=== PATIENT | female | born 1945 | race Caucasian/White ===

== ENCOUNTER 2021-05-12 17:52 | Inpatient (IN) | payer OTHER ==
[~2021-05-12] VITALS: Ht 147.3 cm; Wt 61.4 kg
[2021-05-12 19:53] LABS: Basophils # (auto) 0 10 ^3/uL (0-0.2); Basophils % (auto) 0.5 % (0.0-2.0); Eosinophils # (auto) 0 10 ^3/uL (0-0.8); Eosinophils % (auto) 0.5 % (0.0-7.0); Hematocrit 37.9 % (36.0-46.0); Hemoglobin 12.9 g/dL (12.2-16.2); Lymphocytes # (auto) 1.8 10 ^3/uL (0.4-5.4); Lymphocytes % (auto) 18.9 % (10.0-50.0); Mean Corpuscular Hemoglobin 31.1 pg (28.0-32.0); Mean Corpuscular Hgb Conc. 33.9 g/dL (32.0-36.0); Mean Corpuscular Volume 91.5 fL (80.0-100.0); Monocytes # (auto) 0.6 10 ^3/uL (0-1.3); Monocytes % (auto) 6.4 % (0.0-12.0); Neutrophils # (auto) 7.1 10 ^3/uL (1.6-8.6); Neutrophils % (auto) 73.7 % (37.0-80.0); Red Blood Cells 4.14 10^6/uL (4.0-5.20); Red Cell Distribution Width 12.8 % (11.8-14.3); White Blood Cell 9.6 10^3/uL (4.4-10.8)
[2021-05-12 20:16] LABS: Alanine Aminotransferase 20 U/L (13-56); Albumin 3.3 g/dL (3.4-5.0); Anion Gap 7 (5-15); Aspartate Aminotransferase 14 U/L (15-37); Blood Urea Nitrogen 23 mg/dL (7-18); Calcium 8.6 mg/dL (8.5-10.1); Carbon Dioxide 25 mmol/L (21-32); Chloride 107 mmol/L (98-107); GFR African American 87 mL/min; GFR Non-African American 72 mL/min; Glucose 91 mg/dL (74-106); Magnesium 2.4 mg/dL (1.6-2.6); Potassium 4.2 mmol/L (3.5-5.1); Sodium 139 mmol/L (136-145)
[2021-05-12 20:22] LABS: Alkaline Phosphatase 73 U/L (45-117); Bilirubin, Total 0.4 mg/dL (0.2-1.0); Total Protein 6.9 g/dL (6.4-8.2)
[2021-05-12] MEDS ORDERED: DOCUSATE SOD 100 MG CAP PO PRN (23:15)
[2021-05-12] MEDS ORDERED: NITROGLYCERIN 0.4 MG SL TAB SL PRN (23:15)
[2021-05-12] MEDS ORDERED: HYDROcodone-ACET 5/325MG TAB PO PRN (23:15)
[2021-05-12] MEDS ORDERED: ACETAMINOPHEN 325 MG TAB PO PRN (23:15)
[2021-05-12] MEDS ORDERED: MORPHINE SULFATE INJECTION 2 MG/2 ML SYRG IV PRN (23:15)
[2021-05-12] MEDS ORDERED: ONDANSETRON HCL 4 MG/2 ML VIAL IV PRN (23:15)
[2021-05-13 04:28] LABS: Basophils # (auto) 0.1 10 ^3/uL (0-0.2); Basophils % (auto) 0.6 % (0.0-2.0); Eosinophils # (auto) 0.1 10 ^3/uL (0-0.8); Eosinophils % (auto) 1.4 % (0.0-7.0); Hematocrit 35.9 % (36.0-46.0); Lymphocytes # (auto) 2.8 10 ^3/uL (0.4-5.4); Mean Corpuscular Hemoglobin 30.4 pg (28.0-32.0); Mean Corpuscular Hgb Conc. 33.3 g/dL (32.0-36.0); Mean Corpuscular Volume 91.1 fL (80.0-100.0); Monocytes # (auto) 0.6 10 ^3/uL (0-1.3); Monocytes % (auto) 7.3 % (0.0-12.0); Neutrophils # (auto) 4.7 10 ^3/uL (1.6-8.6); Neutrophils % (auto) 56.7 % (37.0-80.0); Nucleated Red Blood Cells % 0.1 %; Red Blood Cells 3.94 10^6/uL (4.0-5.20); Red Cell Distribution Width 12.9 % (11.8-14.3); White Blood Cell 8.3 10^3/uL (4.4-10.8)
[2021-05-13 05:00] LABS: Potassium 4.2 mmol/L (3.5-5.1)
[2021-05-13 05:08] LABS: Albumin 3.2 g/dL (3.4-5.0); BUN/Creatinine Ratio 31.6; Bilirubin, Total 0.5 mg/dL (0.2-1.0); Total Protein 6.7 g/dL (6.4-8.2)
[2021-05-13] MEDS: SODIUM CHLOR 0.9% PF (SALINE LOCK) 10ML VIAL/SYR IV SCH ×3 (06:17→20:53)
[2021-05-13 09:49] LABS: Urine Bacteria NONE SEEN /hpf (None Seen); Urine Blood Negative /uL (Negative); Urine Mucus FEW (None Seen); Urine Specific Gravity 1.027 (1.001-1.035); Urine WBC 115 /hpf (0 - 5)
[2021-05-13] MEDS ORDERED: ZINC SULFATE 220mg CAP or TAB PO SCH (10:00)
[2021-05-13] MEDS ORDERED: ASCORBIC ACID 500 MG TAB PO SCH (10:00)
[2021-05-13] MEDS: levETIRAcetam 500 MG TAB PO SCH ×2 (10:28→20:53)
[2021-05-13] MEDS: MULTIPLE VITAMIN TAB PO SCH (10:29)
[2021-05-13] MEDS: ENOXAPARIN SOD 40 MG/0.4 ML SYRINGE SC SCH (10:30)
[2021-05-13] MEDS: FAMOTIDINE 20 MG TAB PO SCH (10:30)
[2021-05-13] MEDS: cefTRIAXone 1GM/50ML D5W 50 ML IV SCH (12:57)
[2021-05-13 15:00] VITALS: BP 122/62
[2021-05-13 16:00] VITALS: BP 122/62
[2021-05-13] MEDS ORDERED: LORazepam 2MG/ML-1ML VIAL IV PRN ×2 (21:15)
[2021-05-13 22:00] VITALS: BP 123/61
[2021-05-14 05:00] VITALS: BP 129/73
[2021-05-14] MEDS: SODIUM CHLOR 0.9% PF (SALINE LOCK) 10ML VIAL/SYR IV SCH ×2 (05:15→14:19)
[2021-05-14 07:13] LABS: Basophils # (auto) 0 10 ^3/uL (0-0.2); Basophils % (auto) 0.7 % (0.0-2.0); Eosinophils # (auto) 0.1 10 ^3/uL (0-0.8); Eosinophils % (auto) 1.1 % (0.0-7.0); Hematocrit 38.7 % (36.0-46.0); Hemoglobin 12.8 g/dL (12.2-16.2); Lymphocytes % (auto) 30.1 % (10.0-50.0); Mean Corpuscular Volume 90.8 fL (80.0-100.0); Monocytes # (auto) 0.4 10 ^3/uL (0-1.3); Monocytes % (auto) 6.3 % (0.0-12.0); Neutrophils # (auto) 4.1 10 ^3/uL (1.6-8.6); Neutrophils % (auto) 61.8 % (37.0-80.0); Red Blood Cells 4.26 10^6/uL (4.0-5.20); Red Cell Distribution Width 12.7 % (11.8-14.3); White Blood Cell 6.7 10^3/uL (4.4-10.8)
[2021-05-14 07:28] LABS: BUN/Creatinine Ratio 28.6; Calcium 9.2 mg/dL (8.5-10.1); Potassium 4.2 mmol/L (3.5-5.1)
[2021-05-14] MEDS ORDERED: LEVE500T32 PO (08:06)
[2021-05-14] MEDS ORDERED: MONT5CHW23 PO (08:06)
[2021-05-14] MEDS ORDERED: GABA300C10 PO (08:06)
[2021-05-14] MEDS ORDERED: DULO60CA PO (08:06)
[2021-05-14] MEDS ORDERED: DICY20TA PO (08:06)
[2021-05-14 08:13] VITALS: BP 147/70
[2021-05-14 08:15] VITALS: BP 147/70
[2021-05-14] MEDS: cefTRIAXone 1GM/50ML D5W 50 ML IV SCH (08:37)
[2021-05-14] MEDS: levETIRAcetam 500 MG TAB PO SCH (10:31)
[2021-05-14] MEDS: FAMOTIDINE 20 MG TAB PO SCH (10:32)
[2021-05-14] MEDS: MULTIPLE VITAMIN TAB PO SCH (10:32)
[2021-05-14] MEDS: ENOXAPARIN SOD 40 MG/0.4 ML SYRINGE SC SCH (10:32)
[2021-05-14] MEDS ORDERED: DULO1CAP6 PO (12:41)
[2021-05-14] MEDS ORDERED: MONT10TA42 PO (12:41)
[2021-05-14] MEDS ORDERED: DICY10CA12 PO (12:41)
[2021-05-14] MEDS ORDERED: LEVE250T3 PO (12:41)
[2021-05-14 13:55] VITALS: BP 151/83
[2021-05-14 15:16] VITALS: BP 151/83
== END 2021-05-14 15:42 | disposition home health service (06) | DRG 689 ==
LOC: ER 17:52 → OVERFLOW 23:11 → CENTRAL 05-13 16:32
PROVIDERS: ADMIT Nurse Practitioner Family; ATTEND Internal Medicine
DX: N39.0 Urinary tract infection, site not specified (principal); G93.41 Metabolic encephalopathy; R55 Syncope and collapse; F32.9 Major depressive disorder, single episode, unspecified; G40.909 Epilepsy, unspecified, not intractable, without status epilepticus; R26.9 Unspecified abnormalities of gait and mobility; F03.90 Unspecified dementia, unspecified severity, without behavioral disturbance, psychotic disturbance, mood disturbance, and anxiety; F43.10 Post-traumatic stress disorder, unspecified; Z79.899 Other long term (current) drug therapy; S09.8XXA Other specified injuries of head, initial encounter; W18.39XA Other fall on same level, initial encounter; Z20.822 Contact with and (suspected) exposure to COVID-19; Z80.3 Family history of malignant neoplasm of breast; Z80.42 Family history of malignant neoplasm of prostate; Z82.49 Family history of ischemic heart disease and other diseases of the circulatory system; Z82.5 Family history of asthma and other chronic lower respiratory diseases; Z87.442 Personal history of urinary calculi; Z90.49 Acquired absence of other specified parts of digestive tract; Z90.710 Acquired absence of both cervix and uterus; Y93.89 Activity, other specified; Y92.098 Other place in other non-institutional residence as the place of occurrence of the external cause; Y99.8 Other external cause status
CPT/HCPCS: 36415; 70450; 70551; 71045; 71250; 80048; 80053; 81001; 82542; 83735; 84484; 85025; 87040; 87086; 87426; 93306; 96365; 96372; 97163; G0378; J0696

== ENCOUNTER 2023-10-26 21:34 | Inpatient (IN) | payer OTHER ==
[~2023-10-26] VITALS: Ht 144.8 cm; Wt 72.7 kg
[~2023-10-26 21:34] MED LIST: DICY10CA12 PO; DICY20TA PO; DULO1CAP6 PO; DULO60CA41 PO; GABA-1250 PO; LEVE250T78 PO; LEVE500T40 PO; MONT-8 PO; MONT5CHW12 PO
[2023-10-27] VITALS (14 sets, daily range): BP systolic 113–149; BP diastolic 58–93; PULSE 66–134; RESP 16–22; TEMP 97.8–98.4; O2SAT 92–99
[2023-10-27] MEDS ORDERED: DOCUSATE SOD 100 MG CAP PO PRN (01:30)
[2023-10-27] MEDS ORDERED: ACETAMINOPHEN 325 MG TAB PO PRN (01:30)
[2023-10-27] MEDS ORDERED: ONDANSETRON HCL 4 MG/2 ML VIAL IV PRN (01:30)
[2023-10-27] MEDS ORDERED: MORPHINE SULFATE INJ 2 MG/ml SYRG IV PRN (01:30)
[2023-10-27] MEDS ORDERED: NITROGLYCERIN 0.4 MG SL TAB SL PRN (01:30)
[2023-10-27] MEDS ORDERED: ALBUTEROL SULF 2.5 MG/0.5ML(0.5%) NEB SOLN NEB PRN (01:30)
[2023-10-27 06:43] LABS: Chloride 109 mmol/L (98-107); Potassium 4.7 mmol/L (3.5-5.1); Sodium 140 mmol/L (136-145)
[2023-10-27 06:44] LABS: Anion Gap 9 (5-15); Carbon Dioxide 22 mmol/L (20-30)
[2023-10-27 06:45] LABS: Calcium 9.5 mg/dL (8.7-10.4)
[2023-10-27 06:49] LABS: Basophils # (auto) 0 10 ^3/uL (0-0.2); Basophils % (auto) 0.1 % (0.0-2.0); Eosinophils # (auto) 0 10 ^3/uL (0-0.8); Glucose 131 mg/dL (74-106); Hematocrit 33.2 % (36.0-46.0); Lymphocytes # (auto) 0.7 10 ^3/uL (0.4-5.4); Lymphocytes % (auto) 6.7 % (10.0-50.0); Mean Corpuscular Hemoglobin 29.9 pg (28.0-32.0); Mean Corpuscular Hgb Conc. 33.1 g/dL (32.0-36.0); Mean Corpuscular Volume 90.6 fL (80.0-100.0); Monocytes # (auto) 0.3 10 ^3/uL (0-1.3); Monocytes % (auto) 2.5 % (0.0-12.0); Neutrophils # (auto) 9.6 10 ^3/uL (1.6-8.6); Neutrophils % (auto) 90.7 % (37.0-80.0); Red Blood Cells 3.67 10^6/uL (4.0-5.20); Red Cell Distribution Width 13.7 % (11.8-14.3); White Blood Cell 10.6 10^3/uL (4.4-10.8)
[2023-10-27 06:50] LABS: Blood Urea Nitrogen 16 mg/dL (9-23)
[2023-10-27] MEDS: methylPREDNISolone SOD SUCC 125 MG/2 ML VL IV SCH ×2 (09:45→22:08)
[2023-10-27] MEDS: levETIRAcetam 500 MG TAB PO SCH ×2 (09:46→22:07)
[2023-10-27] MEDS: PANTOPRAZOLE 40 MG TAB PO SCH (09:46)
[2023-10-27] MEDS: DULoxetine HCL 30 MG CAP PO SCH (09:46)
[2023-10-27] MEDS: APIXABAN 2.5 MG TAB PO SCH ×2 (09:46→22:07)
[2023-10-27] MEDS ORDERED: METOPROLOL TARTRATE 25 MG TAB PO SCH (10:00)
[2023-10-27] MEDS: LOPERAMIDE HCL 2 MG CAP/TAB PO PRN ×2 (15:40→22:06)
[2023-10-27] MEDS ORDERED: ALBUTEROL SULF 2.5 MG/0.5ML(0.5%) NEB SOLN NEB SCH (15:45)
[2023-10-27] MEDS ORDERED: LORazepam 0.5 MG TAB PO ONE (17:45)
[2023-10-27] MEDS: ALBUTEROL SULF 2.5 MG/0.5ML(0.5%) NEB SOLN NEB SCH ×2 (18:27→22:06)
[2023-10-28] VITALS (16 sets, daily range): BP systolic 113–140; BP diastolic 68–94; PULSE 86–140; RESP 14–18; TEMP 96.9–98.3; O2SAT 92–100
[2023-10-28] MEDS ORDERED: dilTIAZem 25 MG/5 ML VIAL IV ONE ×4 (00:30→23:30)
[2023-10-28] MEDS ORDERED: METOPROLOL TARTRATE 25 MG TAB PO SCH (01:00)
[2023-10-28 06:39] LABS: Hematocrit 34.1 % (36.0-46.0); Mean Corpuscular Hgb Conc. 32.3 g/dL (32.0-36.0); Mean Corpuscular Volume 89.8 fL (80.0-100.0); Red Cell Distribution Width 13.5 % (11.8-14.3); White Blood Cell 15.5 10^3/uL (4.4-10.8)
[2023-10-28 06:42] LABS: Chloride 110 mmol/L (98-107); Potassium 4.6 mmol/L (3.5-5.1); Sodium 141 mmol/L (136-145)
[2023-10-28 06:43] LABS: Anion Gap 8 (5-15); Calcium 9.8 mg/dL (8.5-10.1); Carbon Dioxide 23 mmol/L (20-30)
[2023-10-28 06:48] LABS: BUN/Creatinine Ratio 20.9 (10.0-20.0); Blood Urea Nitrogen 18 mg/dL (9-23); Glucose 131 mg/dL (74-106)
[2023-10-28] MEDS: ALBUTEROL SULF 2.5 MG/0.5ML(0.5%) NEB SOLN NEB SCH ×5 (07:12→22:00)
[2023-10-28 07:35] LABS: Band Neutrophils % (manual) 0; Basophils % (manual) 0 (0.0-2.0); Blast Cells 0; Eosinophils % (manual) 0 (0-7); Metamyelocytes % 0; Myelocytes % 0; Promyelocytes % 0; Reactive Lymphocytes 0
[2023-10-28 07:50] LABS: INR 1.23 (0.9-1.15); Partial Thromboplastin Time 31.9 SEC (24.5-34.5); Prothrombin Time 12.7 sec (9.3-11.8)
[2023-10-28 08:50] LABS: Lymphocytes % (manual) 4 (10.0-50.0); Monocytes % (manual) 2 (0-12); Platelet Estimate Adequate
[2023-10-28] MEDS ORDERED: DIGOXIN 0.25 MG TAB PO ONE (09:00)
[2023-10-28] MEDS: SODIUM CHLORIDE 0.9% 1,000 ML IV SCH ×2 (09:23→20:52)
[2023-10-28] MEDS: APIXABAN 2.5 MG TAB PO SCH ×2 (10:00→20:51)
[2023-10-28] MEDS: methylPREDNISolone SOD SUCC 125 MG/2 ML VL IV SCH ×2 (10:26→20:51)
[2023-10-28] MEDS: PANTOPRAZOLE 40 MG TAB PO SCH (10:29)
[2023-10-28] MEDS: DULoxetine HCL 30 MG CAP PO SCH (10:29)
[2023-10-28] MEDS: levETIRAcetam 500 MG TAB PO SCH ×2 (10:30→20:50)
[2023-10-28] MEDS: METOPROLOL TARTRATE 50 MG TAB PO SCH (11:19)
[2023-10-28] MEDS ORDERED: LIDOCAINE 2%HCL (LOCAL ANESTH.) INJ 20ML MDV ONE (11:48)
[2023-10-28] MEDS ORDERED: IODIXANOL 320MG/ML 100ML BTL IV ONE (11:48)
[2023-10-28] MEDS ORDERED: SODIUM CHL 0.9% 0 ML ONE (11:58)
[2023-10-28] MEDS ORDERED: fentaNYL CITRATE 100 MCG/2 ML VL ONE (11:58)
[2023-10-28] MEDS ORDERED: ANGIOMAX 250 MG VIAL IV ONE (11:58)
[2023-10-28] MEDS ORDERED: MIDAZOLAM HCL 2MG/2ML 2ml VIAL (1mg/ml) ONE (11:58)
[2023-10-28] MEDS: SACUBITRIL-VALSARTAN 24mg/26mg TAB PO SCH (20:51)
[2023-10-29] VITALS (18 sets, daily range): BP systolic 106–130; BP diastolic 53–83; PULSE 69–128; RESP 4–18; TEMP 97.7–98.4; O2SAT 94–100
[2023-10-29 05:18] LABS: Basophils # (auto) 0 10 ^3/uL (0-0.2); Basophils % (auto) 0.1 % (0.0-2.0); Eosinophils # (auto) 0 10 ^3/uL (0-0.8); Eosinophils % (auto) 0.1 % (0.0-7.0); Hematocrit 39.2 % (36.0-46.0); Hemoglobin 12.8 g/dL (12.2-16.2); Lymphocytes # (auto) 0.4 10 ^3/uL (0.4-5.4); Lymphocytes % (auto) 3.8 % (10.0-50.0); Mean Corpuscular Hemoglobin 29.6 pg (28.0-32.0); Mean Corpuscular Hgb Conc. 32.7 g/dL (32.0-36.0); Mean Corpuscular Volume 90.4 fL (80.0-100.0); Monocytes # (auto) 0.3 10 ^3/uL (0-1.3); Monocytes % (auto) 2.6 % (0.0-12.0); Neutrophils # (auto) 10.2 10 ^3/uL (1.6-8.6); Neutrophils % (auto) 93.4 % (37.0-80.0); Red Blood Cells 4.34 10^6/uL (4.0-5.20); Red Cell Distribution Width 13.6 % (11.8-14.3); White Blood Cell 10.9 10^3/uL (4.4-10.8)
[2023-10-29 05:22] LABS: Chloride 107 mmol/L (98-107); Potassium 3.9 mmol/L (3.5-5.1); Sodium 140 mmol/L (136-145)
[2023-10-29 05:23] LABS: Anion Gap 7 (5-15); Carbon Dioxide 26 mmol/L (20-30)
[2023-10-29 05:24] LABS: Calcium 9.4 mg/dL (8.7-10.4)
[2023-10-29 05:28] LABS: Blood Urea Nitrogen 18 mg/dL (9-23); Glucose 123 mg/dL (74-106)
[2023-10-29] MEDS: ALBUTEROL SULF 2.5 MG/0.5ML(0.5%) NEB SOLN NEB SCH ×5 (07:02→21:15)
[2023-10-29] MEDS: IPRATROPIUM BROM 0.5 MG/2.5ML INH SOL NEB PRN ×3 (07:03→18:34)
[2023-10-29] MEDS: DIGOXIN 0.125 MG TAB PO SCH (08:13)
[2023-10-29] MEDS: METOPROLOL TARTRATE 50 MG TAB PO SCH (08:14)
[2023-10-29] MEDS: SACUBITRIL-VALSARTAN 24mg/26mg TAB PO SCH ×2 (08:14→21:41)
[2023-10-29] MEDS: levETIRAcetam 500 MG TAB PO SCH ×2 (09:17→21:41)
[2023-10-29] MEDS: APIXABAN 2.5 MG TAB PO SCH ×2 (09:20→21:42)
[2023-10-29] MEDS: DULoxetine HCL 30 MG CAP PO SCH (09:20)
[2023-10-29] MEDS: methylPREDNISolone SOD SUCC 125 MG/2 ML VL IV SCH ×2 (09:21→21:42)
[2023-10-29] MEDS: EMPAGLIFLOZIN 10 MG TAB PO SCH (09:21)
[2023-10-29] MEDS: PANTOPRAZOLE 40 MG TAB PO SCH (09:21)
[2023-10-29] MEDS: SODIUM CHLORIDE 0.9% 1,000 ML IV SCH (12:49)
[2023-10-29] MEDS ORDERED: METOPROLOL SUCCINATE XL 50 MG TAB PO ONE (16:00)
[2023-10-29] MEDS ORDERED: METOPROLOL TARTRATE 1MG/1ML-5ML VIAL IV ONE (19:30)
[2023-10-29] MEDS ORDERED: dilTIAZem 25 MG/5 ML VIAL IV ONE (20:30)
[2023-10-29] MEDS ORDERED: traZODone HCL 50 MG TAB PO SCH (22:00)
[2023-10-30] VITALS (12 sets, daily range): BP systolic 101–121; BP diastolic 57–99; PULSE 56–176; RESP 16–22; TEMP 36.7; O2SAT 91–100
[2023-10-30] MEDS: SODIUM CHLORIDE 0.9% 1,000 ML IV SCH ×2 (02:01→14:20)
[2023-10-30 05:51] LABS: Chloride 107 mmol/L (98-107); Sodium 142 mmol/L (136-145)
[2023-10-30 05:52] LABS: Anion Gap 5 (5-15); Carbon Dioxide 30 mmol/L (20-30)
[2023-10-30 05:53] LABS: Calcium 8.9 mg/dL (8.7-10.4)
[2023-10-30 05:57] LABS: Glucose 139 mg/dL (74-106)
[2023-10-30 05:58] LABS: BUN/Creatinine Ratio 23.9 (10.0-20.0); Blood Urea Nitrogen 21 mg/dL (9-23)
[2023-10-30 06:15] LABS: Basophils # (auto) 0 10 ^3/uL (0-0.2); Eosinophils # (auto) 0 10 ^3/uL (0-0.8); Hematocrit 38.4 % (36.0-46.0); Hemoglobin 12.6 g/dL (12.2-16.2); Lymphocytes # (auto) 0.4 10 ^3/uL (0.4-5.4); Lymphocytes % (auto) 4.3 % (10.0-50.0); Mean Corpuscular Hemoglobin 29.3 pg (28.0-32.0); Mean Corpuscular Hgb Conc. 32.7 g/dL (32.0-36.0); Mean Corpuscular Volume 89.4 fL (80.0-100.0); Monocytes # (auto) 0.2 10 ^3/uL (0-1.3); Monocytes % (auto) 2.5 % (0.0-12.0); Neutrophils # (auto) 9.4 10 ^3/uL (1.6-8.6); Neutrophils % (auto) 93.2 % (37.0-80.0); Nucleated Red Blood Cells % 0.1 %; Red Blood Cells 4.29 10^6/uL (4.0-5.20); Red Cell Distribution Width 13.3 % (11.8-14.3); White Blood Cell 10.1 10^3/uL (4.4-10.8)
[2023-10-30] MEDS: ALBUTEROL SULF 2.5 MG/0.5ML(0.5%) NEB SOLN NEB SCH ×4 (06:57→18:00)
[2023-10-30] MEDS: IPRATROPIUM BROM 0.5 MG/2.5ML INH SOL NEB PRN ×3 (06:57→14:23)
[2023-10-30] MEDS: PANTOPRAZOLE 40 MG TAB PO SCH (09:00)
[2023-10-30] MEDS: APIXABAN 2.5 MG TAB PO SCH (09:00)
[2023-10-30] MEDS: DIGOXIN 0.125 MG TAB PO SCH (09:00)
[2023-10-30] MEDS: levETIRAcetam 500 MG TAB PO SCH (09:02)
[2023-10-30] MEDS: EMPAGLIFLOZIN 10 MG TAB PO SCH (09:03)
[2023-10-30] MEDS: DULoxetine HCL 30 MG CAP PO SCH (09:30)
[2023-10-30] MEDS: SACUBITRIL-VALSARTAN 24mg/26mg TAB PO SCH (09:30)
[2023-10-30] MEDS: methylPREDNISolone SOD SUCC 125 MG/2 ML VL IV SCH (09:31)
[2023-10-30] MEDS ORDERED: dilTIAZem 120MG ER CAP PO SCH (10:00)
[2023-10-30] MEDS ORDERED: METOPROLOL SUCCINATE XL 50 MG TAB PO SCH (10:00)
[2023-10-30] MEDS ORDERED: DIGO1TAB48 PO ×3 (15:05→16:07)
[2023-10-30] MEDS ORDERED: SACU1TAB PO ×3 (15:05→16:07)
[2023-10-30] MEDS ORDERED: APIX2.5T PO ×3 (15:05→16:07)
[2023-10-30] MEDS ORDERED: EMPA1TAB PO ×3 (15:05→16:07)
[2023-10-30] MEDS ORDERED: METO-6 PO ×3 (15:05→16:07)
[2023-10-30] MEDS ORDERED: ALBUAER3 IN ×3 (15:05→16:07)
[2023-10-30] MEDS ORDERED: DILT-29 PO ×3 (15:06→16:07)
== END 2023-10-30 18:47 | disposition home or self-care (01) | DRG 286 ==
LOC: TELE-CENTR 10-27 00:40
PROVIDERS: ADMIT Nurse Practitioner Family; ATTEND Internal Medicine
PROC: 4A023N8 Measurement of Cardiac Sampling and Pressure, Bilateral, Percutaneous Approach (ICD-10-PCS; principal; 2023-10-28)
PROC: B211YZZ Fluoroscopy of Multiple Coronary Arteries using Other Contrast (ICD-10-PCS; 2023-10-28)
PROC: B215YZZ Fluoroscopy of Left Heart using Other Contrast (ICD-10-PCS; 2023-10-28)
DX: I13.0 Hypertensive heart and chronic kidney disease with heart failure and stage 1 through stage 4 chronic kidney disease, or unspecified chronic kidney disease (principal); I50.23 Acute on chronic systolic (congestive) heart failure; J96.01 Acute respiratory failure with hypoxia; J45.901 Unspecified asthma with (acute) exacerbation; I48.20 Chronic atrial fibrillation, unspecified; J44.1 Chronic obstructive pulmonary disease with (acute) exacerbation; I34.0 Nonrheumatic mitral (valve) insufficiency; I42.9 Cardiomyopathy, unspecified; N18.9 Chronic kidney disease, unspecified; Z20.822 Contact with and (suspected) exposure to COVID-19; G40.909 Epilepsy, unspecified, not intractable, without status epilepticus; I25.10 Atherosclerotic heart disease of native coronary artery without angina pectoris; Z79.01 Long term (current) use of anticoagulants; Z82.49 Family history of ischemic heart disease and other diseases of the circulatory system
CPT/HCPCS: 36415; 80048; 85007; 85025; 85027; 85610; 85730; 86850; 86900; 86901; 93005; 93306; 94640; 97110; 97116; 97163; 97530; 99152; G0378; J2250; Q9967

== ENCOUNTER 2024-02-12 13:28 | Inpatient (IN) | payer OTHER ==
[~2024-02-12] VITALS: Ht 144.8 cm; Wt 74.3 kg
[~2024-02-12 13:28] MED LIST changes: +ALBU108A5 INH; +AMIO200T33 PO; +APIX2.5T PO; +BRIN1SUS7 RIGHTEYE; +DICY-89 PO; -DICY10CA12 PO; +DORZ2SOL18; +EMPA1TAB PO; +LATA0.0020 EACHEYE; -MONT5CHW12 PO; +SACU1TAB PO; +TRAZ-227 PO
[2024-02-12 13:30] VITALS: PULSE 108; RESP 16; O2SAT 92
[2024-02-12 14:40] LABS: Basophils # (auto) 0.1 10 ^3/uL (0-0.2); Basophils % (auto) 0.8 % (0.0-2.0); Eosinophils # (auto) 0.1 10 ^3/uL (0-0.8); Eosinophils % (auto) 0.6 % (0.0-7.0); Hematocrit 37.8 % (36.0-46.0); Hemoglobin 12.4 g/dL (12.2-16.2); Lymphocytes # (auto) 1.4 10 ^3/uL (0.4-5.4); Lymphocytes % (auto) 11.9 % (10.0-50.0); Mean Corpuscular Hemoglobin 28.5 pg (28.0-32.0); Mean Corpuscular Hgb Conc. 32.9 g/dL (32.0-36.0); Mean Corpuscular Volume 86.5 fL (80.0-100.0); Monocytes # (auto) 0.7 10 ^3/uL (0-1.3); Monocytes % (auto) 5.8 % (0.0-12.0); Neutrophils # (auto) 9.4 10 ^3/uL (1.6-8.6); Neutrophils % (auto) 80.9 % (37.0-80.0); Red Blood Cells 4.37 10^6/uL (4.0-5.20); Red Cell Distribution Width 15.5 % (11.8-14.3); White Blood Cell 11.6 10^3/uL (4.4-10.8)
[2024-02-12 14:59] LABS: INR 1.17 (0.9-1.15); Partial Thromboplastin Time 26.9 SEC (24.5-34.5); Prothrombin Time 12.3 sec (9.3-11.8)
[2024-02-12] MEDS: ONDANSETRON HCL 4 MG/2 ML VIAL IV ONE (15:02)
[2024-02-12 15:03] LABS: Alanine Aminotransferase 15 U/L (7-40); Albumin 4.4 g/dL (3.2-4.8); Alkaline Phosphatase 90 U/L (46-116); Anion Gap 11 (5-15); Aspartate Aminotransferase 21 U/L (13-40); BUN/Creatinine Ratio 26.5 (10.0-20.0); Bilirubin, Total 0.5 mg/dL (0.2-1.0); Blood Urea Nitrogen 43 mg/dL (9-23); Calcium 10.2 mg/dL (8.7-10.4); Carbon Dioxide 30 mmol/L (20-30); Chloride 97 mmol/L (98-107); Glucose 121 mg/dL (74-106); Magnesium 2.3 mg/dL (1.6-2.6); Potassium 2.6 mmol/L (3.5-5.1); Sodium 138 mmol/L (136-145); Total Protein 7.4 g/dL (5.7-8.2)
[2024-02-12] MEDS: METOPROLOL TARTRATE 1MG/1ML-5ML VIAL IV ONE (15:09)
[2024-02-12] MEDS: MORPHINE SULFATE INJ 2 MG/ml SYRG IV ONE (15:54)
[2024-02-12] MEDS ORDERED: NITROGLYCERIN 0.4 MG SL TAB SL PRN (17:00)
[2024-02-12] MEDS: POTASSIUM EFFERVESENT TAB 25 MEQ PO ONE (18:01)
[2024-02-12] MEDS: POTASSIUM CHLORIDE 40 MEQ, LIDOCAINE 1% (LOCAL ANESTH.) 4 ML in SODIUM CHL 0.9% 250 ML IV ONE (18:02)
[2024-02-12 18:22] LABS: Urine Bacteria FEW /hpf (None Seen); Urine Blood TRACE /uL (Negative); Urine Budding Yeast OCCASIONAL /hpf (None Seen); Urine Clarity Clear (Clear); Urine Color Colorless (Yellow); Urine Hyaline Cast MANY /lpf (0 - 2); Urine Protein, UAD Negative (Negative); Urine Specific Gravity 1.009 (1.001-1.035); Urine Urobilinogen Normal (Negative); Urine WBC 3 /hpf (0 - 5); Urine pH 5.5 (5.0-9.0)
[2024-02-12 19:30] VITALS: PULSE 65; RESP 96; O2SAT 96
[2024-02-12] MEDS: ONDANSETRON HCL 4 MG/2 ML VIAL IV PRN (19:35)
[2024-02-12] MEDS: MORPHINE SULFATE INJ 2 MG/ml SYRG IV PRN ×2 (19:36→22:33)
[2024-02-12] MEDS: D5W/SOD CHL 0.45% 1,000 ML IV ONE (20:09)
[2024-02-12] MEDS: LATANOPROST 0.005 % OPTH(EYE) SOL 2.5ML EACHEYE SCH (20:18)
[2024-02-12] MEDS: SENNA 8.6 MG TAB PO SCH (22:00)
[2024-02-12] MEDS: BRIMONIDINE TARTRATE RIGHTEYE SCH (22:00)
[2024-02-12] MEDS: BRINZOLAMIDE RIGHTEYE SCH (22:00)
[2024-02-12 22:06] VITALS: BP_SYST 104; BP_DIAS 73; BP_DIAS 77; PULSE 69; RESP 20; TEMP 98.1; O2SAT 92; O2SAT 95; O2SAT 99
[2024-02-12] MEDS: DICYCLOMINE HCL 10 MG CAP PO SCH (22:48)
[2024-02-12] MEDS: levETIRAcetam 500 MG TAB PO SCH (22:48)
[2024-02-12] MEDS: MAGNESIUM OXIDE 400 MG TAB PO SCH (22:48)
[2024-02-12] MEDS: GABAPENTIN 300 MG CAP PO SCH (22:48)
[2024-02-12] MEDS: traZODone HCL 50 MG TAB PO SCH (22:49)
[2024-02-12] MEDS: SACUBITRIL-VALSARTAN 24mg/26mg TAB PO SCH (22:49)
[2024-02-13] VITALS (11 sets, daily range): BP systolic 94–152; BP diastolic 32–78; PULSE 55–83; RESP 16–20; TEMP 97.2–98.2; O2SAT 92–99
[2024-02-13 06:12] LABS: Anion Gap 6 (5-15); Calcium 9.4 mg/dL (8.7-10.4); Carbon Dioxide 30 mmol/L (20-30); Chloride 99 mmol/L (98-107); Potassium 3.8 mmol/L (3.5-5.1); Sodium 135 mmol/L (136-145)
[2024-02-13 06:18] LABS: BUN/Creatinine Ratio 20.1 (10.0-20.0); Blood Urea Nitrogen 41 mg/dL (9-23); Glucose 100 mg/dL (74-106); Magnesium 2.4 mg/dL (1.6-2.6)
[2024-02-13] MEDS: DULoxetine HCL 30 MG CAP PO SCH (10:00)
[2024-02-13] MEDS: FAMOTIDINE 20 MG TAB PO SCH (10:00)
[2024-02-13] MEDS: MONTELUKAST SODIUM 10 MG TAB PO SCH (10:00)
[2024-02-13] MEDS: AMIODARONE HCL 200 MG TAB PO SCH (10:00)
[2024-02-13] MEDS: HYDROcodone-ACET 5/325MG TAB PO PRN (10:06)
[2024-02-13 10:55] LABS: Hepatitis B Surface Antigen Negative (Negative)
[2024-02-13 11:16] LABS: Hepatitis C Antibody Negative (Negative)
[2024-02-13] MEDS: SODIUM CHLORIDE 0.9% 500 ML IV ONE (11:30)
[2024-02-13] MEDS ORDERED: ceFAZolin 2 GM/D5W50ml 50 ML IV ONE (13:18)
[2024-02-13] MEDS ORDERED: fentaNYL CITRATE 100 MCG/2 ML VL ONE (13:25)
[2024-02-13] MEDS ORDERED: MEPERIDINE HCL (50 MG/ML) 1 ML VIAL ONE (13:26)
[2024-02-13] MEDS ORDERED: MIDAZOLAM HCL 2MG/2ML 2ml VIAL (1mg/ml) ONE (13:26)
[2024-02-13] MEDS ORDERED: ONDANSETRON HCL 4 MG/2 ML VIAL IV ONE (13:45)
[2024-02-13] MEDS ORDERED: HYDROmorphone HCL 2 MG/ML VL/or syr IV PRN (13:45)
[2024-02-13] MEDS ORDERED: MIDAZOLAM HCL 2MG/2ML 2ml VIAL (1mg/ml) IV PRN (13:45)
[2024-02-13] MEDS ORDERED: ePHEDrine SULFATE 50 MG/ML AMP IV PRN (13:45)
[2024-02-13] MEDS ORDERED: LABETALOL HCL 5 MG/ML 4ML SYRINGE IV PRN (13:45)
[2024-02-13] MEDS ORDERED: MORPHINE SULFATE 4 MG/ML SYR/VIAL IV PRN (13:45)
[2024-02-13] MEDS ORDERED: PROPOFOL 10 MG/ML 20 ML IV ONE (14:12)
[2024-02-13] MEDS ORDERED: DexAMETHasone SOD PHOS 10MG/1ML VIAL INJ ONE (14:12)
[2024-02-13] MEDS ORDERED: ONDANSETRON HCL 4 MG/2 ML VIAL ONE (14:15)
[2024-02-13] MEDS ORDERED: FURO40TA4 PO (18:19)
[2024-02-13] MEDS ORDERED: ASPI-543 PO (18:19)
[2024-02-13] MEDS ORDERED: CLOP75TA28 PO (18:19)
[2024-02-13] MEDS ORDERED: GABA-1250 PO ×2 (18:21)
[2024-02-13] MEDS: ceFAZolin 1GM/50ML 50 ML IV SCH (22:18)
[2024-02-14] VITALS (9 sets, daily range): BP systolic 96–126; BP diastolic 37–71; PULSE 60–90; RESP 14–28; TEMP 97.9–98.3; O2SAT 92–99
[2024-02-14 06:07] LABS: Basophils # (auto) 0.1 10 ^3/uL (0-0.2); Basophils % (auto) 0.7 % (0.0-2.0); Eosinophils # (auto) 0 10 ^3/uL (0-0.8); Hematocrit 31.5 % (36.0-46.0); Hemoglobin 10.2 g/dL (12.2-16.2); Lymphocytes # (auto) 0.8 10 ^3/uL (0.4-5.4); Lymphocytes % (auto) 6.3 % (10.0-50.0); Mean Corpuscular Hemoglobin 28.2 pg (28.0-32.0); Mean Corpuscular Hgb Conc. 32.2 g/dL (32.0-36.0); Mean Corpuscular Volume 87.7 fL (80.0-100.0); Monocytes # (auto) 0.8 10 ^3/uL (0-1.3); Monocytes % (auto) 6.4 % (0.0-12.0); Neutrophils # (auto) 10.5 10 ^3/uL (1.6-8.6); Neutrophils % (auto) 86.6 % (37.0-80.0); Red Blood Cells 3.59 10^6/uL (4.0-5.20); Red Cell Distribution Width 15.2 % (11.8-14.3); White Blood Cell 12.1 10^3/uL (4.4-10.8)
[2024-02-14 06:27] LABS: Chloride 102 mmol/L (98-107); Potassium 3.9 mmol/L (3.5-5.1); Sodium 138 mmol/L (136-145)
[2024-02-14 06:28] LABS: Anion Gap 5 (5-15); Calcium 9.7 mg/dL (8.5-10.1); Carbon Dioxide 31 mmol/L (20-30)
[2024-02-14 06:33] LABS: BUN/Creatinine Ratio 25.5 (10.0-20.0); Glucose 122 mg/dL (74-106)
[2024-02-14 06:34] LABS: Blood Urea Nitrogen 28 mg/dL (9-23)
[2024-02-14] MEDS: HYDROcodone-ACET 10/325MG TAB PO PRN (18:45)
[2024-02-15 01:00] VITALS: BP 99/43; PULSE 62; RESP 14; TEMP 97.6; O2SAT 91
[2024-02-15 05:00] VITALS: BP 95/36; PULSE 66; RESP 14; TEMP 97.8; O2SAT 95
[2024-02-15 08:00] VITALS: PULSE 69
[2024-02-15] MEDS: FAMOTIDINE 20 MG TAB PO SCH (08:52)
[2024-02-15 09:00] VITALS: BP 97/47; PULSE 72; RESP 18; TEMP 98.6; O2SAT 93
[2024-02-15] MEDS: SODIUM CHLORIDE 0.9% 250 ML IV ONE ×2 (09:24→17:15)
[2024-02-15 13:00] VITALS: BP 104/35; PULSE 58; RESP 18; TEMP 98; O2SAT 97
[2024-02-15] MEDS ORDERED: PERCOT PO (14:12)
[2024-02-15] MEDS ORDERED: SENN-58 PO (14:12)
[2024-02-15] MEDS: LACTULOSE 20Gm/30ML SOLN PO ONE (14:39)
[2024-02-15 17:00] VITALS: BP 105/73; PULSE 60; RESP 16; TEMP 97.9; O2SAT 97
[2024-02-16] MEDS ORDERED: FAMOTIDINE 20 MG TAB PO SCH (10:00)
== END 2024-02-15 20:45 | DRG 493 ==
LOC: EDUNIT# 13:28 → ER 13:28 → EDBD 13:28 → TELE 16:57 → TELE-EAST 21:50
PROVIDERS: ADMIT Hospitalist; ATTEND Hospitalist
PROC: 0QSH04Z Reposition Left Tibia with Internal Fixation Device, Open Approach (ICD-10-PCS; principal; 2024-02-13 13:23)
DX: S82.852A Displaced trimalleolar fracture of left lower leg, initial encounter for closed fracture (principal); I13.0 Hypertensive heart and chronic kidney disease with heart failure and stage 1 through stage 4 chronic kidney disease, or unspecified chronic kidney disease; I48.20 Chronic atrial fibrillation, unspecified; N17.9 Acute kidney failure, unspecified; E87.6 Hypokalemia; S92.132A Displaced fracture of posterior process of left talus, initial encounter for closed fracture; G40.909 Epilepsy, unspecified, not intractable, without status epilepticus; I50.9 Heart failure, unspecified; N18.9 Chronic kidney disease, unspecified; Z82.49 Family history of ischemic heart disease and other diseases of the circulatory system; Z82.5 Family history of asthma and other chronic lower respiratory diseases; Z87.442 Personal history of urinary calculi; Z90.49 Acquired absence of other specified parts of digestive tract; Z90.710 Acquired absence of both cervix and uterus; Z79.01 Long term (current) use of anticoagulants; Z83.3 Family history of diabetes mellitus; Z95.818 Presence of other cardiac implants and grafts; W01.0XXA Fall on same level from slipping, tripping and stumbling without subsequent striking against object, initial encounter; Y93.89 Activity, other specified; Y92.002 Bathroom of unspecified non-institutional (private) residence as the place of occurrence of the external cause; Y99.9 Unspecified external cause status
CPT/HCPCS: 36415; 71045; 73600; 73610; 76000; 80048; 80053; 81001; 83735; 84484; 85025; 85610; 85730; 86803; 87081; 87340; 93005; 96365; 96375; 97110; 97116; 97163; 97530; G0378; J1100; J2001; J2250; J2405; J2704

== ENCOUNTER 2024-10-15 13:28 | Emergency (ER) | payer OTHER ==
[~2024-10-15] VITALS: Ht 147.3 cm; Wt 78.2 kg
[~2024-10-15 13:28] MED LIST changes: +ASPI-543 PO; +CLOP75TA28 PO; +FURO40TA4 PO; +PERCOT PO; +SENN-58 PO
--- NOTE | 2024-10-15 14:00 | ED.PDOC ---
SOB-HPI HPI Comments 79 year old female presents to the ED with a chief complaint of shortness of breath onset today. Patient states she has been experiencing congestion and a productive cough with white phlegm for the past 3 days. Patient woke up today experiencing RT sided chest pain, described as a pressure sensation as well as shortness of breath. Past medical history of CVA, anemia, HTN, A-fib, CKF, kidney stones, seizures. Denies nausea, vomiting, diarrhea, fever, abdominal pain, headache, dizziness, dysuria. No other symptoms or modifying factors present at this time. Chief Complaint: Shortness of Breath Time Seen by MD: 13:50 Reviewed notes: Medications, Allergies Information Source: Patient, Relative (Child) Mode of Arrival: Ambulatory Severity: Moderate Timing: Hours Duration: Since onset Context: With Light Exertion PE Risk Factors: None History of: CHF Prehospital treatment: None Modifying Factors: Nothing Associated Signs and Symptoms: Cough, Chest Pain Quality: Pressure Radiation: No Radiation Location: Chest (R) If cough with SOB: Productive, White Past Medical History PAST MEDICAL HISTORY: AFIB, Anemia, CHF, CKF, CVA, Kidney Stones, Seizures Surgical History: Appendectomy, Hysterectomy Surgical History (Other): valve replacement FLOORWALKER History: No Pertinent FLOORWALKER History Family History Family History: No family hx of DM, Family hx of Cancer, Family hx of heart [place] Social History Smoker: Non-Smoker Alcohol: Occasionally Drugs: Denies Drug Use Lives In: Home Constitutional: denies: chills, diaphoresis, fatigue, fever, malaise, sweats, weakness, others EENTM: denies: blurred vision, double vision, ear bleeding, ear discharge, ear drainage, ear pain, ear ringing, eye pain, eye redness, hearing loss, mouth pain, mouth swelling, nasal discharge, nose bleeding, nose congestion, nose pain, photophobia, tearing, throat pain, throat swelling, voice changes, others Respiratory: reports: cough, shortness of breath; denies: hemoptysis, orthopnea, SOB at rest, SOB with excertion, stridor, wheezing, others Cardiovascular: reports: chest pain (RT sided); denies: dizzy spells, diaphoresis, Dyspnea on exertion, edema, irregular heart beat, left arm pain, lightheadedness, palpitations, PND, syncope, others Gastrointestinal: denies: abdomen distended, abdominal pain, blood streaked bowels, constipated, diarrhea, dysphagia, difficulty swallowing, hematemesis, melena, nausea, poor appetite, poor fluid intake, rectal bleeding, rectal pain, vomiting, others Genitourinary: denies: abnormal vagina bleeding, burning, dyspareunia, dysuria, flank pain, frequency, hematuria, incontinence, pain, , vagina discharge, urgency, others Neurological: denies: dizziness, fainting, headache, left sided numbness, left sided weakness, numbness, paresthesia, pre-existing deficit, right sided numbness, right sided weakness, seizure, speech problems, tingling, tremors, weakness, others Musculoskeletal: denies: back pain, gout, joint pain, joint swelling, muscle pain, muscle stiffness, neck pain, others Integumetry: denies: bruises, change in color, change in hair/nails, dryness, laceration, lesions, lumps, rash, wounds, others Allergic/Immunocompromised: denies: Difficulty Healing, Frequent Infections, Hives, Itching, others Hematologic/Lymphatic: denies: anemia, blood clots, easy bleeding, easy bruising, swollen glands, others Endocrine: denies: excessive hunger, excessive sweating, excessive thirst, excessive urination, flushing, intolerance to cold, intolerance to heat, unexplained weight gain, unexplained weight loss, others Psychiatric: denies: anxiety, bipolar disorder, depression, hopeless, panic disorder, schizophrenia, sleepless, suicidal, others All Other Systems: Reviewed and Negative Physical Exam General Appearance: No Apparent Distress HEENT: Normal ENT Inspection, Pharynx Normal, TMs Normal Neck: Full Range of Motion, Non-Tender, Normal, Normal Inspection Respiratory: Chest Non-Tender, Lungs Clear, No Accessory Muscle Use, No Respiratory Distress, Normal Breath Sounds Cardiovascular: No Edema, No JVD, No Murmur, No Gallop, Normal Peripheral Pul ses, Regular Rate/Rhythm Breast Exam: Deferred Gastrointestinal: No Organomegaly, Non Tender, No Pulsatile Mass, Normal Bowel Sounds, Soft Genitalia: Deferred Pelvic: Deferred Rectal: Deferred Extremities: No calf tenderness, Normal capillary refill, Normal inspection, Normal range of motion, Non-tender, No pedal edema Musculoskeletal : Apperance: Normal Neurologic: Alert, lpn instructor II-XII nml as Tested, No Motor Deficits, Normal Affect, Normal Mood, No Sensory Deficits Cerebellar Function: Normal Reflexes: Normal Skin: Dry, Normal Color, Warm Lymphatic: No Adenopathy EKG EKG : Cardiac Rhythm: Junctional (52 bpm) Comments junctional rhythm with 52 bpm Was a procedure done? Was a procedure done?: No Differential Dx Differential Diagnosis: Asthma, Bronchitis, CHF, COPD, Pneumonia X-Ray, Labs, Meds, VS Vital Signs Date Time Temp Pulse Resp B/P (MAP) Pulse Ox O2 Delivery O2 Flow Rate FiO2 10/15/24 15:39 97.9 59 18 139/97 (111) 99 97.9 10/15/24 15:37 Room Air* 0 21 10/15/24 13:51 97.6 50 18 138/97 (111) 96 Lab Test 10/15/24 15:53 10/15/24 14:29 Range/Units Troponin I High Sensitivity 20 20 </=34 ng/L White Blood Count 9.2 4.4-10.8 10^3/uL Red Blood Count 3.80 L 4.0-5.20 10^6/uL Hemoglobin 10.0 L 12.2-16.2 g/dL Hematocrit 32.0 L 36.0-46.0 % Mean Corpuscular Volume 84.3 80.0-100.0 fL Mean Corpuscular Hemoglobin 26.4 L 28.0-32.0 pg Mean Corpuscular Hemoglobin Concent 31.3 L 32.0-36.0 g/dL Red Cell Distribution Width 15.0 H 11.8-14.3 % Platelet Count 322 140-450 10^3/uL Mean Platelet Volume 6.6 L 6.9-10.8 fL Neutrophils (%) (Auto) 65.9 37.0-80.0 % Lymphocytes (%) (Auto) 22.1 10.0-50.0 % Monocytes (%) (Auto) 9.5 0.0-12.0 % Eosinophils (%) (Auto) 1.2 0.0-7.0 % Basophils (%) (Auto) 1.3 0.0-2.0 % Neutrophils # (Auto) 6.1 1.6-8.6 10 ^3/uL Lymphocytes # (Auto) 2.0 0.4-5.4 10 ^3/uL Monocytes # (Auto) 0.9 0-1.3 10 ^3/uL Eosinophils # (Auto) 0.1 0-0.8 10 ^3/uL Basophils # (Auto) 0.1 0-0.2 10 ^3/uL Nucleated Red Blood Cells 0.0 % Sodium Level 141 136-145 mmol/L Potassium Level 4.3 3.5-5.1 mmol/L Chloride Level 107 98-107 mmol/L Carbon Dioxide Level 26 20-31 mmol/L Anion Gap 8 5-15 Blood Urea Nitrogen 24 H 9-23 mg/dL Creatinine 1.14 H 0.550-1.02 mg/dL Glomerular Filtration Rate Calc 49 >90 mL/min BUN/Creatinine Ratio 21.1 H 10.0-20.0 Serum Glucose 99 74-106 mg/dL Calcium Level 9.9 8.7-10.4 mg/dL PROCEDURE(s): CXR2 - CHEST TWO VIEWS ROUTINE IMPRESSION: 1. No acute cardiopulmonary pathology At this time, the CBC shows mild anemia with a hemoglobin of 10 and hematocrit of 32 The chemistry panel is within normal limits The patient was evaluated by the hospitalist (Dr. Burkett) At this time we feel that the patient can be safely discharged The patient will be discharged by him and he will have the patient follow up with their primary care doctor The patient was discharged Images Reviewed?: Images reviewed and evaluated by me Time of 1ST Reevaluation: 14:20 Reevaluation 1ST: Unchanged Patient Education/Counseling: Diagnosis, Treatment, Prognosis, Need For Follow Up Family Education/Counseling: Diagnosis, Treatment, Prognosis, Need For Follow Up Additional Information The following tests were ordered, and results were reviewed by me: Trop -X3, CBC, BMP, XY Chest 2 views, EKG -X3 Additional Information was gathered from interviewing the following independent historians: son I reviewed and agreed with the following test results read by other providers: XY CHEST 2 VIEWS I discussed treatment and results with medical personnel and patient, son Departure 1 Departure Time of Disposition: 17:10 Impression: Primary Impression: Viral syndrome Additional Impression: Cough Qualified Codes: R05.9 - Cough, unspecified Disposition: 01 HOME / SELF CARE / HOMELESS Condition: Fair Discharged With: Self, Relative Critical Care Note Critical Care Time?: No Stability Stability form required: No Heart Score Heart Score: Heart Score Response (Comments) Value History N/A 0 EKG N/A 0 Age N/A 0 Risk Factors N/A 0 Troponin N/A 0 Total 0 I personally scribed for LV ACUNA MD ([email or web address]) on 10/15/24 at 14:00. Electronically submitted by Tiera Gilman ([email or web address]). I personally scribed for LV ACUNA MD ([email or web address]) on 10/15/24 at 15:25. Electronically submitted by Tiera Gilman ([email or web address]). I personally scribed for LV ACUNA MD ([email or web address]) on 10/15/24 at 15:27. Electronically submitted by Tiera Gilman ([email or web address]). I personally scribed for LV ACUNA MD ([email or web address]) on 10/15/24 at 15:54. Electronically submitted by Maria Alejandra Reynolds ([facility]). LV ACUNA MD Oct 15, 2024 14:00
--- NOTE | 2024-10-15 14:06 | ECG ---
[facility] Test Date: 2024-10-15 Test Time: 13:41:59 Pat Name: DELFINO MARTEL Department: ER Room: Gender: F [employer] K[employer]: : 1945 Requested By: LV ACUNA Order Number: [id number] Reading MD: Darrin Marin Measurements Intervals [place] Rate: 52 P: 0 [place]: 0 QRS: 77 QRSD: 94 T: 0 QT: 469 QTc: 437 Interpretive Statements Junctional rhythm Posterior infarct, acute (LCx) Electronically Signed On 10-18-2024 16:31:57 PST by Darrin Marin Please click the below link to view image of tracing.
--- NOTE | 2024-10-15 14:23 | DVH ---
Chest x-ray Technique: PA and lateral views Comparison: 01/1924 CLINICAL INDICATION: Shortness of breath FINDINGS: Heart size is enlarged. Pulmonary artery prominent. No infiltrates or effusions. Degenerati ve changes in the thoracic spine. IMPRESSION: 1. No acute cardiopulmonary pathology
[2024-10-15 14:43] LABS: Basophils # (auto) 0.1 10 ^3/uL (0-0.2); Basophils % (auto) 1.3 % (0.0-2.0); Eosinophils # (auto) 0.1 10 ^3/uL (0-0.8); Eosinophils % (auto) 1.2 % (0.0-7.0); Lymphocytes % (auto) 22.1 % (10.0-50.0); Mean Corpuscular Hemoglobin 26.4 pg (28.0-32.0); Mean Corpuscular Hgb Conc. 31.3 g/dL (32.0-36.0); Mean Corpuscular Volume 84.3 fL (80.0-100.0); Monocytes # (auto) 0.9 10 ^3/uL (0-1.3); Monocytes % (auto) 9.5 % (0.0-12.0); Neutrophils # (auto) 6.1 10 ^3/uL (1.6-8.6); Neutrophils % (auto) 65.9 % (37.0-80.0); Platelet Count (auto) 322 10^3/uL (140-450); White Blood Cell 9.2 10^3/uL (4.4-10.8)
[2024-10-15 14:58] LABS: Potassium 4.3 mmol/L (3.5-5.1); Sodium 141 mmol/L (136-145)
[2024-10-15 14:59] LABS: Anion Gap 8 (5-15); Calcium 9.9 mg/dL (8.7-10.4); Carbon Dioxide 26 mmol/L (20-31)
[2024-10-15 15:03] LABS: Chloride 107 mmol/L (98-107)
[2024-10-15 15:04] LABS: BUN/Creatinine Ratio 21.1 (10.0-20.0); Glucose 99 mg/dL (74-106)
[2024-10-15 15:05] LABS: Blood Urea Nitrogen 24 mg/dL (9-23)
[2024-10-15 15:39] VITALS: BP 139/97; PULSE 59; RESP 18; TEMP 97.9; O2SAT 99
--- NOTE | 2024-10-15 17:13 | DVHINCON2 ---
Date Seen: Oct 15, 2024 Referring Physician ER physician Reason for Consultation Shortness of breath cough and chest pain. History of Present Illness 79-year-old female with a known history of congestive heart failure, AFib currently on Eliquis, hypertension, dyslipidemia, seizure disorder initially plan with the hospital with shortness of breath and some cough. Patient was chest x-ray shows no evidence of any infiltrate. Patient was probably has viral syndrome. Patient was currently denies any chest pain shortness of breath requesting to go home. Past Medical History Hypotension, AFib, seizure disorder Past Surgical History Appendectomy, hysterectomy. Family History: Asthma G8 MOTHER, , Cause: [place] (myocardial infarction) Diabetes mellitus Hypertension Prostate carcinoma G8 FATHER Allergies: Coded Allergies: NO KNOWN ALLERGIES (Unverified , 05/12/21) Home Meds Active Scripts Senna (Senokot) 8.6 Mg Tab, 1 TAB PO BID, #40 TAB Prov:ASHVIN DOMINGUEZ MD 02/15/24 Oxycodone W/ Acetaminophen (Percocet 5/325MG) 1 Tab Tb, 1 TAB PO Q6HPRN PRN, #21 TAB Prov:ASHVIN DOMINGUEZ MD 02/15/24 Sacubitril-Valsartan (Entresto 24-26 mg) 1 Tab Tab, 1 TAB PO BID, #30 TAB Prov:MENDOZA HUNT MD 10/30/23 Empagliflozin (Jardiance) 10 Mg Tab, 10 MG PO DAILY, #30 TAB Prov:MENDOZA HUNT MD 10/30/23 Apixaban Base (ELIQUIS) 2.5 Mg Tab, 2.5 MG PO BID, #60 TAB Prov:MENDOZA HUNT MD 10/30/23 Reported Medications Gabapentin (Gabapentin) 300 Mg Cap, 1200 MG PO HS for 30 Days, MG 02/13/24 Gabapentin (Gabapentin) 300 Mg Cap, 600 MG PO DAILY for 30 Days, MG 02/13/24 Clopidogrel Bisulfate (Plavix) 75 Mg Tab, 75 MG PO DAILY, TAB 02/13/24 Aspirin (Aspir-Low) 81 Mg Tab, 81 MG PO DAILY for 30 Days, MG 02/13/24 Furosemide (Furosemide) 40 Mg Tab, 40 MG PO DAILY for 30 Days 02/13/24 Dorzolamide-Timolol (Dorzolamide Hcl/Timolol M) 1 Ml Marifer, DROP 12/13/23 Amiodarone Hcl (Amiodarone Hcl) 200 Mg Tab, 1 TAB PO DAILY 12/13/23 Brinzolamide-Brimonidine Tartr (SIMBRINZA) 1 Ml Jessica, 1 DROP RIGHTEYE BID Shake liquid 12/13/23 Latanoprost (Xalatan) 0.005 % Marifer, 1 DROP EACHEYE QPM 12/13/23 Gabapentin (Gabapentin) 300 Mg Cap, CAP PO BID Take 2 capsules (600 mg) by mouth in the morning, and take 4 capsules (1200 mg) my mouth in the evening 12/13/23 Trazodone Hcl (Trazodone Hcl) 50 Mg Tab, 1 TAB PO HS 12/13/23 Albuterol Sulfate (Albuterol Sulfate Hfa) 108 Mcg/Act Aer, 1 PUFF INH PRN for Unspecified Asthma 12/13/23 Dicyclomine Hcl (Dicyclomine Hcl) 10 Mg Cap, 1 CAP PO TID 05/14/21 Duloxetine HCl (Duloxetine HCl) 60 Mg Cap, 1 CAP PO DAILY 05/14/21 Levetiracetam (Levetiracetam) 250 Mg Tab, 250 MG PO BID 05/14/21 Montelukast Sodium (MONTELUKAST SODIUM) 10 Mg Tab, 1 TAB PO DAILY 05/14/21 Levetiracetam (Keppra) 500 Mg Tab, 250 MG PO BID, TAB 05/14/21 Dicyclomine Hcl (Dicyclomine Hcl) 20 Mg Tab, 10 MG PO TID, TAB 05/14/21 Duloxetine Hcl (Cymbalta) 60 Mg Cap, 1 CAP PO DAILY, #90 CAP 3 Refills 05/14/21 Review of Systems Twelve review of system were negative except mentioned above. Vital Signs Vital Signs Date Time Temp Pulse Resp B/P (MAP) Pulse Ox O2 Delivery O2 Flow Rate FiO2 10/15/24 15:39 97.9 59 18 139/97 (111) 99 97.9 10/15/24 15:37 Room Air* 0 21 Physical Exam HEENT pupils are reactive Neck is supple CV is S1-S2 regular rate and rhythm Respiratory bilateral clear air entry GI posterior bowel sound Extremity no edema PLEATER HAND no motor deficit Labs/Diagnostic Data Labs Test 10/15/24 15:53 10/15/24 14:29 Range/Units Troponin I High Sensitivity 20 </=34 ng/L White Blood Count 9.2 4.4-10.8 10^3/uL Red Blood Count 3.80 L 4.0-5.20 10^6/uL Hemoglobin 10.0 L 12.2-16.2 g/dL Hematocrit 32.0 L 36.0-46.0 % Mean Corpuscular Volume 84.3 80.0-100.0 fL Mean Corpuscular Hemoglobin 26.4 L 28.0-32.0 pg Mean Corpuscular Hemoglobin Concent 31.3 L 32.0-36.0 g/dL Red Cell Distribution Width 15.0 H 11.8-14.3 % Platelet Count 322 140-450 10^3/uL Mean Platelet Volume 6.6 L 6.9-10.8 fL Neutrophils (%) (Auto) 65.9 37.0-80.0 % Lymphocytes (%) (Auto) 22.1 10.0-50.0 % Monocytes (%) (Auto) 9.5 0.0-12.0 % Eosinophils (%) (Auto) 1.2 0.0-7.0 % Basophils (%) (Auto) 1.3 0.0-2.0 % Neutrophils # (Auto) 6.1 1.6-8.6 10 ^3/uL Lymphocytes # (Auto) 2.0 0.4-5.4 10 ^3/uL Monocytes # (Auto) 0.9 0-1.3 10 ^3/uL Eosinophils # (Auto) 0.1 0-0.8 10 ^3/uL Basophils # (Auto) 0.1 0-0.2 10 ^3/uL Nucleated Red Blood Cells 0.0 % Sodium Level 141 136-145 mmol/L Potassium Level 4.3 3.5-5.1 mmol/L Chloride Level 107 98-107 mmol/L Carbon Dioxide Level 26 20-31 mmol/L Anion Gap 8 5-15 Blood Urea Nitrogen 24 H 9-23 mg/dL Creatinine 1.14 H 0.550-1.02 mg/dL Glomerular Filtration Rate Calc 49 >90 mL/min BUN/Creatinine Ratio 21.1 H 10.0-20.0 Serum Glucose 99 74-106 mg/dL Calcium Level 9.9 8.7-10.4 mg/dL Assessment 79-year-old female with a known history of hypertension, congestive heart failure, AFib, seizure disorder which has been with the hospital with shortness breath and some cough. Patient was worked up. Patient troponins were negative , 12 lead EKG shows no evidence of any acute STT wave changes. Chest x-ray shows no infiltrate. Patient was currently cleared to be discharged. Choice caser up has been notified who will arrange the outpatient follow up with the PCP within a week. Patient was recommended to return to ER if symptoms return. Problems(with codes): (1) Cough (2) Viral syndrome Plan discussed with: Patient Date of Service: Oct 15, 2024 Billing Provider: MENDOZA HUNT MD Common Visit Codes: NOT BILLABLE MENDOZA HUNT MD Oct 15, 2024 17:13
== END 2024-10-15 17:58 | disposition left against medical advice (07) ==
LOC: ER 13:28
DX: B34.9 Viral infection, unspecified (principal); R05.9 Cough, unspecified; Z86.73 Personal history of transient ischemic attack (TIA), and cerebral infarction without residual deficits; Z98.890 Other specified postprocedural states; Z90.49 Acquired absence of other specified parts of digestive tract; Z90.710 Acquired absence of both cervix and uterus
CPT/HCPCS: 36415; 71046; 80048; 84484; 85025; 93005

== ENCOUNTER 2024-10-17 15:13 | Inpatient (IN) | payer OTHER ==
[~2024-10-17] VITALS: Ht 144.8 cm; Wt 71.5 kg
--- NOTE | 2024-10-17 15:46 | ED.PDOC ---
History of Present Illness HPI Comments 79-year-old female came to the ER stating that she has been having shortness a breath for the past few days. She is having increasing swelling of her bilateral lower extremity left more than the right for the past few days. She is also under the weather stating that she has been having cough congestion. She does have a history of hypertension. She does take a water pill but she thinks is for her blood pressure. She also has coronary artery disease with stent placement. Denies any other symptoms. Chief Complaint: Shortness of Breath Time Seen by MD: 15:15 Primary Care Provider: Brenton Reviewed Notes: Nurses Notes, Medications, Allergies Allergies: Coded Allergies: NO KNOWN ALLERGIES (Unverified , 05/12/21) Home Meds Active Scripts Senna (Senokot) 8.6 Mg Tab, 1 TAB PO BID, #40 TAB Prov:ASHVIN DOMINGUEZ MD 02/15/24 Oxycodone W/ Acetaminophen (Percocet 5/325MG) 1 Tab Tb, 1 TAB PO Q6HPRN PRN, #21 TAB Prov:ASHVIN DOMINGUEZ MD 02/15/24 Sacubitril-Valsartan (Entresto 24-26 mg) 1 Tab Tab, 1 TAB PO BID, #30 TAB Prov:MENDOZA HUNT MD 10/30/23 Empagliflozin (Jardiance) 10 Mg Tab, 10 MG PO DAILY, #30 TAB Prov:MENDOZA HUNT MD 10/30/23 Apixaban Base (ELIQUIS) 2.5 Mg Tab, 2.5 MG PO BID, #60 TAB Prov:MENDOZA HUNT MD 10/30/23 Reported Medications Gabapentin (Gabapentin) 300 Mg Cap, 1200 MG PO HS for 30 Days, MG 02/13/24 Gabapentin (Gabapentin) 300 Mg Cap, 600 MG PO DAILY for 30 Days, MG 02/13/24 Clopidogrel Bisulfate (Plavix) 75 Mg Tab, 75 MG PO DAILY, TAB 02/13/24 Aspirin (Aspir-Low) 81 Mg Tab, 81 MG PO DAILY for 30 Days, MG 02/13/24 Furosemide (Furosemide) 40 Mg Tab, 40 MG PO DAILY for 30 Days 02/13/24 Dorzolamide-Timolol (Dorzolamide Hcl/Timolol M) 1 Ml Marifer, DROP 12/13/23 Amiodarone Hcl (Amiodarone Hcl) 200 Mg Tab, 1 TAB PO DAILY 12/13/23 Brinzolamide-Brimonidine Tartr (SIMBRINZA) 1 Ml Jessica, 1 DROP RIGHTEYE BID Shake liquid 12/13/23 Latanoprost (Xalatan) 0.005 % Marifer, 1 DROP EACHEYE QPM 12/13/23 Gabapentin (Gabapentin) 300 Mg Cap, CAP PO BID Take 2 capsules (600 mg) by mouth in the morning, and take 4 capsules (1200 mg) my mouth in the evening 12/13/23 Trazodone Hcl (Trazodone Hcl) 50 Mg Tab, 1 TAB PO HS 12/13/23 Albuterol Sulfate (Albuterol Sulfate Hfa) 108 Mcg/Act Aer, 1 PUFF INH PRN for Unspecified Asthma 12/13/23 Dicyclomine Hcl (Dicyclomine Hcl) 10 Mg Cap, 1 CAP PO TID 05/14/21 Duloxetine HCl (Duloxetine HCl) 60 Mg Cap, 1 CAP PO DAILY 05/14/21 Levetiracetam (Levetiracetam) 250 Mg Tab, 250 MG PO BID 05/14/21 Montelukast Sodium (MONTELUKAST SODIUM) 10 Mg Tab, 1 TAB PO DAILY 05/14/21 Levetiracetam (Keppra) 500 Mg Tab, 250 MG PO BID, TAB 05/14/21 Dicyclomine Hcl (Dicyclomine Hcl) 20 Mg Tab, 10 MG PO TID, TAB 05/14/21 Duloxetine Hcl (Cymbalta) 60 Mg Cap, 1 CAP PO DAILY, #90 CAP 3 Refills 05/14/21 Information Source: Patient Mode of Arrival: Ambulatory Severity: Moderate Timing: Days Duration: Since onset Past Medical History PAST MEDICAL HISTORY: AFIB, Anemia, CHF, CKF, CVA, Kidney Stones, Seizures Surgical History: Appendectomy, Hysterectomy 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 NAIL RASPER 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: No Pertinent HEEL NAIL RASPER History Family History Family History: No family hx of DM, Family hx of Cancer, Family hx of heart [place] Social History Smoker: Non-Smoker Alcohol: Occasionally Drugs: Denies Drug Use Lives In: Home Constitutional: denies: chills, diaphoresis, fatigue, fever, malaise, sweats, weakness, others EENTM: denies: blurred vision, double vision, ear bleeding, ear discharge, ear drainage, ear pain, ear ringing, eye pain, eye redness, hearing loss, mouth pain, mouth swelling, nasal discharge, nose bleeding, nose congestion, nose pain, photophobia, tearing, throat pain, throat swelling, voice changes, others Respiratory: reports: shortness of breath; denies: cough, hemoptysis, orthopnea, SOB at rest, SOB with excertion, stridor, wheezing, others Cardiovascular: denies: chest pain, dizzy spells, diaphoresis, Dyspnea on exertion, edema, irregular heart beat, left arm pain, lightheadedness, palpitations, PND, syncope, others Gastrointestinal: denies: abdomen distended, abdominal pain, blood streaked bowels, constipated, diarrhea, dysphagia, difficulty swallowing, hematemesis, melena, nausea, poor appetite, poor fluid intake, rectal bleeding, rectal pain, vomiting, others Genitourinary: denies: abnormal vagina bleeding, burning, dyspareunia, dysuria, flank pain, frequency, hematuria, incontinence, pain, , vagina discharge, urgency, others Neurological: denies: dizziness, fainting, headache, left sided numbness, left sided weakness, numbness, paresthesia, pre-existing deficit, right sided numbne ss, right sided weakness, seizure, speech problems, tingling, tremors, weakness, others Musculoskeletal: denies: back pain, gout, joint pain, joint swelling, muscle pain, muscle stiffness, neck pain, others Integumetry: denies: bruises, change in color, change in hair/nails, dryness, laceration, lesions, lumps, rash, wounds, others Allergic/Immunocompromised: denies: Difficulty Healing, Frequent Infections, Hives, Itching, others Hematologic/Lymphatic: denies: anemia, blood clots, easy bleeding, easy bruising, swollen glands, others Endocrine: denies: excessive hunger, excessive sweating, excessive thirst, excessive urination, flushing, intolerance to cold, intolerance to heat, unexplained weight gain, unexplained weight loss, others Psychiatric: denies: anxiety, bipolar disorder, depression, hopeless, panic disorder, schizophrenia, sleepless, suicidal, others Physical Exam General Appearance: Moderate Distress HEENT: Normal ENT Inspection, Pharynx Normal, TMs Normal Neck: Full Range of Motion, Non-Tender, Normal, Normal Inspection Respiratory: Other (Coarse breath sounds) Cardiovascular: No Edema, No JVD, No Murmur, No Gallop, Normal Peripheral Pulses, Regular Rate/Rhythm Breast Exam: Deferred Gastrointestinal: No Organomegaly, Non Tender, No Pulsatile Mass, Normal Bowel Sounds, Soft Genitalia: Deferred Pelvic: Deferred Rectal: Deferred Extremities: Swelling (Bilateral lower extremity) Musculoskeletal : Apperance: Normal Neurologic: Alert, No Motor Deficits, No Sensory Deficits Cerebellar Function: NOT DONE Reflexes: NOT DONE Skin: Normal Color Peripheral Pulses: 3+ Radial (R), 3+ Radial (L) Lymphatic: No Adenopathy Was a procedure done? Was a procedure done?: No Differential Dx Considerations may include: CHF Electrolyte imbalance X-Ray, Labs, Meds, VS Vital Signs Date Time Temp Pulse Resp B/P (MAP) Pulse Ox O2 Delivery O2 Flow Rate FiO2 10/17/24 15:25 20 97 Room Air 0 10/17/24 15:25 97.3 61 20 141/31 (67) 97 10/17/24 15:13 60 Lab Test 10/17/24 16:01 10/17/24 15:54 Range/Units White Blood Count 8.1 4.4-10.8 10^3/uL Red Blood Count 3.53 L 4.0-5.20 10^6/uL Hemoglobin 9.4 L 12.2-16.2 g/dL Hematocrit 29.7 L 36.0-46.0 % Mean Corpuscular Volume 84.3 80.0-100.0 fL Mean Corpuscular Hemoglobin 26.5 L 28.0-32.0 pg Mean Corpuscular Hemoglobin Concent 31.5 L 32.0-36.0 g/dL Red Cell Distribution Width 14.8 H 11.8-14.3 % Platelet Count 288 140-450 10^3/uL Mean Platelet Volume 6.5 L 6.9-10.8 fL Neutrophils (%) (Auto) 73.4 37.0-80.0 % Lymphocytes (%) (Auto) 17.4 10.0-50.0 % Monocytes (%) (Auto) 7.0 0.0-12.0 % Eosinophils (%) (Auto) 1.7 0.0-7.0 % Basophils (%) (Auto) 0.5 0.0-2.0 % Neutrophils # (Auto) 5.9 1.6-8.6 10 ^3/uL Lymphocytes # (Auto) 1.4 0.4-5.4 10 ^3/uL Monocytes # (Auto) 0.6 0-1.3 10 ^3/uL Eosinophils # (Auto) 0.1 0-0.8 10 ^3/uL Basophils # (Auto) 0 0-0.2 10 ^3/uL Nucleated Red Blood Cells 0.2 % Sodium Level 147 #H 136-145 mmol/L Potassium Level 4.4 3.5-5.1 mmol/L Chloride Level 113 H 98-107 mmol/L Carbon Dioxide Level 27 20-31 mmol/L Anion Gap 7 5-15 Blood Urea Nitrogen 26 H 9-23 mg/dL Creatinine 1.27 H 0.550-1.02 mg/dL Glomerular Filtration Rate Calc 43 >90 mL/min BUN/Creatinine Ratio 20.5 H 10.0-20.0 Serum Glucose 93 74-106 mg/dL Calcium Level 9.5 8.7-10.4 mg/dL Troponin I High Sensitivity 16 </=34 ng/L B-Type Natriuretic Peptide 717.34 0-100 pg/mL Urine Color Colorless Yellow Urine Clarity Clear Clear Urine pH 5.0 5.0-9.0 Urine Specific [place] 1.007 1.001-1.035 Urine Protein Negative Negative Urine Ketones Negative Negative Urine Blood Negative Negative /uL Urine Nitrite Negative Negative Urine Bilirubin Negative Negative Urine Urobilinogen Normal Negative mg/dL Urine Leukocyte Esterase 1+ Negative /uL Urine RBC <1 0 - 4 /hpf Urine Microscopic WBC 2 0-5 /HPF Urine Squamous Epithelial Cells Few <5 /hpf Urine Bacteria None seen None Seen /hpf Urine Glucose Normal Normal mg/dL Patient alert. Complaining of shortness a breath. Vitals stable. Answering all questions. On examination she does have swelling of bilateral lower extremity left being greater than the right. Was given Lasix. EKG reviewed does not show any acute changes. Chest x-ray does show congestion. Explained to the patient. Continue cardiac monitoring. Time of 1ST Reevaluation: 15:44 Reevaluation 1ST: Unchanged Patient Education/Counseling: Diagnosis, Treatment, Prognosis Family Education/Counseling: No Family Present Departure 1 Departure Time of Disposition: 15:45 Impression: Primary Impression: CHF (congestive heart failure) Qualified Codes: I50.43 - Acute on chronic combined systolic (congestive) and diastolic (congestive) heart failure Additional Impressions: UTI (urinary tract infection) Qualified Codes: N30.00 - Acute cystitis without hematuria Atrial fibrillation with RVR Hypernatremia Disposition: ADMITTED INPATIENT Admit to: Med Surg Condition: Guarded Critical Care Note Critical Care Time?: Yes (45 min-critical care time only) Critical care comment: CHF Lasix Stability Stability form required: No Heart Score Heart Score: Heart Score Response (Comments) Value History Slightly Suspicious 0 EKG Normal 0 Age >65 2 Risk Factors >3 or Hx ASHD 2 Troponin Normal limit 0 Total 4 CRISTEL ESPINOSA MD Oct 17, 2024 15:46
--- NOTE | 2024-10-17 15:48 | DVH ---
CHEST RADIOGRAPH Indication: sob Technique: Single frontal view of the chest was obtained Comparison: XY CHEST PORTABLE on DOS: 02/12/24, XY CHEST XRAY 1 VIEW on DOS: 12/12/23, CHEST PORTABLE o n DOS: 05/12/21 FINDINGS: Lines and Tubes: None Lungs: No focal consolidation. Mild elevation of the right hemidiaphragm. Pleura: No effusion. No pneumothorax. Cardiomediastinal contours: Borderline cardiomegaly Bones: No acute osseous abnormality. IMPRESSION: No acute cardiopulmonary disease.
[2024-10-17 15:54] LABS: Urine Bacteria None Seen /hpf (None Seen)
[2024-10-17] MEDS ORDERED: FUROSEMIDE 40 MG/4 ML VIAL IV ONE (16:00)
[2024-10-17 16:07] LABS: Urine Blood Negative /uL (Negative); Urine Clarity Clear (Clear); Urine Color Colorless (Yellow); Urine Protein, UAD Negative (Negative); Urine Specific Gravity 1.007 (1.001-1.035); Urine Squamous Epithelial Cell FEW /hpf (<5); Urine Urobilinogen Normal (Negative); Urine WBC 2 /HPF (0-5)
[2024-10-17 16:18] LABS: Basophils # (auto) 0 10 ^3/uL (0-0.2); Basophils % (auto) 0.5 % (0.0-2.0); Eosinophils # (auto) 0.1 10 ^3/uL (0-0.8); Eosinophils % (auto) 1.7 % (0.0-7.0); Hematocrit 29.7 % (36.0-46.0); Hemoglobin 9.4 g/dL (12.2-16.2); Lymphocytes # (auto) 1.4 10 ^3/uL (0.4-5.4); Lymphocytes % (auto) 17.4 % (10.0-50.0); Mean Corpuscular Hemoglobin 26.5 pg (28.0-32.0); Mean Corpuscular Hgb Conc. 31.5 g/dL (32.0-36.0); Mean Corpuscular Volume 84.3 fL (80.0-100.0); Monocytes # (auto) 0.6 10 ^3/uL (0-1.3); Neutrophils # (auto) 5.9 10 ^3/uL (1.6-8.6); Neutrophils % (auto) 73.4 % (37.0-80.0); Nucleated Red Blood Cells % 0.2 %; Platelet Count (auto) 288 10^3/uL (140-450); Red Blood Cells 3.53 10^6/uL (4.0-5.20); Red Cell Distribution Width 14.8 % (11.8-14.3); White Blood Cell 8.1 10^3/uL (4.4-10.8)
[2024-10-17 16:32] LABS: Potassium 4.4 mmol/L (3.5-5.1)
[2024-10-17 16:33] LABS: Anion Gap 7 (5-15); Carbon Dioxide 27 mmol/L (20-31)
[2024-10-17 16:34] LABS: Calcium 9.5 mg/dL (8.7-10.4)
[2024-10-17 16:38] LABS: BUN/Creatinine Ratio 20.5 (10.0-20.0); Glucose 93 mg/dL (74-106)
[2024-10-17 16:42] LABS: Blood Urea Nitrogen 26 mg/dL (9-23); Chloride 113 mmol/L (98-107); Sodium 147 mmol/L (136-145)
[2024-10-17] MEDS: cefTRIAXone 1GM/50ML D5W 50 ML IV ONE (17:22)
--- NOTE | 2024-10-17 17:28 | DVH ---
BILATERAL LOWER EXTREMITY VENOUS DOPPLER CLINICAL HISTORY: dvt Technique: Duplex Doppler evaluation of the deep venous systems of both lower extremities from the co mmon femoral veins to the popliteal veins including color Doppler and spectral/pulsed waveform analys is was performed. COMPARISON: None FINDINGS: The right and left common femoral, superficial femoral, popliteal, posterior tibial veins and trifurc ations appear patent with normal augmentation, phasicity, compressibility and color-flow. There is a tan's cyst in the right popliteal fossa measuring 3.8 cm. IMPRESSION: 1. There is no sonographic evidence for DVT in the bilateral lower extremities. HS:Y
--- NOTE | 2024-10-17 18:14 | DVHHP2 ---
History of Present Illness Reason for Visit: shortness of breath History of Present Illness 79-year-old female came to the ER stating that she has been having shortness a breath for the past few days. She is having increasing swelling of her bilateral lower extremity left more than the right for the past few days. She is also under the weather stating that she has been having cough congestion. She does have a history of hypertension. She does take a water pill but she thinks is for her blood pressure. She also has coronary artery disease with stent placement. Denies any other symptoms. Denies any cough productive sputum. No fevers chills or sweats. No headache dizziness or lightheadedness. No recent travel. Other review of systems reviewed normal. Past Medical History AFIB, Anemia, CHF, CKF, CVA, Kidney Stones, Seizures Past Surgical History Appendectomy, Hysterectomy Smoke: No ALCOHOL: rare Lives: with Family Review of Systems Review of Systems Other review of systems reviewed normal Allergies: Coded Allergies: NO KNOWN ALLERGIES (Unverified , 05/12/21) Medications Current Medications Medications Dose Ordered Sig/Tyrone Route Start Time Stop Time Status Last Admin Dose Admin Albuterol 5 mcg Q4HP PRN IN 10/17/24 18:15 UNV Amiodarone HCl 200 mg DAILY PO 10/18/24 10:00 UNV Apixaban 2.5 mg BID PO 10/17/24 22:00 UNV Dicyclomine HCl 10 mg TID PO 10/17/24 22:00 UNV Empaglifozin 10 mg DAILY PO 10/18/24 10:00 UNV Gabapentin 300 mg BID PO 10/17/24 22:00 UNV Latanoprost 1 drop QPM EACHEYE 10/18/24 18:00 UNV Levetiracetam 250 mg BID PO 10/17/24 22:00 UNV Montelukast Sodium 10 mg DAILY PO 10/18/24 10:00 UNV Oxycodone/ Acetaminophen 1 tab Q6HPRN PRN PO 10/17/24 18:15 UNV Sennosides 8.6 mg BID PO 10/17/24 22:00 UNV Trazodone HCl 50 mg HS PO 10/17/24 22:00 UNV Patient Own Medication 1 cap DAILY PO 10/18/24 10:00 UNV Nitroglycerin 0.4 mg Q5MINP PRN SL 10/17/24 18:15 UNV Morphine Sulfate 2 mg Q30M PRN IV 10/17/24 18:15 UNV Furosemide 40 mg DAILY IV 10/18/24 10:00 UNV Exam Vital Signs Vital Signs Date Time Temp Pulse Resp B/P (MAP) Pulse Ox O2 Delivery O2 Flow Rate FiO2 10/17/24 17:20 97.7 60 17 150/66 (94) 99 97.7 10/17/24 17:20 Room Air 10/17/24 15:25 0 Exam Sitting in a wheelchair in the lobby. Alert awake oriented x3. HEENT neck supple no JVD. Heart regular rate and rhythm S1-S2. Lungs fair air movement without rales wheezes. Abdomen soft obese positive bowel sounds. Extremities 1+ edema around the ankles. Positive distal pedal pulses. Labs/Xrays Labs Test 10/17/24 17:17 10/17/24 16:01 10/17/24 15:54 Range/Units White Blood Count 8.1 4.4-10.8 10^3/uL Red Blood Count 3.53 L 4.0-5.20 10^6/uL Hemoglobin 9.4 L 12.2-16.2 g/dL Hematocrit 29.7 L 36.0-46.0 % Mean Corpuscular Volume 84.3 80.0-100.0 fL Mean Corpuscular Hemoglobin 26.5 L 28.0-32.0 pg Mean Corpuscular Hemoglobin Concent 31.5 L 32.0-36.0 g/dL Red Cell Distribution Width 14.8 H 11.8-14.3 % Platelet Count 288 140-450 10^3/uL Mean Platelet Volume 6.5 L 6.9-10.8 fL Neutrophils (%) (Auto) 73.4 37.0-80.0 % Lymphocytes (%) (Auto) 17.4 10.0-50.0 % Monocytes (%) (Auto) 7.0 0.0-12.0 % Eosinophils (%) (Auto) 1.7 0.0-7.0 % Basophils (%) (Auto) 0.5 0.0-2.0 % Neutrophils # (Auto) 5.9 1.6-8.6 10 ^3/uL Lymphocytes # (Auto) 1.4 0.4-5.4 10 ^3/uL Monocytes # (Auto) 0.6 0-1.3 10 ^3/uL Eosinophils # (Auto) 0.1 0-0.8 10 ^3/uL Basophils # (Auto) 0 0-0.2 10 ^3/uL Nucleated Red Blood Cells 0.2 % D-Dimer, Quantitative 0.49 0.0-0.49 mg/L FEU Sodium Level 147 #H 136-145 mmol/L Potassium Level 4.4 3.5-5.1 mmol/L Chloride Level 113 H 98-107 mmol/L Carbon Dioxide Level 27 20-31 mmol/L Anion Gap 7 5-15 Blood Urea Nitrogen 26 H 9-23 mg/dL Creatinine 1.27 H 0.550-1.02 mg/dL Glomerular Filtration Rate Calc 43 >90 mL/min BUN/Creatinine Ratio 20.5 H 10.0-20.0 Serum Glucose 93 74-106 mg/dL Calcium Level 9.5 8.7-10.4 mg/dL Troponin I High Sensitivity 16 </=34 ng/L B-Type Natriuretic Peptide 717.34 0-100 pg/mL Urine Color Colorless Yellow Urine Clarity Clear Clear Urine pH 5.0 5.0-9.0 Urine Specific [place] 1.007 1.001-1.035 Urine Protein Negative Negative Urine Ketones Negative Negative Urine Blood Negative Negative /uL Urine Nitrite Negative Negative Urine Bilirubin Negative Negative Urine Urobilinogen Normal Negative mg/dL Urine Leukocyte Esterase 1+ Negative /uL Urine RBC <1 0 - 4 /hpf Urine Microscopic WBC 2 0-5 /HPF Urine Squamous Epithelial Cells Few <5 /hpf Urine Bacteria None seen None Seen /hpf Urine Glucose Normal Normal mg/dL Assessment/Plan Assessment/Plan Observed overnight for mild CHF exacerbation. BNP levels elevated. D-dimer is normal. We will give her IV Lasix while in the hospital. Otherwise continue rest of her home medications supportive care and treatment. Patient counseled educated regarding oral fluid restriction at home and compliance with her diuretics. Plan discussed with: Patient, Other My Orders Orders - ASHVIN DOMINGUEZ MD Procedure Category Date Status Time Albuterol Inhaler PHA 10/17/24 Logged (Ventolin Hfa) 18:15 Amiodarone Tablet PHA 10/18/24 Logged (Cordarone Tablet) 10:00 Apixaban (Eliquis) PHA 10/17/24 Logged 22:00 Dicyclomine Capsule PHA 10/17/24 Logged (Bentyl Capsule) 22:00 Empagliflozin PHA 10/18/24 Logged (Jardiance) 10:00 Gabapentin Capsule PHA 10/17/24 Logged (Neurontin Capsule) 22:00 Latanoprost (Xalatan) PHA 10/18/24 Logged 18:00 Levetiracetam Tablet PHA 10/17/24 Logged (Keppra Tablet) 22:00 Montelukast Tablet PHA 10/18/24 Logged (Singulair Tablet) 10:00 Oxycodone W/ Acet PHA 10/17/24 Logged 5/325mg Tab (Percocet 18:15 Senna Pod Tablet PHA 10/17/24 Logged (Senokot Tablet) 22:00 Trazodone Hcl PHA 10/17/24 Logged (Desyrel) 22:00 (Nf) Duloxetine Hcl PHA 10/18/24 Logged 10:00 Admit ADMIT 10/17/24 Transmitted 18:10 Nitroglycerin [facility] 10/17/24 Logged Sublingual (Ntrostat 18:15 Morphine Sulfate [facility] 10/17/24 Logged Injection 18:15 Stat Ekg For Chest [facility] 10/17/24 In Process Pain 18:10 Notify Of Changes [facility] 10/17/24 In Process From Base 18:10 Race Relations Adviser For [facility] 10/17/24 In Process 24 Hours 18:10 Emergency Dysrhythmia [facility] 10/17/24 In Process Protocol 18:10 Rhythm Strips Once [facility] 10/17/24 In Process Every Shift 18:10 Oxygen By Nasal RT 10/17/24 Transmitted Cannula 18:10 Furosemide Injection [facility] 10/18/24 Logged (Lasix Injection) 10:00 Basic Metabolic Panel LAB 10/18/24 Verified 04:00 Pt Request For Service PT 10/17/24 Logged 18:10 Echo 2d Mode Cardiac US 10/17/24 Logged DOP 18:10 Maintain Fluid [facility] 10/17/24 In Process Restrictions 18:10 Problem List: (1) Acute renal failure (2) Generalized weakness (3) CHF (congestive heart failure) ASHVIN DOMINGUEZ MD Oct 17, 2024 18:14
[2024-10-17] MEDS ORDERED: ALBUTEROL SULF HFA 90MCG INH 200DOSE IN PRN (18:15)
[2024-10-17] MEDS ORDERED: NITROGLYCERIN 0.4 MG SL TAB SL PRN (18:15)
[2024-10-17] MEDS ORDERED: MORPHINE SULFATE INJ 2 MG/ml SYRG IV PRN (18:15)
[2024-10-17 18:47] LABS: COVID19 ANTIGEN SOFIA FIA NEGATIVE (NEGATIVE); Rapid Influenza A Negative (Negative); Rapid Influenza B Negative (Negative)
[2024-10-17 19:19] VITALS: O2SAT 98
[2024-10-17 19:59] VITALS: BP 150/66; O2SAT 98
[2024-10-18] MEDS: DICYCLOMINE HCL 10 MG CAP PO SCH (05:40)
[2024-10-18] MEDS: traZODone HCL 50 MG TAB PO SCH (05:42)
[2024-10-18] MEDS: levETIRAcetam 500 MG TAB PO SCH (05:42)
[2024-10-18] MEDS: APIXABAN 2.5 MG TAB PO SCH (05:42)
[2024-10-18] MEDS: GABAPENTIN 300 MG CAP PO SCH (05:42)
[2024-10-18] MEDS: SENNA 8.6 MG TAB PO SCH (05:43)
[2024-10-18] MEDS: OXYCODONE W/ ACETAMINOPHEN 5/325MG TABLET PO PRN (07:58)
[2024-10-18 08:02] LABS: Potassium 4.2 mmol/L (3.5-5.1); Sodium 144 mmol/L (136-145)
[2024-10-18 08:03] LABS: Anion Gap 8 (5-15); Carbon Dioxide 24 mmol/L (20-31)
[2024-10-18 08:04] LABS: Calcium 9.4 mg/dL (8.7-10.4)
[2024-10-18 08:07] LABS: Chloride 112 mmol/L (98-107)
[2024-10-18 08:08] LABS: BUN/Creatinine Ratio 17.3 (10.0-20.0); Blood Urea Nitrogen 19 mg/dL (9-23); Glucose 91 mg/dL (74-106)
[2024-10-18 10:40] VITALS: RESP 17; O2SAT 97
[2024-10-18] MEDS: EMPAGLIFLOZIN 10 MG TAB PO SCH (10:47)
[2024-10-18] MEDS: FUROSEMIDE 40 MG/4 ML VIAL IV SCH (10:47)
[2024-10-18] MEDS: AMIODARONE HCL 200 MG TAB PO SCH (10:48)
[2024-10-18] MEDS: MONTELUKAST SODIUM 10 MG TAB PO SCH (10:48)
[2024-10-18] MEDS: DULoxetine HCL 30 MG CAP PO SCH (10:48)
[2024-10-18 11:32] VITALS: PULSE 56; RESP 16; O2SAT 98
[2024-10-18] MEDS: ALBUTEROL SULF 2.5 MG/0.5ML(0.5%) NEB SOLN NEB PRN (11:32)
[2024-10-18 11:38] VITALS: PULSE 53; RESP 16; O2SAT 100
[2024-10-18] MEDS ORDERED: ALBU108A5 INH (14:28)
[2024-10-18] MEDS ORDERED: FURO40TA4 PO (14:28)
--- NOTE | 2024-10-18 14:39 | DVHDS2 ---
Discharge Summary Date of Admission Oct 17, 2024 at 18:10 Date of Discharge: Oct 18, 2024 Labs/Diagnostic Data: Laboratory Results Test 10/18/24 07:30 10/17/24 17:17 10/17/24 16:01 10/17/24 15:54 Sodium Level 144 mmol/L (136-145) Potassium Level 4.2 mmol/L (3.5-5.1) Chloride Level 112 mmol/L (98-107) Carbon Dioxide Level 24 mmol/L (20-31) Anion Gap 8 (5-15) Blood Urea Nitrogen 19 mg/dL (9-23) Creatinine 1.10 mg/dL (0.550-1.02) Glomerular Filtration Rate Calc 51 mL/min (>90) BUN/Creatinine Ratio 17.3 (10.0-20.0) Serum Glucose 91 mg/dL (74-106) Calcium Level 9.4 mg/dL (8.7-10.4) Influenza Type A Antigen Negative (Negative) Influenza Type B Antigen Negative (Negative) SARS-CoV-2 Antigen (Rapid) Negative (NEGATIVE) White Blood Count 8.1 10^3/uL (4.4-10.8) Red Blood Count 3.53 10^6/uL (4.0-5.20) Hemoglobin 9.4 g/dL (12.2-16.2) Hematocrit 29.7 % (36.0-46.0) Mean Corpuscular Volume 84.3 fL (80.0-100.0) Mean Corpuscular Hemoglobin 26.5 pg (28.0-32.0) Mean Corpuscular Hemoglobin Concent 31.5 g/dL (32.0-36.0) Red Cell Distribution Width 14.8 % (11.8-14.3) Platelet Count 288 10^3/uL (140-450) Mean Platelet Volume 6.5 fL (6.9-10.8) Neutrophils (%) (Auto) 73.4 % (37.0-80.0) Lymphocytes (%) (Auto) 17.4 % (10.0-50.0) Monocytes (%) (Auto) 7.0 % (0.0-12.0) Eosinophils (%) (Auto) 1.7 % (0.0-7.0) Basophils (%) (Auto) 0.5 % (0.0-2.0) Neutrophils # (Auto) 5.9 10 ^3/uL (1.6-8.6) Lymphocytes # (Auto) 1.4 10 ^3/uL (0.4-5.4) Monocytes # (Auto) 0.6 10 ^3/uL (0-1.3) Eosinophils # (Auto) 0.1 10 ^3/uL (0-0.8) Basophils # (Auto) 0 10 ^3/uL (0-0.2) Nucleated Red Blood Cells 0.2 % D-Dimer, Quantitative 0.49 mg/L FEU (0.0-0.49) Troponin I High Sensitivity 16 ng/L (</=34) B-Type Natriuretic Peptide 717.34 pg/mL (0-100) Urine Color Colorless (Yellow) Urine Clarity Clear (Clear) Urine pH 5.0 (5.0-9.0) Urine Specific [place] 1.007 (1.001-1.035) Urine Protein Negative (Negative) Urine Ketones Negative (Negative) Urine Blood Negative /uL (Negative) Urine Nitrite Negative (Negative) Urine Bilirubin Negative (Negative) Urine Urobilinogen Normal mg/dL (Negative) Urine Leukocyte Esterase 1+ /uL (Negative) Urine RBC <1 /hpf (0 - 4) Urine Microscopic WBC 2 /HPF (0-5) Urine Squamous Epithelial Cells Few /hpf (<5) Urine Bacteria None seen /hpf (None Seen) Urine Glucose Normal mg/dL (Normal) Other Laboratory Tests 10/18/24 07:30 10/17/24 16:01 Brief Hx & Hospital Course: 79-year-old female came to the ER stating that she has been having shortness a breath for the past few days. She is having increasing swelling of her bilateral lower extremity left more than the right for the past few days. She is also under the weather stating that she has been having cough congestion. She does have a history of hypertension. She does take a water pill but she t hinks is for her blood pressure. She also has coronary artery disease with stent placement. Denies any other symptoms. Denies any cough productive sputum. No fevers chills or sweats. No headache dizziness or lightheadedness. No recent travel. Other review of systems reviewed normal. She was evaluated and counseled regarding her heart failure. Patient is advised to increase her Lasix to twice a day. Advised to check her weights at least 3 times a week and limit her oral fluid restriction to 1200- 1500 mL per 24 hours given her heart failure. Otherwise patient is clinically stable. Therefore it is felt she could be safely discharged home. Have talked with the patient regarding her hospital diagnosis, discharge medications, discharge instructions and follow-up plan of care. She has verbalized understanding of these and agree with the care plan as I mentioned. Condition at Discharge: Stable Final Diagnosis/Problems List Congestive heart failure exacerbation Discharge Disposition: Home with Health Services Discharge Instruct/Medications Diet: Consistent carbohydrate, Cardiac 2g Na,low cholest Diet comment: Limit your total oral fluid intake in 24 hours to 1500 mL. Activity: No Restrictions, As Tolerated Follow Up/Referral: Primary care physician next week for heart failure management and Dr. Aviles a Cardiology in two weeks Medications: Increase your Lasix to 40 mg twice a day for next four days. Otherwise continue medications as per discharge med list. Changed Medications: Albuterol Sulfate (Albuterol Sulfate Hfa) 108 Mcg/Act Aer 1 PUFF INH Q4HPRN PRN, #1 AER (Changed from: PRN) Continued Medications: Amiodarone Hcl (Amiodarone Hcl) 200 Mg Tab 1 TAB PO DAILY Apixaban Base (Eliquis) 2.5 Mg Tab 2.5 MG PO BID, #60 TAB Aspirin (Aspir-Low) 81 Mg Tab 81 MG PO DAILY for 30 Days, MG Brinzolamide-Brimonidine Tartr (Simbrinza) 1 Ml Jessica 1 DROP RIGHTEYE BID Shake liquid Clopidogrel Bisulfate (Plavix) 75 Mg Tab 75 MG PO DAILY, TAB Dicyclomine Hcl (Dicyclomine Hcl) 10 Mg Cap 1 CAP PO TID Dorzolamide-Timolol (Dorzolamide Hcl/Timolol M) 1 Ml Marifer DROP Duloxetine HCl (Duloxetine HCl) 60 Mg Cap 1 CAP PO DAILY Empagliflozin (Jardiance) 10 Mg Tab 10 MG PO DAILY, #30 TAB Furosemide (Furosemide) 40 Mg Tab 40 MG PO DAILY, #30 TAB (This prescription has been renewed) Gabapentin (Gabapentin) 300 Mg Cap CAP PO BID Take 2 capsules (600 mg) by mouth in the morning, and take 4 capsules (1200 mg) my mouth in the evening Latanoprost (Xalatan) 0.005 % Marifer 1 DROP EACHEYE QPM Levetiracetam (Levetiracetam) 250 Mg Tab 250 MG PO BID Montelukast Sodium (Montelukast Sodium) 10 Mg Tab 1 TAB PO DAILY Oxycodone W/ Acetaminophen (Percocet 5/325MG) 1 Tab Tb 1 TAB PO Q6HPRN PRN, #21 TAB Sacubitril-Valsartan (Entresto 24-26 mg) 1 Tab Tab 1 TAB PO BID, #30 TAB Senna (Senokot) 8.6 Mg Tab 1 TAB PO BID, #40 TAB Trazodone Hcl (Trazodone Hcl) 50 Mg Tab 1 TAB PO HS Discontinued Medications: Dicyclomine Hcl (Dicyclomine Hcl) 20 Mg Tab 10 MG PO TID, TAB Duloxetine Hcl (Cymbalta) 60 Mg Cap 1 CAP PO DAILY, #90 CAP 3 Refills Gabapentin (Gabapentin) 300 Mg Cap 600 MG PO DAILY for 30 Days, MG Gabapentin (Gabapentin) 300 Mg Cap 1200 MG PO HS for 30 Days, MG Levetiracetam (Keppra) 500 Mg Tab 250 MG PO BID, TAB Discharge Statement: "Patient was advised to return to the ER or call 911 if any headaches, dizziness, shortness of breath, chest pain, abdominal pain, bleeding, fevers, or worsening of medical condition. Patient was counseled about treatment plan, medications, possible side effects, patientverbalized understanding. All questions were answered to the best of my ability. This discharge took greater then 30 minutes in planning, reviewing documentation, counseling the patient, and discussing with other team members." ASSESSMENT ASSESSMENT Assessment Congestive heart failure exacerbation ASHVIN DOMINGUEZ MD Oct 18, 2024 14:39
[2024-10-18 15:46] VITALS: BP 135/55; PULSE 55; RESP 17; TEMP 98.9; O2SAT 96
[2024-10-18] MEDS ORDERED: LATANOPROST 0.005 % OPTH(EYE) SOL 2.5ML EACHEYE SCH (18:00)
--- NOTE | 2024-10-19 09:35 | ECG ---
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
== END 2024-10-18 15:55 | disposition home health service (06) | DRG 291 ==
LOC: ER 15:24 → TELE 18:10 → UNDODEPER 10-18 15:16
PROVIDERS: ADMIT Hospitalist; ATTEND Hospitalist
DX: I11.0 Hypertensive heart disease with heart failure (principal); I50.33 Acute on chronic diastolic (congestive) heart failure; E87.0 Hyperosmolality and hypernatremia; N17.9 Acute kidney failure, unspecified; N30.00 Acute cystitis without hematuria; Z20.822 Contact with and (suspected) exposure to COVID-19; I25.10 Atherosclerotic heart disease of native coronary artery without angina pectoris; I48.91 Unspecified atrial fibrillation; Z95.5 Presence of coronary angioplasty implant and graft; Z90.710 Acquired absence of both cervix and uterus; Z86.73 Personal history of transient ischemic attack (TIA), and cerebral infarction without residual deficits; Z87.442 Personal history of urinary calculi
CPT/HCPCS: 36415; 71045; 80048; 81001; 83880; 84484; 85025; 85379; 87426; 87804; 93005; 93970; 94640; 96365; 99291; G0378

== ENCOUNTER 2024-11-15 16:51 | Inpatient (IN) | payer OTHER ==
[~2024-11-15] VITALS: Ht 144.8 cm; Wt 90.6 kg
--- NOTE | 2024-11-15 17:36 | DVH ---
CHEST RADIOGRAPH Indication: preop Technique: Single frontal view of the chest was obtained Comparison: XY CHEST PORTABLE on DOS: 10/17/24, XY CHEST PORTABLE on DOS: 02/12/24, XY CHEST XRAY 1 VIE W on DOS: 12/12/23 FINDINGS: Lines and Tubes: None Lungs: No focal consolidation. Pleura: No effusion. No pneumothorax. Cardiomediastinal contours: Unremarkable Bones: No acute osseous abnormality. IMPRESSION: 1. No acute cardiopulmonary disease.
--- NOTE | 2024-11-15 17:46 | ED.PDOC ---
Musculoskeletal HPI Comments 79y F who presents to the ED for chief complaint of lower extremity pain. Pt states she is on hospice and last night, at approx 3 AM pt had mechanical fall and injury. Pt noted redness and swelling to R ankle after the fall with noted bruising with noted deformity to the R ankle. Pt did not lose consciousness and states home hospice came this AM and hospice nurse had x-ray done which showed fracture and pt was told to come to the ED for further evaluation. Pt in the ED, rates the pain 10/10, with no noted symptoms. Pt otherwise denies any other symptoms at this time. Chief Complaint: Lower Extremity Time Seen by MD: 17:40 Primary Care Provider: Brenton Reviewed Notes: Nurses Notes, Medications Allergies: Coded Allergies: NO KNOWN ALLERGIES (Unverified , 05/12/21) Home Meds Active Scripts Furosemide (Furosemide) 40 Mg Tab, 40 MG PO DAILY, #30 TAB Prov:ASHVIN DOMINGUEZ MD 10/18/24 Albuterol Sulfate (Albuterol Sulfate Hfa) 108 Mcg/Act Aer, 1 PUFF INH Q4HPRN PRN, #1 AER Prov:ASHVIN DOMINGUEZ MD 10/18/24 Senna (Senokot) 8.6 Mg Tab, 1 TAB PO BID, #40 TAB Prov:ASHVIN DOMINGUEZ MD 02/15/24 Oxycodone W/ Acetaminophen (Percocet 5/325MG) 1 Tab Tb, 1 TAB PO Q6HPRN PRN, #21 TAB Prov:ASHVIN DOMINGUEZ MD 02/15/24 Sacubitril-Valsartan (Entresto 24-26 mg) 1 Tab Tab, 1 TAB PO BID, #30 TAB Prov:MENDOZA HUNT MD 10/30/23 Empagliflozin (Jardiance) 10 Mg Tab, 10 MG PO DAILY, #30 TAB Prov:MENDOZA HUNT MD 10/30/23 Apixaban Base (ELIQUIS) 2.5 Mg Tab, 2.5 MG PO BID, #60 TAB Prov:MENDOZA HUNT MD 10/30/23 Reported Medications Gabapentin (Gabapentin) 300 Mg Cap, 1200 MG PO HS for 30 Days, MG 02/13/24 Gabapentin (Gabapentin) 300 Mg Cap, 600 MG PO DAILY for 30 Days, MG 02/13/24 Clopidogrel Bisulfate (Plavix) 75 Mg Tab, 75 MG PO DAILY, TAB 02/13/24 Aspirin (Aspir-Low) 81 Mg Tab, 81 MG PO DAILY for 30 Days, MG 02/13/24 Dorzolamide-Timolol (Dorzolamide Hcl/Timolol M) 1 Ml Marifer, DROP 12/13/23 Amiodarone Hcl (Amiodarone Hcl) 200 Mg Tab, 1 TAB PO DAILY 12/13/23 Brinzolamide-Brimonidine Tartr (SIMBRINZA) 1 Ml Jessica, 1 DROP RIGHTEYE BID Shake liquid 12/13/23 Latanoprost (Xalatan) 0.005 % Marifer, 1 DROP EACHEYE QPM 12/13/23 Gabapentin (Gabapentin) 300 Mg Cap, CAP PO BID Take 2 capsules (600 mg) by mouth in the morning, and take 4 capsules (1200 mg) my mouth in the evening 12/13/23 Trazodone Hcl (Trazodone Hcl) 50 Mg Tab, 1 TAB PO HS 12/13/23 Dicyclomine Hcl (Dicyclomine Hcl) 10 Mg Cap, 1 CAP PO TID 05/14/21 Duloxetine HCl (Duloxetine HCl) 60 Mg Cap, 1 CAP PO DAILY 05/14/21 Levetiracetam (Levetiracetam) 250 Mg Tab, 250 MG PO BID 05/14/21 Montelukast Sodium (MONTELUKAST SODIUM) 10 Mg Tab, 1 TAB PO DAILY 05/14/21 Levetiracetam (Keppra) 500 Mg Tab, 250 MG PO BID, TAB 05/14/21 Dicyclomine Hcl (Dicyclomine Hcl) 20 Mg Tab, 10 MG PO TID, TAB 05/14/21 Duloxetine Hcl (Cymbalta) 60 Mg Cap, 1 CAP PO DAILY, #90 CAP 3 Refills 05/14/21 Information Source: Patient, Relative Mode of Arrival: Wheelchair Brought in by: pt son Location: Right Extremity Location: Ankle Timing: Hours Prehospital treatment: None Severity: Moderate Able to Move Extremity: Yes Bear Weight: No Pain: Moderate Mechanism: Spontaneous Circumstances: Fall Onset of Symptoms: Spontaneous, After Trauma Symptoms: Swelling, Pain DVT Risk Factors: Immobilization Last Tetanus: Unknown Associated signs and symptoms: Ankle pain Past Medical History PAST MEDICAL HISTORY: AFIB, Anemia, CHF, CKF, CVA, Kidney Stones, Seizures Surgical History: Appendectomy, Hysterectomy, PTCA Surgical History (Other): heart valve repair, neck fracture COOKER SYRUP History: No Pertinent COOKER SYRUP History Family History Family History: No family hx of DM, Family hx of Cancer, Family hx of heart more[place] Social History Smoker: Non-Smoker Alcohol: Occasionally Drugs: Denies Drug Use Lives In: Home Constitutional: denies: chills, diaphoresis, fatigue, fever, malaise, sweats, weakness, others EENTM: denies: blurred vision, double vision, ear bleeding, ear discharge, ear drainage, ear pain, ear ringing, eye pain, eye redness, hearing loss, mouth pain, mouth swelling, nasal discharge, nose bleeding, nose congestion, nose pain, photophobia, tearing, throat pain, throat swelling, voice changes, others Respiratory: denies: cough, hemoptysis, orthopnea, SOB at rest, shortness of breath, SOB with excertion, stridor, wheezing, others Cardiovascular: denies: chest pain, dizzy spells, diaphoresis, Dyspnea on exertion, edema, irregular heart beat, left arm pain, lightheadedness, palpitations, PND, syncope, others Gastrointestinal: denies: abdomen distended, abdominal pain, blood streaked bowels, constipated, diarrhea, dysphagia, difficulty swallowing, hematemesis, melena, nausea, poor appetite, poor fluid intake, rectal bleeding, rectal pain, vomiting, others Genitourinary: denies: abnormal vagina bleeding, burning, dyspareunia, dysuria, flank pain, frequency, hematuria, incontinence, pain, , vagina discharge, urgency, others Neurological: denies: dizziness, fainting, headache, left sided numbness, left sided weakness, numbness, paresthesia, pre-existing deficit, right sided numbness, right sided weakness, seizure, speech problems, tingling, tremors, weakness, others Musculoskeletal: reports: joint swelling (R ankle); denies: back pain, gout, joint pain, muscle pain, muscle stiffness, neck pain, others Integumetry: denies: bruises, change in color, change in hair/nails, dryness, laceration, lesions, lumps, rash, wounds, others Allergic/Immunocompromised: denies: Difficulty Healing, Frequent Infections, Hives, Itching, others Hematologic/Lymphatic: denies: anemia, blood clots, easy bleeding, easy bruising, swollen glands, others Endocrine: denies: excessive hunger, excessive sweating, excessive thirst, excessive urination, flushing, intolerance to cold, intolerance to heat, unexplained weight gain, unexplained weight loss, others Psychiatric: denies: anxiety, bipolar disorder, depression, hopeless, panic disorder, schizophrenia, sleepless, suicidal, others All Other Systems: Reviewed and Negative Physical Exam General Appearance: Moderate Distress HEENT: Normal ENT Inspection, Pharynx Normal, TMs Normal Neck: Full Range of Motion, Non-Tender, Normal, Normal Inspection Respiratory: Chest Non-Tender, Lungs Clear, No Accessory Muscle Use, No Respiratory Distress, Normal Breath Sounds Cardiovascular: No Edema, No JVD, No Murmur, No Gallop, Normal Peripheral Pulses, Regular Rate/Rhythm Breast Exam: Deferred Gastrointestinal: No Organomegaly, Non Tender, No Pulsatile Mass, Normal Bowel Sounds, Soft Genitalia: Deferred Pelvic: Deferred Rectal: Deferred Extremities: No calf tenderness, Normal capillary refill, No pedal edema Musculoskeletal : Location: Right Extremity Location: Ankle Apperance: Deformity, Limited ROM, Tenderness: Severe Neurologic: Alert, furniture reproducer II-XII nml as Tested, No Motor Deficits, Normal Affect, Normal Mood, No Sensory Deficits Cerebellar Function: Normal Reflexes: Normal Skin: Dry, Normal Color, Warm Lymphatic: No Adenopathy Was a procedure done? Was a procedure done?: No Differential Diagnosis EXT Differential Diagnosis: Fracture, Sprain, Dislocation, Contusion, Strain X-Ray, Labs, Meds, VS Vital Signs Date Time Temp Pulse Resp B/P (MAP) Pulse Ox O2 Delivery O2 Flow Rate FiO2 11/15/24 18:28 98.9 65 19 124/49 (74) 95 98.9 11/15/24 18:28 65 18 95 Room Air* 0 21 11/15/24 18:13 65 18 124/49 11/15/24 17:15 98.3 65 18 133/34 (67) 96 Lab Test 11/15/24 17:39 Range/Units White Blood Count 9.8 4.4-10.8 10^3/uL Red Blood Count 3.28 L 4.0-5.20 10^6/uL Hemoglobin 8.6 L 12.2-16.2 g/dL Hematocrit 26.0 L 36.0-46.0 % Mean Corpuscular Volume 79.3 L 80.0-100.0 fL Mean Corpuscular Hemoglobin 26.1 L 28.0-32.0 pg Mean Corpuscular Hemoglobin Concent 32.9 32.0-36.0 g/dL Red Cell Distribution Width 15.9 H 11.8-14.3 % Platelet Count 299 140-450 10^3/uL Mean Platelet Volume 6.3 L 6.9-10.8 fL Neutrophils (%) (Auto) 78.8 37.0-80.0 % Lymphocytes (%) (Auto) 12.0 10.0-50.0 % Monocytes (%) (Auto) 8.4 0.0-12.0 % Eosinophils (%) (Auto) 0.4 0.0-7.0 % Basophils (%) (Auto) 0.4 0.0-2.0 % Neutrophils # (Auto) 7.7 1.6-8.6 10 ^3/uL Lymphocytes # (Auto) 1.2 0.4-5.4 10 ^3/uL Monocytes # (Auto) 0.8 0-1.3 10 ^3/uL Eosinophils # (Auto) 0 0-0.8 10 ^3/uL Basophils # (Auto) 0 0-0.2 10 ^3/uL Nucleated Red Blood Cells 0.0 % Prothrombin Time 13.3 H 9.3-11.8 sec Prothrombin Time INR 1.29 H 0.9-1.15 Activated Partial Thromboplast Time 32.6 24.5-34.5 SEC Sodium Level 140 136-145 mmol/L Potassium Level 3.6 3.5-5.1 mmol/L Chloride Level 103 98-107 mmol/L Carbon Dioxide Level 27 20-31 mmol/L Anion Gap 10 5-15 Blood Urea Nitrogen 30 H 9-23 mg/dL Creatinine 1.28 H 0.550-1.02 mg/dL Glomerular Filtration Rate Calc 43 >90 mL/min BUN/Creatinine Ratio 23.4 H 10.0-20.0 Serum Glucose 106 74-106 mg/dL Calcium Level 9.8 8.7-10.4 mg/dL Current Medications Medications (Trade) Dose Ordered Sig/Tyrone Route Start Time Stop Time Status Last Admin Ondansetron HCl (Zofran) 4 mg ONCE ONCE IV 11/15/24 17:15 11/15/24 17:16 DC 11/15/24 18:13 Morphine Sulfate 4 mg ONCE ONCE IV 11/15/24 17:15 11/15/24 17:16 DC 11/15/24 18:13 CHEST RADIOGRAPH IMPRESSION: 1. No acute cardiopulmonary disease. TECHNIQUE: 3 radiographic views of the right were obtained. FINDINGS/IMPRESSION: Minimally displaced distal fibular and medial tibial fracture is noted. There is widening of the anterior joint space with posterior subluxation of the foot and fracture in the posterior tibia. The alignment is anatomical. There is no radiopaque foreign body. IV Hep-Lock was established The patient was given morphine 4 mg IV push for the pain The patient was given Zofran 4 mg IV push for the nausea The CBC shows anemia with a hemoglobin of 8.6 and hematocrit of 26 The INR is 1.29 The chemistry panel shows a BUN of 30 and a creatinine of 1.28 At this time, the patient was being admitted Orthopedic surgery consult is being obtained Images Reviewed?: Images reviewed and evaluated by me Time of 1ST Reevaluation: 18:10 Reevaluation 1ST: Unchanged Patient Education/Counseling: Diagnosis, Treatment, Prognosis Family Education/Counseling: Diagnosis, Treatment, Prognosis Departure 1 Departure Time of Disposition: 20:10 Impression: Primary Impression: Closed right ankle fracture Qualified Codes: S82.891A - Other fracture of right lower leg, initial encounter for closed fracture Disposition: ADMITTED INPATIENT Admit to: Med Surg Condition: Fair Critical Care Note Critical Care Time?: No Stability Stability form required: Yes Unstable for transfer: ED Physician Assesment (Clinical assesment) Heart Score Heart Score: Heart Score Response (Comments) Value History N/A 0 EKG N/A 0 Age N/A 0 Risk Factors N/A 0 Troponin N/A 0 Total 0 I personally scribed for LV ACUNA MD (CYN) on 11/15/24 at 17:46. Electronically submitted by Neal RIVERA). I personally scribed for LV ACUNA MD (CYN) on 11/15/24 at 18:55. Electronically submitted by Neal RIVERA). LV ACUNA MD Nov 15, 2024 17:46
--- NOTE | 2024-11-15 17:48 | DVH ---
CLINICAL INDICATION: trauma TECHNIQUE: 3 radiographic views of the right were obtained. Comparison: XY L ANKLE 3 VIEW on DOS: 02/12/24 FINDINGS/IMPRESSION: Minimally displaced distal fibular and medial tibial fracture is noted. There is widening of the anterior joint space with posterior subluxation of the foot and fracture in the posterior tibia. The alignment is anatomical. There is no radiopaque foreign body.
[2024-11-15 17:58] LABS: Basophils # (auto) 0 10 ^3/uL (0-0.2); Lymphocytes # (auto) 1.2 10 ^3/uL (0.4-5.4); Monocytes # (auto) 0.8 10 ^3/uL (0-1.3); Neutrophils # (auto) 7.7 10 ^3/uL (1.6-8.6); Neutrophils % (auto) 78.8 % (37.0-80.0); Red Cell Distribution Width 15.9 % (11.8-14.3); White Blood Cell 9.8 10^3/uL (4.4-10.8)
[2024-11-15 18:00] LABS: Basophils % (auto) 0.4 % (0.0-2.0); Eosinophils # (auto) 0 10 ^3/uL (0-0.8); Eosinophils % (auto) 0.4 % (0.0-7.0); Hemoglobin 8.6 g/dL (12.2-16.2); Mean Corpuscular Hemoglobin 26.1 pg (28.0-32.0); Mean Corpuscular Hgb Conc. 32.9 g/dL (32.0-36.0); Mean Corpuscular Volume 79.3 fL (80.0-100.0); Monocytes % (auto) 8.4 % (0.0-12.0); Platelet Count (auto) 299 10^3/uL (140-450); Red Blood Cells 3.28 10^6/uL (4.0-5.20)
[2024-11-15 18:04] LABS: Chloride 103 mmol/L (98-107); Potassium 3.6 mmol/L (3.5-5.1); Sodium 140 mmol/L (136-145)
[2024-11-15 18:05] LABS: Anion Gap 10 (5-15); Calcium 9.8 mg/dL (8.7-10.4); Carbon Dioxide 27 mmol/L (20-31)
[2024-11-15 18:10] LABS: BUN/Creatinine Ratio 23.4 (10.0-20.0); Blood Urea Nitrogen 30 mg/dL (9-23); Glucose 106 mg/dL (74-106); INR 1.29 (0.9-1.15); Partial Thromboplastin Time 32.6 SEC (24.5-34.5); Prothrombin Time 13.3 sec (9.3-11.8)
[2024-11-15] MEDS: MORPHINE SULFATE 4 MG/ML SYR/VIAL IV ONE (18:13)
[2024-11-15] MEDS: ONDANSETRON HCL 4 MG/2 ML VIAL IV ONE (18:13)
[2024-11-15 18:28] VITALS: PULSE 65; RESP 18; O2SAT 95
[2024-11-16] VITALS (7 sets, daily range): BP systolic 121–129; BP diastolic 42–49; PULSE 63–75; RESP 15–22; TEMP 97.9–99.1; O2SAT 85–100
[2024-11-16] MEDS: ONDANSETRON HCL 4 MG/2 ML VIAL IV ONE (02:14)
[2024-11-16] MEDS: MORPHINE SULFATE 4 MG/ML SYR/VIAL IV ONE (02:15)
[2024-11-16] MEDS ORDERED: ONDANSETRON HCL 4 MG/2 ML VIAL IV PRN (04:00)
[2024-11-16] MEDS ORDERED: DOCUSATE SOD 100 MG CAP PO PRN (04:00)
[2024-11-16] MEDS ORDERED: ACETAMINOPHEN 325 MG TAB PO PRN (04:00)
[2024-11-16] MEDS ORDERED: MORPHINE SULFATE INJ 2 MG/ml SYRG IV PRN ×2 (04:30→10:30)
[2024-11-16] MEDS ORDERED: NITROGLYCERIN 0.4 MG SL TAB SL PRN (04:30)
--- NOTE | 2024-11-16 04:32 | DVHHP2 ---
History of Present Illness Reason for Visit: Closed right ankle fracture History of Present Illness The patient is a 79-year-old female with multiple past medical history including AFib, anemia, CVA, and seizures who presented to [facility] ED for evaluation of right ankle severe pain. Patient reports she does not know why she is on hospice, noted redness, bruises, swelling, and deformity of her right ankle after a fall at home. Patient was seen and evaluated in the ED, laboratory data shows WBC 9.8, hemoglobin 8.6, hematocrit 26.0, platelets 299, sodium 140, potassium 3.6, BUN 30, creatinine 1.28, GFR 43, glucose 106, blood pressure 146/69, heart rate 68, temperature 98.9 F, O2 saturation 94% on oxygen. Right ankle x-ray since revealing minimally displaced distal fibula and medial tibial fracture; there is widening of the anterior joint space with posterior subluxation of the foot and fracture in the posterior tibia. Patient was given IV morphine 4 mg x 1, please see medication orders section in the computer. On my assessment, patient denies chest pain, no headache, no dizziness, no loss of consciousness, no abdominal pain, no nausea, no vomiting, no fever, no chills. Patient was admitted for further evaluation and medical management. Past Medical History AFIB, Anemia, CHF, CKF, CVA, Kidney Stones, Seizures Past Surgical History Appendectomy, Hysterectomy, PTCA, Heart valve repair, Neck fracture Family History Reviewed, noncontributory to the management of this case. Past Social History The patient lives at home, denies smoking, alcohol or illicit drugs abuse. Review of Systems Constitutional: No: Fever, Chills, Sweats, Weakness, Malaise, Other Eyes: No: Pain, Vision change, Conjunctivae inflammation, Eyelid inflammation, Other, Redness ENT: No: Ear pain, Ear discharge, Nose pain, Nose discharge, Nose congestion, Mouth pain, Mouth swelling, Throat pain, Throat swelling, Other Respiratory: Shortness of breath; No: Cough, Dry, SOB with excertion, Wheezing, Hemoptysis, Pleuritic Pain, Sputum, Wheezing, Other Cardiovascular: No: Chest Pain, Palpitations, Orthopnea, Paroxysmal Noc. Dyspnea, Edema, Lt Headedness, Other Gastrointestinal: No: Nausea, Vomiting, Abdominal Pain, Diarrhea, Constipation, Melena, Hematochezia, Other Genitourinary: No Dysuria, No Frequency, No Incontinence, No Hematuria, No Retention, No Other Musculoskeletal: other (Joint swelling, R ankle); No: neck pain, shoulder pain, arm pain, back pain, hand pain, leg pain, foot pain Skin: No: Rash, Lesions, Jaundice, Bruising, Other Neurological: No: Weakness, Numbness, Incoordination, Change in speech, Confusion, Seizures, Other Allergies: Coded Allergies: NO KNOWN ALLERGIES (Unverified , 05/12/21) Medications Current Medications Medications Dose Ordered Sig/Tyrone Route Start Time Stop Time Status Last Admin Dose Admin Levetiracetam 100 ml @ 400 mls/hr BID IV 11/16/24 10:00 Carvedilol 6.25 mg Q12HR PO 11/16/24 10:00 Furosemide 20 mg DAILY IV 11/16/24 10:00 Apixaban 2.5 mg BID PO 11/16/24 10:00 Sodium Chloride 10 ml Q8HR IV 11/16/24 06:00 Acetaminophen/ Hydrocodone Bitart 1 tab Q4HP PRN PO 11/16/24 04:00 Ondansetron HCl 4 mg Q4HP PRN IV 11/16/24 04:00 Docusate Sodium 100 mg BIDPRN PRN PO 11/16/24 04:00 Acetaminophen 650 mg Q6HP PRN PO 11/16/24 04:00 Morphine Sulfate 2 mg Q4HPRN PRN IV 11/16/24 04:00 Exam Vital Signs Vital Signs Date Time Temp Pulse Resp B/P (MAP) Pulse Ox O2 Delivery O2 Flow Rate FiO2 11/16/24 02:45 69 14 146/67 11/16/24 02:02 98.9 92 98.9 11/15/24 23:21 Room Air* 0 21 General Appearance: Alert, Oriented X3, Cooperative, No acute distress HEENT: Atraumatic, PERRLA, EOMI, Mucous membr. moist/pink Respiratory: Clear to auscultation, Normal air movement Cardiovascular: Regular rate, Normal S1, Normal S2, No murmurs Abdominal: Normal bowel sounds, Soft, No tenderness, No hepatospenomegaly, No masses Extremities: No clubbing, No cyanosis, No edema, Normal pulses, Other (Right ankle tenderness) Skin: No rashes, No breakdown, No significant lesion Neuro: Normal gait, Normal speech, Normal tone, Sensation intact, Cranial nerves 3-12 NL, Reflexes 2+, Other (Unsteady gait) Psych/Mental Status: Mental status NL, Mood NL Labs/Xrays Labs Test 11/15/24 17:39 Range/Units White Blood Count 9.8 4.4-10.8 10^3/uL Red Blood Count 3.28 L 4.0-5.20 10^6/uL Hemoglobin 8.6 L 12.2-16.2 g/dL Hematocrit 26.0 L 36.0-46.0 % Mean Corpuscular Volume 79.3 L 80.0-100.0 fL Mean Corpuscular Hemoglobin 26.1 L 28.0-32.0 pg Mean Corpuscular Hemoglobin Concent 32.9 32.0-36.0 g/dL Red Cell Distribution Width 15.9 H 11.8-14.3 % Platelet Count 299 140-450 10^3/uL Mean Platelet Volume 6.3 L 6.9-10.8 fL Neutrophils (%) (Auto) 78.8 37.0-80.0 % Lymphocytes (%) (Auto) 12.0 10.0-50.0 % Monocytes (%) (Auto) 8.4 0.0-12.0 % Eosinophils (%) (Auto) 0.4 0.0-7.0 % Basophils (%) (Auto) 0.4 0.0-2.0 % Neutrophils # (Auto) 7.7 1.6-8.6 10 ^3/uL Lymphocytes # (Auto) 1.2 0.4-5.4 10 ^3/uL Monocytes # (Auto) 0.8 0-1.3 10 ^3/uL Eosinophils # (Auto) 0 0-0.8 10 ^3/uL Basophils # (Auto) 0 0-0.2 10 ^3/uL Nucleated Red Blood Cells 0.0 % Prothrombin Time 13.3 H 9.3-11.8 sec Prothrombin Time INR 1.29 H 0.9-1.15 Activated Partial Thromboplast Time 32.6 24.5-34.5 SEC Sodium Level 140 136-145 mmol/L Potassium Level 3.6 3.5-5.1 mmol/L Chloride Level 103 98-107 mmol/L Carbon Dioxide Level 27 20-31 mmol/L Anion Gap 10 5-15 Blood Urea Nitrogen 30 H 9-23 mg/dL Creatinine 1.28 H 0.550-1.02 mg/dL Glomerular Filtration Rate Calc 43 >90 mL/min BUN/Creatinine Ratio 23.4 H 10.0-20.0 Serum Glucose 106 74-106 mg/dL Calcium Level 9.8 8.7-10.4 mg/dL PATIENT: DELFINO MARTEL SACCT: [id number] UNIT: [id number] : 1945 LOC: ER ROOM / BED: / AGE / SEX: 79 / F ADM STATUS: REG ER SERVICE 1710 ORDERING PHYSICIAN: LV ACUNA MD PROCEDURE(s): RANKL - R ANKLE 3 VIEW REASON: trauma ORDER NUMBER(s): [id number], ACCESSION NUMBER(s): [id number] CLINICAL INDICATION: trauma TECHNIQUE: 3 radiographic views of the right were obtained. Comparison: XY L ANKLE 3 VIEW on DOS: 02/12/24 FINDINGS/IMPRESSION: Minimally displaced distal fibular and medial tibial fracture is noted. There is widening of the anterior joint space with posterior subluxation of the foot and fracture in the posterior tibia. The alignment is anatomical. There is no radiopaque foreign body. ORDERING PHYSICIAN: LV ACUNA MD PROCEDURE(s): CXRP - CHEST PORTABLE REASON: preop ORDER NUMBER(s): [id number], ACCESSION NUMBER(s): [id number] CHEST RADIOGRAPH Indication: preop Technique: Single frontal view of the chest was obtained Comparison: XY CHEST PORTABLE on DOS: 10/17/24, XY CHEST PORTABLE on DOS: 02/12/24, XY CHEST XRAY 1 VIEW on DOS: 12/12/23 FINDINGS: Lines and Tubes: None Lungs: No focal consolidation. Pleura: No effusion. No pneumothorax. Cardiomediastinal contours: Unremarkable Bones: No acute osseous abnormality. IMPRESSION: 1. No acute cardiopulmonary disease. Assessment/Plan Assessment/Plan Closed right ankle fracture Right ankle pain Generalized weakness Other fracture of right lower leg, initial encounter for closed fracture Plan 1. Admit to med surge unit 2. Breathing treatment 3. Pain control management 4. Management of fluids and electrolytes 5. Consultation for orthopedic/hospitalist 6. Diagnostic tests right ankle x-ray 7. DVT prophylaxis-on Eliquis 8. Repeat labs CBC, CMP in a.m. 9. Continue with current medical management 10. Treatment plan discussed with patient and RN. Patient verbalized understanding. Plan discussed with: Patient, Other (RN) My Orders Orders - ANANYA ESPARZA DNP Procedure Category Date Status Time Complete Blood Count LAB 11/16/24 Logged 04:00 Comprehensive LAB 11/16/24 Logged Metabolic Panel 04:00 Levetiracetam 500 PHA 11/16/24 In Process Mg/100ml (Levetiraceta 10:00 Carvedilol Tablet PHA 11/16/24 In Process (Coreg Tablet) 10:00 Furosemide Injection PHA 11/16/24 In Process (Lasix Injection) 10:00 Type And Screen BBK 11/16/24 Logged 03:56 Apixaban (Eliquis) PHA 11/16/24 In Process 10:00 Allergies ALEC 11/16/24 In Process 03:56 Code Status CODE 11/16/24 Transmitted 03:56 Sodium Chloride Lock PHA 11/16/24 In Process (Saline Lock Ns) 06:00 Oxygen Per Hour RT 11/16/24 Transmitted 03:56 Hydrocodone-Acet PHA 11/16/24 In Process 5/325mg Tab ([place] 04:00 Ondansetron Hcl PHA 11/16/24 In Process (Zofran) 04:00 Docusate Sodium PHA 11/16/24 In Process Capsule (Colace 04:00 Fall Risk Precautions ALEC 11/16/[address] 03:56 Complete Blood Count LAB 11/17/24 Verified 04:00 Comprehensive LAB 11/17/24 Verified Metabolic Panel 04:00 Cardiac DIET 11/16/24 Transmitted Diet-2gna,Lofat,Lochol Breakfast Condition: Serious ALEC 11/16/24 In Process 03:56 Acetaminophen Tablet PHA 11/16/24 In Process (Tylenol Tablet) 04:00 Morphine Sulfate PHA 11/16/24 In Process Injection 04:00 Sequential ALEC 11/16/24 In Process Compression Device Problem List: (1) Closed right ankle fracture (2) Right ankle pain (3) Generalized weakness (4) Other fracture of right lower leg, initial encounter for closed fracture Date of Service: Nov 16, 2024 Billing Provider: ANANYA ESPARZA DNP Common Visit Codes: [id number] INP/OBS CARE (HIGH) ANANYA ESPARZA DNP Nov 16, 2024 04:32
[2024-11-16] MEDS: HYDROcodone-ACET 5/325MG TAB PO PRN (05:16)
[2024-11-16 05:18] LABS: Eosinophils # (auto) 0 10 ^3/uL (0-0.8); Eosinophils % (auto) 0.4 % (0.0-7.0)
[2024-11-16 05:21] LABS: Basophils # (auto) 0 10 ^3/uL (0-0.2); Basophils % (auto) 0.3 % (0.0-2.0); Hematocrit 28.2 % (36.0-46.0); Lymphocytes # (auto) 0.7 10 ^3/uL (0.4-5.4); Mean Corpuscular Hemoglobin 25.9 pg (28.0-32.0); Mean Corpuscular Hgb Conc. 31.7 g/dL (32.0-36.0); Mean Corpuscular Volume 81.7 fL (80.0-100.0); Monocytes % (auto) 10.8 % (0.0-12.0); Neutrophils # (auto) 7.7 10 ^3/uL (1.6-8.6); Neutrophils % (auto) 81.5 % (37.0-80.0); Platelet Count (auto) 325 10^3/uL (140-450); Red Blood Cells 3.45 10^6/uL (4.0-5.20); Red Cell Distribution Width 16.1 % (11.8-14.3); White Blood Cell 9.4 10^3/uL (4.4-10.8)
[2024-11-16 05:45] LABS: Alanine Aminotransferase 37 U/L (7-40); Albumin 4.7 g/dL (3.2-4.8); Alkaline Phosphatase 82 U/L (46-116); Anion Gap 9 (5-15); Aspartate Aminotransferase 40 U/L (13-40); Calcium 9.8 mg/dL (8.7-10.4); Carbon Dioxide 28 mmol/L (20-31); Chloride 104 mmol/L (98-107); Glucose 101 mg/dL (74-106); Potassium 3.7 mmol/L (3.5-5.1); Sodium 141 mmol/L (136-145)
[2024-11-16 05:46] LABS: Bilirubin, Total 0.6 mg/dL (0.2-1.0); Total Protein 6.9 g/dL (5.7-8.2)
[2024-11-16 06:02] LABS: BUN/Creatinine Ratio 22.9 (10.0-20.0)
[2024-11-16 06:04] LABS: Blood Urea Nitrogen 25 mg/dL (9-23)
[2024-11-16] MEDS: SODIUM CHLOR 0.9% PF (SALINE LOCK) 10ML VIAL/SYR IV SCH (06:59)
[2024-11-16] MEDS ORDERED: MEPERIDINE HCL (50 MG/ML) 1 ML VIAL ONE (09:59)
[2024-11-16] MEDS ORDERED: fentaNYL CITRATE 100 MCG/2 ML VL ONE (09:59)
[2024-11-16] MEDS ORDERED: KETAMINE 50mg/ML 10ml Vial 10 ML ONE (09:59)
[2024-11-16] MEDS ORDERED: LIDOCAINE 1% INJ PF 5ML AMP ONE (10:00)
[2024-11-16] MEDS ORDERED: ROCURONIUM 10MG/ML 10ML VIAL IV ONE (10:00)
[2024-11-16] MEDS ORDERED: APIXABAN 2.5 MG TAB PO SCH (10:00)
[2024-11-16] MEDS ORDERED: PROPOFOL 10 MG/ML 20 ML IV ONE (10:00)
[2024-11-16] MEDS ORDERED: LIDOCAINE HCL 2% TOP JELLY 5ML TOP ONE (10:00)
[2024-11-16] MEDS ORDERED: MIDAZOLAM HCL 2MG/2ML 2ml VIAL (1mg/ml) ONE (10:00)
[2024-11-16] MEDS ORDERED: SODIUM CHLORIDE LOCK 10 ML ONE (10:00)
[2024-11-16] MEDS ORDERED: ONDANSETRON HCL 4 MG/2 ML VIAL ONE (10:00)
--- NOTE | 2024-11-16 10:18 | DVHINCON2 ---
Date of service: Nov 16, 2024 Reason for Consultation Right ankle trimalleolar fracture/dislocation History of Present Illness 79 yo F s/p mechanical fall and twisted her right ankle. She states injury happened 2 days ago. Has been unable to bear weight on right side since that time. Hospice nurse sent patient into ER for her injury. She ambulates with walker at baseline but has been using wheelchair currently. Past Medical History PAST MEDICAL HISTORY: AFIB, Anemia, CHF, CKF, CVA, Kidney Stones, Seizures Surgical History: Appendectomy, Hysterectomy, PTCA Surgical History (Other): heart valve repair, neck fracture DOUGH CATCHER History: No Pertinent DOUGH CATCHER History Family History: Asthma G8 MOTHER, , Cause: ND (myocardial infarction) Diabetes mellitus Hypertension Prostate carcinoma G8 FATHER Allergies: Coded Allergies: NO KNOWN ALLERGIES (Unverified , 05/12/21) Home Meds Active Scripts Furosemide (Furosemide) 40 Mg Tab, 40 MG PO DAILY, #30 TAB Prov:ASHVIN DOMINGUEZ MD 10/18/24 Albuterol Sulfate (Albuterol Sulfate Hfa) 108 Mcg/Act Aer, 1 PUFF INH Q4HPRN PRN, #1 AER Prov:ASHVIN DOMINGUEZ MD 10/18/24 Senna (Senokot) 8.6 Mg Tab, 1 TAB PO BID, #40 TAB Prov:ASHVIN DOMINGUEZ MD 02/15/24 Oxycodone W/ Acetaminophen (Percocet 5/325MG) 1 Tab Tb, 1 TAB PO Q6HPRN PRN, #21 TAB Prov:ASHVIN DOMINGUEZ MD 02/15/24 Sacubitril-Valsartan (Entresto 24-26 mg) 1 Tab Tab, 1 TAB PO BID, #30 TAB Prov:MENDOZA HUNT MD 10/30/23 Empagliflozin (Jardiance) 10 Mg Tab, 10 MG PO DAILY, #30 TAB Prov:MENDOZA HUNT MD 10/30/23 Apixaban Base (ELIQUIS) 2.5 Mg Tab, 2.5 MG PO BID, #60 TAB Prov:MENDOZA HUNT MD 10/30/23 Reported Medications Gabapentin (Gabapentin) 300 Mg Cap, 1200 MG PO HS for 30 Days, MG 02/13/24 Gabapentin (Gabapentin) 300 Mg Cap, 600 MG PO DAILY for 30 Days, MG 02/13/24 Clopidogrel Bisulfate (Plavix) 75 Mg Tab, 75 MG PO DAILY, TAB 02/13/24 Aspirin (Aspir-Low) 81 Mg Tab, 81 MG PO DAILY for 30 Days, MG 02/13/24 Dorzolamide-Timolol (Dorzolamide Hcl/Timolol M) 1 Ml Marifer, DROP 12/13/23 Amiodarone Hcl (Amiodarone Hcl) 200 Mg Tab, 1 TAB PO DAILY 12/13/23 Brinzolamide-Brimonidine Tartr (SIMBRINZA) 1 Ml Jessica, 1 DROP RIGHTEYE BID Shake liquid 12/13/23 Latanoprost (Xalatan) 0.005 % Marifer, 1 DROP EACHEYE QPM 12/13/23 Gabapentin (Gabapentin) 300 Mg Cap, CAP PO BID Take 2 capsules (600 mg) by mouth in the morning, and take 4 capsules (1200 mg) my mouth in the evening 12/13/23 Trazodone Hcl (Trazodone Hcl) 50 Mg Tab, 1 TAB PO HS 12/13/23 Dicyclomine Hcl (Dicyclomine Hcl) 10 Mg Cap, 1 CAP PO TID 05/14/21 Duloxetine HCl (Duloxetine HCl) 60 Mg Cap, 1 CAP PO DAILY 05/14/21 Levetiracetam (Levetiracetam) 250 Mg Tab, 250 MG PO BID 05/14/21 Montelukast Sodium (MONTELUKAST SODIUM) 10 Mg Tab, 1 TAB PO DAILY 05/14/21 Levetiracetam (Keppra) 500 Mg Tab, 250 MG PO BID, TAB 05/14/21 Dicyclomine Hcl (Dicyclomine Hcl) 20 Mg Tab, 10 MG PO TID, TAB 05/14/21 Duloxetine Hcl (Cymbalta) 60 Mg Cap, 1 CAP PO DAILY, #90 CAP 3 Refills 05/14/21 Current Medications Current Medications Medications (Trade) Dose Ordered Sig/Tyrone Route PRN Reason Start Time Stop Time Status Last Admin Levetiracetam 100 ml @ 400 mls/hr BID IV 11/16/24 10:00 Carvedilol (Coreg Tablet) 6.25 mg Q12HR PO 11/16/24 10:00 Furosemide (Lasix Injection) 20 mg DAILY IV 11/16/24 10:00 Apixaban (Eliquis) 2.5 mg BID PO 11/16/24 10:00 Sodium Chloride (Saline Lock Ns) 10 ml Q8HR IV 11/16/24 06:00 11/16/24 06:59 Acetaminophen/ Hydrocodone Bitart ([place] 5/325MG Tab) 1 tab Q4HP PRN PO MODERATE PAIN (4-6 PAIN SCALE) 11/16/24 04:00 11/16/24 05:16 Ondansetron HCl (Zofran) 4 mg Q4HP PRN IV NAUSEA / VOMITING 11/16/24 04:00 Docusate Sodium (Colace Capsule) 100 mg BIDPRN PRN PO FOR CONSTIPATION 11/16/24 04:00 Acetaminophen (Tylenol Tablet) 650 mg Q6HP PRN PO PAIN SCALE 1-3 OR TEMP>100.4 11/16/24 04:00 Morphine Sulfate 2 mg Q4HPRN PRN IV SEVERE PAIN (7-10 PAIN SCALE) 11/16/24 04:00 Nitroglycerin (Ntrostat Sublingual) 0.4 mg Q5MINP PRN SL FOR CHEST PAIN 11/16/24 04:30 Morphine Sulfate 2 mg Q30M PRN IV FOR CHEST PAIN 11/16/24 04:30 Review of Systems 10 point ROS neg except per HPI Vital Signs Vital Signs Date Time Temp Pulse Resp B/P (MAP) Pulse Ox O2 Delivery O2 Flow Rate FiO2 11/16/24 08:00 59 11/16/24 06:56 19 133/46 (75) 97 11/16/24 05:25 Nasal Cannula* 2 28 11/16/24 05:02 98.2 98.2 Physical Exam NAD RLE: +swelling/ +ehl/fhl foot wwp Labs/Diagnostic Data Labs Test 11/16/24 04:53 11/15/24 17:39 Range/Units White Blood Count 9.4 4.4-10.8 10^3/uL Red Blood Count 3.45 L 4.0-5.20 10^6/uL Hemoglobin 9.0 L 12.2-16.2 g/dL Hematocrit 28.2 L 36.0-46.0 % Mean Corpuscular Volume 81.7 80.0-100.0 fL Mean Corpuscular Hemoglobin 25.9 L 28.0-32.0 pg Mean Corpuscular Hemoglobin Concent 31.7 L 32.0-36.0 g/dL Red Cell Distribution Width 16.1 H 11.8-14.3 % Platelet Count 325 140-450 10^3/uL Mean Platelet Volume 6.5 L 6.9-10.8 fL Neutrophils (%) (Auto) 81.5 H 37.0-80.0 % Lymphocytes (%) (Auto) 7.0 L 10.0-50.0 % Monocytes (%) (Auto) 10.8 0.0-12.0 % Eosinophils (%) (Auto) 0.4 0.0-7.0 % Basophils (%) (Auto) 0.3 0.0-2.0 % Neutrophils # (Auto) 7.7 1.6-8.6 10 ^3/uL Lymphocytes # (Auto) 0.7 0.4-5.4 10 ^3/uL Monocytes # (Auto) 1.0 0-1.3 10 ^3/uL Eosinophils # (Auto) 0 0-0.8 10 ^3/uL Basophils # (Auto) 0 0-0.2 10 ^3/uL Nucleated Red Blood Cells 0.0 % Sodium Level 141 136-145 mmol/L Potassium Level 3.7 3.5-5.1 mmol/L Chloride Level 104 98-107 mmol/L Carbon Dioxide Level 28 20-31 mmol/L Anion Gap 9 5-15 Blood Urea Nitrogen 25 H 9-23 mg/dL Creatinine 1.09 H 0.550-1.02 mg/dL Glomerular Filtration Rate Calc 52 >90 mL/min BUN/Creatinine Ratio 22.9 H 10.0-20.0 Serum Glucose 101 74-106 mg/dL Calcium Level 9.8 8.7-10.4 mg/dL Total Bilirubin 0.6 0.2-1.0 mg/dL Aspartate Amino Transferase (AST) 40 13-40 U/L Alanine Aminotransferase (ALT) 37 7-40 U/L Alkaline Phosphatase 82 46-116 U/L Total Protein 6.9 5.7-8.2 g/dL Albumin 4.7 3.2-4.8 g/dL Prothrombin Time 13.3 H 9.3-11.8 sec Prothrombin Time INR 1.29 H 0.9-1.15 Activated Partial Thromboplast Time 32.6 24.5-34.5 SEC Plan/Recommendation sp fall with Righttrimalleolar ankle fracture/dislocation 1. A long with your discussion was held with patient and family regarding her condition. Nonoperative operative management discussed in depth. Risk benefits optional terms were reviewed. Risks include but not exclusive to bleeding infection nerve injury chronic pain nonunion malunion need for further surgery likely discrepancy blood clots cardiac and pulmonary complications amputation and . Patient and family understands the risks. 2. Plan for open reduction internal fixation of Right ankle fracture With Dr. Harrington 3. N.p.o./IV fluids 4. Pain control Plan discussed with: Patient LEODAN HARRINGTON MD Nov 16, 2024 10:18
--- NOTE | 2024-11-16 10:29 | DVHOP2 ---
Operative Report - 2 Report Details Date: 11/16/24 Preop Diagnosis: Right trimalleolar ankle fracture/dislocation Postop Diagnosis: Right trimalleolar ankle fracture/dislocation Surgeon: Eric Harrington MD Clerk Supervisor: Tk MEAD Anesthesiologist: Anesthesia: General Implant: Arthrex Consent: The patient was informed of the risks and benefits of the procedure. These include but are not limited to complications of anesthesia, postoperative infection, incomplete relief of symptoms, recurrence of symptoms, damage to blood vessels, nerves and tendons, deep venous thrombosis, pulmonary embolism and possible need for repeat surgery in the future. Name of Procedure Performed Open reduction internal fixation of right ankle fracture, intraop fluoro Procedure Details Procedure Details: HISTORY OF PRESENT ILLNESS: Risks/benefits/options and alternatives were d iscussed in length. Risks associated with anesthesia, infection, damage to nerves and blood vessels, and bleeding or blood clots. Problems after ankle fracture surgery include ankle joint stiffness, weakness, need for further surgery and arthritis. Possible complications after ankle fracture surgery include infection and problems with healing. PROCEDURE: After all potential complications and risks as well as risks and benefits of the above-mentioned procedure was discussed at length with the patient and family, informed consent was obtained. The lower extremity was then confirmed with the operating surgeon, the patient, the nursing staff and Department of Anesthesia. The patient was then transferred to preoperative area in the Operative Suite and placed on the operating room table in supine position. At this time, the anesthesia was performed. All bony prominences were well padded at this time. A nonsterile tourniquet was placed on the right upper thigh of the patient. This was then removed and the right lower extremity was sterilely prepped and draped in the usual sterile fashion. The right lower extremity was then elevated and exsanguinated using Esmarch and tourniquet was then placed to 250 mmHg. Next, after all bony and soft tissue landmarks were identified, a 6 cm longitudinal incision was made directly over the lateral mal fracture on the right ankle. A sharp dissection was carefully taken down to the level of bone taking care to protect the neurovascular structures. Once the bone was reached, the fractured site was identified. The bony ends were then opened and divided of all hematoma as well as excess periosteum within the fracture site. For her lateral side,she had a posterior comminution with a distal transverse fracture. With manual traction and manipulation with bone reduction clamps we were able to reduce patient fracture. Intraoperative fluoroscopy confirmed reduction. A Fibula plate was then selected for instrumentation with nonlocking/locking through the plate to reduce posterior butterfly fragment. Next Fluoroscopy was used to visualize the hardware placement as well as the fracture reduction appeared to be in good anatomic position, all hardware was in good position. T . Again, the dissection was carefully taken down the level of the fracture site. Again, Fluoro scan was brought in to confirm placement of the screws. Patient noted to have syndesmotic widening so under fluoro a syndesmotic screw was placed. They were in good overall position and there was no lateralization of the joint. At this time, each wound was copiously irrigated and suctioned dry. The wounds were then closed using #2-0 Vicryl suture in sub cutaneous fashion followed by 3-0 nylon on the skin. A sterile dressing was applied consistent with Adaptic, 4x4s, Kerlix, and Webril. An ankle splint was then placed on the right lower extremity. The patient was transferred back to the [facility] and to the Postanesthetic Care Unit. The patient tolerated the procedure well. There were no complications. Postoperative Plan: 1. Strictly Non-weight bearing Right LE 2. Pain control - [place] 3. Strict elevation x 2 weeks 4. Crutches 5. Healing time for this ankle fracture is about 3-6 months. Typically NWB for 6 weeks followed by Partial WB 6. Follow up in my office in 2 weeks Condition Good Disposition Still a Patient ERIC HARRINGTON MD Nov 16, 2024 10:29
[2024-11-16] MEDS ORDERED: MORPHINE SULFATE 4 MG/ML SYR/VIAL IV PRN (10:30)
[2024-11-16] MEDS ORDERED: HYDROmorphone HCL 2 MG/ML VL/or syr IV PRN ×2 (10:30)
--- NOTE | 2024-11-16 12:20 | DVH ---
C-ARM FLUOROSCOPY: PROCEDURE: ringh ankle orif FLUOROSCOPY TIME: 47.4 sec DAP: 0.67 mgy FINDINGS: Spot intraoperative C arm radiographs demonstrating right ankle orif. IMPRESSION: Please refer to surgical report for detailed findings.
[2024-11-16] MEDS: ACETAMINOPHEN IV 1000 MG/100ML (10MG/ML) IV ONE (13:14)
[2024-11-16] MEDS: ALBUTEROL SULF 2.5 MG/0.5ML(0.5%) NEB SOLN NEB ONE (13:15)
[2024-11-16] MEDS ORDERED: ceFAZolin 1GM/50ML 50 ML IV SCH (14:00)
[2024-11-16] MEDS: MORPHINE SULFATE INJ 2 MG/ml SYRG IV PRN (17:23)
[2024-11-16] MEDS: CARVEDILOL 3.125 MG TAB PO SCH (21:44)
[2024-11-16] MEDS: levETIRAcetam 500 mg/100ml 100 ML IV SCH (22:24)
[2024-11-16] MEDS: CEFEPIME 1GM/ 50ML 50 ML IV SCH (22:51)
[2024-11-17] VITALS (9 sets, daily range): BP systolic 101–124; BP diastolic 31–46; PULSE 47–69; RESP 15–17; TEMP 97.7–98.4; O2SAT 81–95
[2024-11-17 06:45] LABS: Basophils # (auto) 0 10 ^3/uL (0-0.2); Basophils % (auto) 0.3 % (0.0-2.0); Eosinophils # (auto) 0 10 ^3/uL (0-0.8); Hematocrit 29.2 % (36.0-46.0); Hemoglobin 8.9 g/dL (12.2-16.2); Lymphocytes # (auto) 0.7 10 ^3/uL (0.4-5.4); Lymphocytes % (auto) 5.8 % (10.0-50.0); Mean Corpuscular Hemoglobin 25.2 pg (28.0-32.0); Mean Corpuscular Hgb Conc. 30.6 g/dL (32.0-36.0); Mean Corpuscular Volume 82.6 fL (80.0-100.0); Monocytes # (auto) 1.6 10 ^3/uL (0-1.3); Neutrophils # (auto) 10.1 10 ^3/uL (1.6-8.6); Neutrophils % (auto) 80.9 % (37.0-80.0); Nucleated Red Blood Cells % 0.2 %; Platelet Count (auto) 297 10^3/uL (140-450); Red Blood Cells 3.54 10^6/uL (4.0-5.20); White Blood Cell 12.5 10^3/uL (4.4-10.8)
[2024-11-17 07:08] LABS: Albumin 4.4 g/dL (3.2-4.8); Alkaline Phosphatase 104 U/L (46-116); Anion Gap 11 (5-15); BUN/Creatinine Ratio 17.6 (10.0-20.0); Bilirubin, Total 0.8 mg/dL (0.2-1.0); Calcium 9.5 mg/dL (8.7-10.4); Carbon Dioxide 25 mmol/L (20-31); Total Protein 6.4 g/dL (5.7-8.2)
[2024-11-17 07:22] LABS: Alanine Aminotransferase 387 U/L (7-40); Aspartate Aminotransferase 524 U/L (13-40); Blood Urea Nitrogen 31 mg/dL (9-23); Chloride 104 mmol/L (98-107); Glucose 131 mg/dL (74-106); Potassium 4.4 mmol/L (3.5-5.1); Sodium 140 mmol/L (136-145)
[2024-11-17] MEDS: BUPIVACAINE 0.25% INJ 50ML VIAL ONE (07:54)
[2024-11-17] MEDS: ALBUTEROL SULF 2.5 MG/0.5ML(0.5%) NEB SOLN ONE (07:54)
[2024-11-17] MEDS: ceFAZolin 2 GM/D5W100ml 100 ML IV ONE (07:55)
[2024-11-17] MEDS: FUROSEMIDE 20 MG/2 ML VIAL IV SCH (09:23)
[2024-11-17] MEDS: ENOXAPARIN SOD 40 MG/0.4 ML SYRINGE SC SCH (09:24)
[2024-11-17] MEDS: CEFEPIME 1GM/ 50ML 50 ML IV SCH (23:14)
[2024-11-17] MEDS: METOCLOPRAMIDE HCL 5MG/ml INJ 2ml VIAL IV ONE (23:22)
[2024-11-18] VITALS (7 sets, daily range): BP systolic 108–138; BP diastolic 42–56; PULSE 51–63; RESP 17–19; TEMP 97.8–98.4; O2SAT 94–99
[2024-11-18 05:54] LABS: Basophils # (auto) 0.1 10 ^3/uL (0-0.2); Eosinophils # (auto) 0.1 10 ^3/uL (0-0.8); Hemoglobin 8.2 g/dL (12.2-16.2); Mean Corpuscular Hemoglobin 25.4 pg (28.0-32.0); White Blood Cell 9.7 10^3/uL (4.4-10.8)
[2024-11-18 05:57] LABS: Basophils % (auto) 0.5 % (0.0-2.0); Eosinophils % (auto) 1.4 % (0.0-7.0); Hematocrit 26.5 % (36.0-46.0); Lymphocytes # (auto) 1.2 10 ^3/uL (0.4-5.4); Lymphocytes % (auto) 12.1 % (10.0-50.0); Mean Corpuscular Hgb Conc. 30.8 g/dL (32.0-36.0); Mean Corpuscular Volume 82.6 fL (80.0-100.0); Monocytes # (auto) 0.8 10 ^3/uL (0-1.3); Neutrophils # (auto) 7.6 10 ^3/uL (1.6-8.6); Nucleated Red Blood Cells % 0.2 %; Platelet Count (auto) 238 10^3/uL (140-450); Red Blood Cells 3.21 10^6/uL (4.0-5.20); Red Cell Distribution Width 15.8 % (11.8-14.3)
[2024-11-18 06:00] LABS: Chloride 105 mmol/L (98-107); Sodium 142 mmol/L (136-145)
[2024-11-18 06:01] LABS: Anion Gap 10 (5-15); Calcium 9.6 mg/dL (8.7-10.4); Carbon Dioxide 27 mmol/L (20-31)
[2024-11-18 06:06] LABS: BUN/Creatinine Ratio 24.4 (10.0-20.0); Glucose 96 mg/dL (74-106)
[2024-11-18 06:07] LABS: Blood Urea Nitrogen 44 mg/dL (9-23)
[2024-11-18] MEDS: ENOXAPARIN SOD 40 MG/0.4 ML SYRINGE SC ONE (10:30)
--- NOTE | 2024-11-18 10:33 | DVHPN2 ---
Subjective late entry- for11/17/24 ankle pain is better/no other complaints Changes from previous H/P or p: No Changes Eyes: No Pain, No Vision change, No Conjunctivae inflammation, No Eyelid inflammation, No Other, No Redness ENT: No Ear pain, No Ear discharge, No Nose pain, No Nose discharge, No Nose congestion, No Mouth pain, No Mouth swelling, No Throat pain, No Throat swelling, No Other Cardiovascular: No Chest Pain, No Palpitations, No Orthopnea, No Paroxysmal Noc. Dyspnea, No Edema, No Lt Headedness, No Other Respiratory: No Cough, No Dry; Shortness of breath; No SOB with excertion, No Wheezing, No Hemoptysis, No Pleuritic Pain, No Sputum, No Other Gastrointestinal: No Nausea, No Vomiting, No Abdominal Pain, No Diarrhea, No Constipation, No Melena, No Hematochezia, No Other Genitourinary: No Dysuria, No Frequency, No Incontinence, No Hematuria, No Retention, No Other Musculoskeletal: other (Joint swelling, R ankle); No neck pain, No shoulder pain, No arm pain, No back pain, No hand pain, No leg pain, No foot pain Skin: No Rash, No Lesions, No Jaundice, No Bruising, No Other Objective Vitals Vital Signs Date Time Temp Pulse Resp B/P (MAP) Pulse Ox O2 Delivery O2 Flow Rate FiO2 11/18/24 09:25 55 113/39 11/18/24 09:09 98.2 17 99 98.2 11/18/24 08:10 Nasal Cannula* 2 28 Intake/Output Intake and Output 11/18/24 07:00 Intake Total 944 ml Balance 944 ml Intake Oral 694 ml IV Total 250 ml # Voids 5 General Appearance: Alert, Oriented X3, Cooperative, No acute distress Cardiovascular: Regular rate, Normal S1, Normal S2 Abdomen: Normal bowel sounds, Soft, No tenderness, No hepatospenomegaly Neuro: Normal gait, Normal speech, Strength at 5/5 X4 ext, Normal tone, Cranial nerves 3-12 NL Psych/Mental Status: Mental status NL, Mood NL Medications Current Medications Medications Dose Ordered Sig/Tyrone Route Start Time Stop Time Status Last Admin Dose Admin Levetiracetam 100 ml @ 400 mls/hr BID IV 11/16/24 10:00 11/18/24 09:28 400 MLS/HR Carvedilol 6.25 mg Q12HR PO 11/16/24 10:00 11/16/24 21:44 6.25 MG Sodium Chloride 10 ml Q8HR IV 11/16/24 06:00 11/18/24 06:01 10 ML Acetaminophen/ Hydrocodone Bitart 1 tab Q4HP PRN PO 11/16/24 04:00 11/18/24 06:38 1 TAB Docusate Sodium 100 mg BIDPRN PRN PO 11/16/24 04:00 Acetaminophen 650 mg Q6HP PRN PO 11/16/24 04:00 Enoxaparin Sodium 40 mg DAILY SC 11/17/24 10:00 11/18/24 09:25 40 MG Cefepime HCl 50 ml @ 12.5 mls/hr Q24H IV 11/17/24 23:00 11/17/24 23:14 12.5 MLS/HR Laboratory Results Laboratory Tests 11/18/24 05:24 Chemistry Test 11/18/24 05:24 Calcium Level 9.6 mg/dL (8.7-10.4) Labs and/or images reviewed: Labs reviewed by me, Image(s) reviewed by me Assessment/Plan Assessment/Plan s/p orif rt ankle dvt prophylaxis atrial fibrillation stable h/o cva per records stable anemia- sec to ckd stable secondary hyper parathyroidism stable case operator consult for help with placement Plan discussed with: Patient, Other Date of Service: Nov 17, 2024 Billing Provider: TIMOTHY PARRA MD Common Visit Codes: [id number] INP/OBS CARE(MOD) TIMOTHY PARRA MD Nov 18, 2024 10:33
--- NOTE | 2024-11-18 10:43 | DVHPN2 ---
Subjective no complaints Changes from previous H/P or p: No Changes Eyes: No Pain, No Vision change, No Conjunctivae inflammation, No Eyelid inflammation, No Other, No Redness ENT: No Ear pain, No Ear discharge, No Nose pain, No Nose discharge, No Nose congestion, No Mouth pain, No Mouth swelling, No Throat pain, No Throat swelling, No Other Cardiovascular: No Chest Pain, No Palpitations, No Orthopnea, No Paroxysmal Noc. Dyspnea, No Edema, No Lt Headedness, No Other Respiratory: No Cough, No Dry; Shortness of breath; No SOB with excertion, No Wheezing, No Hemoptysis, No Pleuritic Pain, No Sputum, No Other Gastrointestinal: No Nausea, No Vomiting, No Abdominal Pain, No Diarrhea, No Constipation, No Melena, No Hematochezia, No Other Genitourinary: No Dysuria, No Frequency, No Incontinence, No Hematuria, No Retention, No Other Musculoskeletal: other (Joint swelling, R ankle); No neck pain, No shoulder pain, No arm pain, No back pain, No hand pain, No leg pain, No foot pain Skin: No Rash, No Lesions, No Jaundice, No Bruising, No Other Objective Vitals Vital Signs Date Time Temp Pulse Resp B/P (MAP) Pulse Ox O2 Delivery O2 Flow Rate FiO2 11/18/24 09:25 55 113/39 11/18/24 09:09 98.2 17 99 98.2 11/18/24 08:10 Nasal Cannula* 2 28 Intake/Output Intake and Output 11/18/24 07:00 Intake Total 944 ml Balance 944 ml Intake Oral 694 ml IV Total 250 ml # Voids 5 General Appearance: Alert, Oriented X3, Cooperative, No acute distress Cardiovascular: Regular rate, Normal S1, Normal S2 Abdomen: Normal bowel sounds, Soft, No tenderness, No hepatospenomegaly Neuro: Normal gait, Normal speech, Strength at 5/5 X4 ext, Normal tone, Cranial nerves 3-12 NL Psych/Mental Status: Mental status NL, Mood NL Medications Current Medications Medications Dose Ordered Sig/Tyrone Route Start Time Stop Time Status Last Admin Dose Admin Levetiracetam 100 ml @ 400 mls/hr BID IV 11/16/24 10:00 11/18/24 09:28 400 MLS/HR Carvedilol 6.25 mg Q12HR PO 11/16/24 10:00 11/16/24 21:44 6.25 MG Sodium Chloride 10 ml Q8HR IV 11/16/24 06:00 11/18/24 06:01 10 ML Acetaminophen/ Hydrocodone Bitart 1 tab Q4HP PRN PO 11/16/24 04:00 11/18/24 06:38 1 TAB Docusate Sodium 100 mg BIDPRN PRN PO 11/16/24 04:00 Acetaminophen 650 mg Q6HP PRN PO 11/16/24 04:00 Enoxaparin Sodium 40 mg DAILY SC 11/17/24 10:00 11/18/24 09:25 40 MG Cefepime HCl 50 ml @ 12.5 mls/hr Q24H IV 11/17/24 23:00 11/17/24 23:14 12.5 MLS/HR Laboratory Results Laboratory Tests 11/18/24 05:24 Chemistry Test 11/18/24 05:24 Calcium Level 9.6 mg/dL (8.7-10.4) Labs and/or images reviewed: Labs reviewed by me, Image(s) reviewed by me Assessment/Plan Assessment/Plan s/p orif rt ankle dvt prophylaxis atrial fibrillation stable/on eliquisa t home/clarified with kidney status dose will be decreased to 2.5 mg bid h/o cva per records stable/clarified with pt no focal deficit affected vision in her rt eye anemia- sec to ckd stable secondary hyper parathyroidism stable casework manager consult for help with placement constipation treat physical therapy- no wt bearing rt leg Plan discussed with: Patient, Other Date of Service: Nov 18, 2024 Billing Provider: TIMOTHY PARRA MD Common Visit Codes: [id number] INP/OBS CARE(MOD) TIMOTHY PARRA MD Nov 18, 2024 10:43
--- NOTE | 2024-11-18 12:07 | DVHINCON2 ---
Date of service: Nov 18, [address] Black Reason for Consultation Acute kidney injury History of Present Illness Patient is a 79-year-old obese female with past medical history significant for AFIB, Anemia, CHF, CKD, CVA, Kidney Stones, Seizures who was admitted for right foot and ankle pain. On admission patient found to have elevated BUN creatinine nephrology is consulted for acute kidney injury Past Medical History PAST MEDICAL HISTORY: AFIB, Anemia, CHF, CKF, CVA, Kidney Stones, Seizures e Past Surgical History Surgical History: Appendectomy, Hysterectomy, PTCA Surgical History (Other): heart valve repair, neck fracture, right ankle fracture Allergies: Coded Allergies: NO KNOWN ALLERGIES (Unverified , 05/12/21) Home Meds Active Scripts Furosemide (Furosemide) 40 Mg Tab, 40 MG PO DAILY, #30 TAB Prov:ASHVIN DOMINGUEZ MD 10/18/24 Albuterol Sulfate (Albuterol Sulfate Hfa) 108 Mcg/Act Aer, 1 PUFF INH Q4HPRN PRN, #1 AER Prov:ASHVIN DOMINGUEZ MD 10/18/24 Senna (Senokot) 8.6 Mg Tab, 1 TAB PO BID, #40 TAB Prov:ASHVIN DOMINGUEZ MD 02/15/24 Apixaban Base (ELIQUIS) 2.5 Mg Tab, 2.5 MG PO BID, #60 TAB Prov:MENDOZA HUNT MD 10/30/23 Reported Medications Gabapentin (Gabapentin) 300 Mg Cap, 600 MG PO DAILY for 30 Days, MG 02/13/24 Dorzolamide-Timolol (Dorzolamide Hcl/Timolol M) 1 Ml Marifer, DROP 12/13/23 Amiodarone Hcl (Amiodarone Hcl) 200 Mg Tab, 1 TAB PO DAILY 12/13/23 Brinzolamide-Brimonidine Tartr (SIMBRINZA) 1 Ml Jessica, 1 DROP RIGHTEYE BID Shake liquid 12/13/23 Latanoprost (Xalatan) 0.005 % Marifer, 1 DROP EACHEYE QPM 12/13/23 Gabapentin (Gabapentin) 300 Mg Cap, CAP PO BID Take 2 capsules (600 mg) by mouth in the morning, and take 4 capsules (1200 mg) my mouth in the evening 12/13/23 Trazodone Hcl (Trazodone Hcl) 50 Mg Tab, 1 TAB PO HS 12/13/23 Levetiracetam (Levetiracetam) 250 Mg Tab, 250 MG PO BID 05/14/21 Montelukast Sodium (MONTELUKAST SODIUM) 10 Mg Tab, 1 TAB PO DAILY 05/14/21 Levetiracetam (Keppra) 500 Mg Tab, 250 MG PO BID, TAB 05/14/21 Discontinued Reported Medications Gabapentin (Gabapentin) 300 Mg Cap, 1200 MG PO HS for 30 Days, MG 02/13/24 Clopidogrel Bisulfate (Plavix) 75 Mg Tab, 75 MG PO DAILY, TAB 02/13/24 Aspirin (Aspir-Low) 81 Mg Tab, 81 MG PO DAILY for 30 Days, MG 02/13/24 Dicyclomine Hcl (Dicyclomine Hcl) 10 Mg Cap, 1 CAP PO TID 05/14/21 Duloxetine HCl (Duloxetine HCl) 60 Mg Cap, 1 CAP PO DAILY 05/14/21 Dicyclomine Hcl (Dicyclomine Hcl) 20 Mg Tab, 10 MG PO TID, TAB 05/14/21 Duloxetine Hcl (Cymbalta) 60 Mg Cap, 1 CAP PO DAILY, #90 CAP 3 Refills 05/14/21 Discontinued Scripts Oxycodone W/ Acetaminophen (Percocet 5/325MG) 1 Tab Tb, 1 TAB PO Q6HPRN PRN, #21 TAB Prov:ASHVIN DOMINGUEZ MD 02/15/24 Sacubitril-Valsartan (Entresto 24-26 mg) 1 Tab Tab, 1 TAB PO BID, #30 TAB Prov:MENDOZA HUNT MD 10/30/23 Empagliflozin (Jardiance) 10 Mg Tab, 10 MG PO DAILY, #30 TAB Prov:MENDOZA HUNT MD 10/30/23 Current Medications Current Medications Medications (Trade) Dose Ordered Sig/Tyrone Route PRN Reason Start Time Stop Time Status Last Admin Cefepime HCl 50 ml @ 12.5 mls/hr Q24H IV 11/17/24 23:00 11/17/24 23:14 Gabapentin (Neurontin Capsule) 300 mg TID PO 11/18/24 14:00 UNV Enoxaparin Sodium (Lovenox) 40 mg DAILY SC 11/19/24 10:00 UNV Levetiracetam (Keppra Tablet) 500 mg BID PO 11/18/24 22:00 UNV Family History: Asthma G8 MOTHER, , Cause: [place] (myocardial infarction) Diabetes mellitus Hypertension Prostate carcinoma G8 FATHER Review of Systems All 12 item review of systems reviewed with the patient nonsignificant except what is mentioned in the history of present illness H&P Exam Vital Signs/I&O Vital Sign Date Time Temp Pulse Resp B/P (MAP) Pulse Ox O2 Delivery O2 Flow Rate FiO2 11/18/24 09:25 55 113/39 11/18/24 09:09 98.2 17 99 98.2 11/18/24 08:10 Nasal Cannula* 2 28 Intake and Output 11/17/24 11/18/24 19:00 07:00 Intake Total 460 ml 484 ml Balance 460 ml 484 ml Intake Oral 360 ml 334 ml IV Total 100 ml 150 ml # Voids 3 2 Physical Exam Patient is awake alert Lungs clear to auscultation bilaterally Cardiac exam regular rate and rhythm GI obese nontender normal Extremity left ankle splint No edema Neuro nonfocal Labs/Diagnostic Data Labs/Diagnostic Data Laboratory Tests Test 11/18/24 05:24 11/17/24 05:42 11/16/24 04:53 11/15/24 17:39 Range/Units White Blood Count 9.7 12.5 #H 9.4 9.8 4.4-10.8 10^3/uL Red Blood Count 3.21 L 3.54 L 3.45 L 3.28 L 4.0-5.20 10^6/uL Hemoglobin 8.2 L 8.9 L 9.0 L 8.6 L 12.2-16.2 g/dL Hematocrit 26.5 L 29.2 L 28.2 L 26.0 L 36.0-46.0 % Mean Corpuscular Volume 82.6 82.6 81.7 79.3 L 80.0-100.0 fL Mean Corpuscular Hemoglobin 25.4 L 25.2 L 25.9 L 26.1 L 28.0-32.0 pg Mean Corpuscular Hemoglobin Concent 30.8 L 30.6 L 31.7 L 32.9 32.0-36.0 g/dL Red Cell Distribution Width 15.8 H 16.0 H 16.1 H 15.9 H 11.8-14.3 % Platelet Count 238 297 325 299 140-450 10^3/uL Mean Platelet Volume 6.8 L 7.0 6.5 L 6.3 L 6.9-10.8 fL Neutrophils (%) (Auto) 78.0 80.9 H 81.5 H 78.8 37.0-80.0 % Lymphocytes (%) (Auto) 12.1 5.8 L 7.0 L 12.0 10.0-50.0 % Monocytes (%) (Auto) 8.0 13.0 H 10.8 8.4 0.0-12.0 % Eosinophils (%) (Auto) 1.4 0.0 0.4 0.4 0.0-7.0 % Basophils (%) (Auto) 0.5 0.3 0.3 0.4 0.0-2.0 % Neutrophils # (Auto) 7.6 10.1 H 7.7 7.7 1.6-8.6 10 ^3/uL Lymphocytes # (Auto) 1.2 0.7 0.7 1.2 0.4-5.4 10 ^3/uL Monocytes # (Auto) 0.8 1.6 H 1.0 0.8 0-1.3 10 ^3/uL Eosinophils # (Auto) 0.1 0 0 0 0-0.8 10 ^3/uL Basophils # (Auto) 0.1 0 0 0 0-0.2 10 ^3/uL Nucleated Red Blood Cells 0.2 0.2 0.0 0.0 % Sodium Level 142 140 141 140 136-145 mmol/L Potassium Level 4.0 4.4 3.7 3.6 3.5-5.1 mmol/L Chloride Level 105 104 104 103 98-107 mmol/L Carbon Dioxide Level 27 25 28 27 20-31 mmol/L Anion Gap 10 11 9 10 5-15 Blood Urea Nitrogen 44 #H 31 H 25 H 30 H 9-23 mg/dL Creatinine 1.80 H 1.76 #H 1.09 H 1.28 H 0.550-1.02 mg/dL Glomerular Filtration Rate Calc 28 29 52 43 >90 mL/min BUN/Creatinine Ratio 24.4 H 17.6 22.9 H 23.4 H 10.0-20.0 Serum Glucose 96 131 H 101 106 74-106 mg/dL Calcium Level 9.6 9.5 9.8 9.8 8.7-10.4 mg/dL Total Bilirubin 0.8 0.6 0.2-1.0 mg/dL Aspartate Amino Transferase (AST) 524 H 40 13-40 U/L Alanine Aminotransferase (ALT) 387 H 37 7-40 U/L Alkaline Phosphatase 104 82 46-116 U/L Total Protein 6.4 6.9 5.7-8.2 g/dL Albumin 4.4 4.7 3.2-4.8 g/dL Prothrombin Time 13.3 H 9.3-11.8 sec Prothrombin Time INR 1.29 H 0.9-1.15 Activated Partial Thromboplast Time 32.6 24.5-34.5 SEC Assessment Acute kidney injury superimposed Chronic Kidney Disease secondary hemodynamic mediated Left ankle fracture Chronic diastolic heart failure Atrial fibrillation Seizure disorder History of kidney stones Anemia of chronic kidney disease Recommendations Closely monitor fluid and electrolytes Avoid nephrotoxic medications Strict I&Os Check urinalysis urine lytes and urine protein excretion Check kidney ultrasound Resume home medication Cardiology consult We will continue to follow Patient seen and examined by myself. I discussed my plan of care with the patient and primary nurse at the bedside I would like to thank Dr. Black for the consult, will follow up Plan discussed with: Patient RONALD ROCA MD Nov 18, 2024 12:07
--- NOTE | 2024-11-18 14:24 | DVH ---
INDICATION: ckd4 TECHNIQUE: Multiple real-time sonographic images of the kidneys and bladder were obtained. COMPARISON: US KIDNEY on DOS: 12/12/23 FINDINGS: RIGHT kidney measures 10.3 cm in length. No hydronephrosis. LEFT kidney measures 10.0 cm in length. No hydronephrosis. Bladder is contracted. IMPRESSION: 1. Unremarkable examination.
[2024-11-18] MEDS: GABAPENTIN 300 MG CAP PO SCH (15:01)
[2024-11-18] MEDS ORDERED: levETIRAcetam 500 MG TAB PO SCH (22:00)
[2024-11-19 05:00] VITALS: BP 128/57; PULSE 71; RESP 18; TEMP 99.2; O2SAT 96
[2024-11-19 06:57] LABS: Basophils # (auto) 0.1 10 ^3/uL (0-0.2); Eosinophils # (auto) 0.1 10 ^3/uL (0-0.8); Hemoglobin 8.6 g/dL (12.2-16.2); Neutrophils # (auto) 5.3 10 ^3/uL (1.6-8.6); Nucleated Red Blood Cells % 0.1 %; Red Cell Distribution Width 16.3 % (11.8-14.3)
[2024-11-19 06:59] LABS: Basophils % (auto) 0.9 % (0.0-2.0); Hematocrit 28.1 % (36.0-46.0); Lymphocytes % (auto) 13.5 % (10.0-50.0); Mean Corpuscular Hemoglobin 25.4 pg (28.0-32.0); Mean Corpuscular Hgb Conc. 30.6 g/dL (32.0-36.0); Monocytes # (auto) 0.8 10 ^3/uL (0-1.3); Monocytes % (auto) 10.8 % (0.0-12.0); Neutrophils % (auto) 73.8 % (37.0-80.0); Platelet Count (auto) 254 10^3/uL (140-450); Red Blood Cells 3.38 10^6/uL (4.0-5.20); White Blood Cell 7.2 10^3/uL (4.4-10.8)
[2024-11-19 07:04] LABS: Chloride 106 mmol/L (98-107); Potassium 4.4 mmol/L (3.5-5.1); Sodium 142 mmol/L (136-145)
[2024-11-19 07:05] LABS: Anion Gap 8 (5-15); Carbon Dioxide 28 mmol/L (20-31)
[2024-11-19 07:06] LABS: Calcium 9.6 mg/dL (8.7-10.4)
[2024-11-19 07:10] LABS: Glucose 100 mg/dL (74-106)
[2024-11-19 07:11] LABS: BUN/Creatinine Ratio 28.5 (10.0-20.0)
[2024-11-19 07:14] LABS: Blood Urea Nitrogen 37 mg/dL (9-23)
[2024-11-19 09:00] VITALS: BP 124/51; PULSE 62; RESP 16; TEMP 98.6; O2SAT 95
[2024-11-19] MEDS ORDERED: ENOXAPARIN SOD 40 MG/0.4 ML SYRINGE SC SCH (10:00)
--- NOTE | 2024-11-19 11:53 | DVHPN2 ---
Progress Note Date Seen: Nov 19, 2024 Medical Necessity Reason Pt with a Central, PICC or Fol: No Objective vital signs Vital Sign Date Time Temp Pulse Resp B/P (MAP) Pulse Ox O2 Delivery O2 Flow Rate FiO2 11/19/24 09:08 64 105/53 11/19/24 09:00 98.6 16 95 98.6 11/19/24 08:05 Nasal Cannula* 2 28 Total Intake and Output 11/18/24 11/18/24 11/19/24 15:00 23:00 07:00 Intake Total 100 ml 300 ml 400 ml Balance 100 ml 300 ml 400 ml medications Current Medications Medications Dose Ordered Sig/Tyrone Route Start Time Stop Time Status Last Admin Dose Admin Carvedilol 6.25 mg Q12HR PO 11/16/24 10:00 11/19/24 09:08 6.25 MG Sodium Chloride 10 ml Q8HR IV 11/16/24 06:00 11/19/24 06:40 10 ML Acetaminophen/ Hydrocodone Bitart 1 tab Q4HP PRN PO 11/16/24 04:00 11/19/24 06:34 1 TAB Docusate Sodium 100 mg BIDPRN PRN PO 11/16/24 04:00 Acetaminophen 650 mg Q6HP PRN PO 11/16/24 04:00 Enoxaparin Sodium 40 mg DAILY SC 11/17/24 10:00 11/19/24 09:08 40 MG Cefepime HCl 50 ml @ 12.5 mls/hr Q24H IV 11/17/24 23:00 11/18/24 00:25 12.5 MLS/HR Gabapentin 300 mg TID PO 11/18/24 14:00 11/19/24 06:34 300 MG Levetiracetam 500 mg BID PO 11/18/24 22:00 Hold Examination: GENERAL:Normal, CVS:Abnormal, ABDOMEN:Normal laboratory and microbiology Laboratory Tests 11/19/24 06:15 Test 11/19/24 06:15 Range/Units Serum Glucose 100 74-106 mg/dL Problem List/Assessment/Plan Problem List/Assessment/Plan Acute kidney injury superimposed Chronic Kidney Disease secondary hemodynamic mediated Left ankle fracture Chronic diastolic heart failure Atrial fibrillation Seizure disorder History of kidney stones Anemia of chronic kidney disease Aniya resolving rate control noted low salt diet, avoid hypotension Avoid nephrotoxic medications Strict I&Os kidney ultrasound unremarkable Cardiology Plan discussed with: Patient KANNAN VERONICA MD Nov 19, 2024 11:53
[2024-11-19 13:00] VITALS: BP 111/42; PULSE 63; RESP 18; TEMP 99.8; O2SAT 93
[2024-11-19 16:49] VITALS: BP 118/54; PULSE 60; RESP 14; TEMP 97.4; O2SAT 95
[2024-11-19 21:00] VITALS: BP 124/46; PULSE 54; RESP 18; TEMP 98.3; O2SAT 93
[2024-11-20 00:35] VITALS: BP 123/38; PULSE 52; RESP 19; TEMP 98.2; O2SAT 93
[2024-11-20 05:00] VITALS: BP 113/46; PULSE 43; RESP 17; TEMP 98.2; O2SAT 94
[2024-11-20 07:14] LABS: Anion Gap 10 (5-15); Calcium 9.1 mg/dL (8.7-10.4); Carbon Dioxide 26 mmol/L (20-31); Chloride 105 mmol/L (98-107); Potassium 4.7 mmol/L (3.5-5.1); Sodium 141 mmol/L (136-145)
[2024-11-20 07:20] LABS: BUN/Creatinine Ratio 31.4 (10.0-20.0); Blood Urea Nitrogen 53 mg/dL (9-23); Glucose 104 mg/dL (74-106)
[2024-11-20 09:38] VITALS: BP 152/59; PULSE 51; RESP 18; TEMP 98; O2SAT 98
--- NOTE | 2024-11-20 10:45 | DVHPN2 ---
Progress Note Date Seen: Nov 20, 2024 Medical Necessity Reason Pt with a Central, PICC or Fol: No Objective vital signs Vital Sign Date Time Temp Pulse Resp B/P (MAP) Pulse Ox O2 Delivery O2 Flow Rate FiO2 11/20/24 09:38 98.0 51 18 152/59 (90) 98 98.0 11/20/24 08:05 Nasal Cannula* 2 28 Total Intake and Output 11/19/24 11/19/24 11/20/24 15:00 23:00 07:00 Intake Total 925 ml 450 ml Output Total 400 ml Balance 525 ml 450 ml medications Current Medications Medications Dose Ordered Sig/Tyrone Route Start Time Stop Time Status Last Admin Dose Admin Carvedilol 6.25 mg Q12HR PO 11/16/24 10:00 11/20/24 08:48 6.25 MG Sodium Chloride 10 ml Q8HR IV 11/16/24 06:00 11/20/24 06:13 10 ML Acetaminophen/ Hydrocodone Bitart 1 tab Q4HP PRN PO 11/16/24 04:00 11/20/24 08:49 1 TAB Docusate Sodium 100 mg BIDPRN PRN PO 11/16/24 04:00 Acetaminophen 650 mg Q6HP PRN PO 11/16/24 04:00 Enoxaparin Sodium 40 mg DAILY SC 11/17/24 10:00 11/20/24 08:47 40 MG Cefepime HCl 50 ml @ 12.5 mls/hr Q24H IV 11/17/24 23:00 11/19/24 22:10 12.5 MLS/HR Gabapentin 300 mg TID PO 11/18/24 14:00 11/20/24 06:13 300 MG Levetiracetam 500 mg BID PO 11/18/24 22:00 Hold Examination: GENERAL:Normal, MSK:Abnormal laboratory and microbiology Laboratory Tests 11/20/24 05:54 11/19/24 06:15 Test 11/20/24 05:54 Range/Units Serum Glucose 104 74-106 mg/dL Problem List/Assessment/Plan Problem List/Assessment/Plan Acute kidney injury ckd 3 Left ankle fracture s/p Surgery 11/16 Chronic diastolic heart failure Atrial fibrillation Seizure disorder History of kidney stones Anemia of chronic kidney disease obtain UA today rate control noted low salt diet, avoid hypotension Avoid nephrotoxic medications Strict I&Os kidney ultrasound unremarkable Cardiology Plan discussed with: Patient KANNAN VERONICA MD Nov 20, 2024 10:45
[2024-11-20 13:00] VITALS: BP 103/40; PULSE 88; RESP 18; TEMP 97.9; O2SAT 99
--- NOTE | 2024-11-20 13:24 | DVHPN2 ---
Reviewed: Care Plan, H&P, Labs, Medications, Previous Orders, Radiology Changes from previous H/P or p: No Changes Eyes: No Pain, No Vision change, No Conjunctivae inflammation, No Eyelid inflammation, No Other, No Redness ENT: No Ear pain, No Ear discharge, No Nose pain, No Nose discharge, No Nose congestion, No Mouth pain, No Mouth swelling, No Throat pain, No Throat swelling, No Other Cardiovascular: No Chest Pain, No Palpitations, No Orthopnea, No Paroxysmal Noc. Dyspnea, No Edema, No Lt Headedness, No Other Respiratory: No Cough, No Dry; Shortness of breath; No SOB with excertion, No Wheezing, No Hemoptysis, No Pleuritic Pain, No Sputum, No Other Gastrointestinal: No Nausea, No Vomiting, No Abdominal Pain, No Diarrhea, No Constipation, No Melena, No Hematochezia, No Other Genitourinary: No Dysuria, No Frequency, No Incontinence, No Hematuria, No Retention, No Other Musculoskeletal: other (Joint swelling, R ankle); No neck pain, No shoulder pain, No arm pain, No back pain, No hand pain, No leg pain, No foot pain Skin: No Rash, No Lesions, No Jaundice, No Bruising, No Other Objective Vitals Vital Signs Date Time Temp Pulse Resp B/P (MAP) Pulse Ox O2 Delivery O2 Flow Rate FiO2 11/20/24 09:48 42 115/35 11/20/24 09:38 98.0 18 98 98.0 11/20/24 08:05 Nasal Cannula* 2 28 Intake/Output Intake and Output 11/20/24 07:00 Intake Total 1375 ml Output Total 400 ml Balance 975 ml Intake Oral 1325 ml IV Total 50 ml Output Urine Total 400 ml # Voids 5 General Appearance: Alert, Oriented X3, Cooperative, No acute distress Cardiovascular: Regular rate, Normal S1, Normal S2 Abdomen: Normal bowel sounds, Soft, No tenderness, No hepatospenomegaly Neuro: Normal gait, Normal speech, Strength at 5/5 X4 ext, Normal tone, Cranial nerves 3-12 NL Psych/Mental Status: Mental status NL, Mood NL Medications Current Medications Medications Dose Ordered Sig/Tyrone Route Start Time Stop Time Status Last Admin Dose Admin Carvedilol 6.25 mg Q12HR PO 11/16/24 10:00 11/20/24 08:48 6.25 MG Sodium Chloride 10 ml Q8HR IV 11/16/24 06:00 11/20/24 13:04 10 ML Acetaminophen/ Hydrocodone Bitart 1 tab Q4HP PRN PO 11/16/24 04:00 11/20/24 13:03 1 TAB Docusate Sodium 100 mg BIDPRN PRN PO 11/16/24 04:00 Acetaminophen 650 mg Q6HP PRN PO 11/16/24 04:00 Enoxaparin Sodium 40 mg DAILY SC 11/17/24 10:00 11/20/24 08:47 40 MG Cefepime HCl 50 ml @ 12.5 mls/hr Q24H IV 11/17/24 23:00 11/19/24 22:10 12.5 MLS/HR Gabapentin 300 mg TID PO 11/18/24 14:00 11/20/24 13:04 300 MG Levetiracetam 500 mg BID PO 11/18/24 22:00 Hold Laboratory Results Laboratory Tests 11/19/24 06:15 11/20/24 05:54 Chemistry Test 11/20/24 05:54 Calcium Level 9.1 mg/dL (8.7-10.4) Labs and/or images reviewed: Labs reviewed by me, Image(s) reviewed by me Assessment/Plan Assessment/Plan Status post ORIF right ankle fracture AFib with RVR Eliquis 2.5 mg p.o. b.i.d. History of CVA without any deficits Anemia of chronic disease CKD Secondary hyperparathyroidism being followed by profiler hand Physical therapy ordered Family requesting half-way facility placement Time spent 55 minutes Plan discussed with: Patient Date of Service: Nov 20, 2024 Billing Provider: YANCY ARENAS MD Common Visit Codes: [id number] INP/OBS CARE(HIGH) YANCY ARENAS MD Nov 20, 2024 13:23
--- NOTE | 2024-11-20 14:50 | DVHDS2 ---
Discharge Summary Date of Admission Nov 16, 2024 at 04:30 Date of Discharge: Nov 20, 2024 Admitting Diagnosis Right ankle fracture Wounds: Right ankle fracture Labs/Diagnostic Data: Laboratory Results Test 11/20/24 05:54 11/19/24 06:15 11/17/24 05:42 11/15/24 17:39 Sodium Level 141 mmol/L (136-145) Potassium Level 4.7 mmol/L (3.5-5.1) Chloride Level 105 mmol/L (98-107) Carbon Dioxide Level 26 mmol/L (20-31) Anion Gap 10 (5-15) Blood Urea Nitrogen 53 mg/dL (9-23) Creatinine 1.69 mg/dL (0.550-1.02) Glomerular Filtration Rate Calc 31 mL/min (>90) BUN/Creatinine Ratio 31.4 (10.0-20.0) Serum Glucose 104 mg/dL (74-106) Calcium Level 9.1 mg/dL (8.7-10.4) White Blood Count 7.2 10^3/uL (4.4-10.8) Red Blood Count 3.38 10^6/uL (4.0-5.20) Hemoglobin 8.6 g/dL (12.2-16.2) Hematocrit 28.1 % (36.0-46.0) Mean Corpuscular Volume 83.0 fL (80.0-100.0) Mean Corpuscular Hemoglobin 25.4 pg (28.0-32.0) Mean Corpuscular Hemoglobin Concent 30.6 g/dL (32.0-36.0) Red Cell Distribution Width 16.3 % (11.8-14.3) Platelet Count 254 10^3/uL (140-450) Mean Platelet Volume 7.0 fL (6.9-10.8) Neutrophils (%) (Auto) 73.8 % (37.0-80.0) Lymphocytes (%) (Auto) 13.5 % (10.0-50.0) Monocytes (%) (Auto) 10.8 % (0.0-12.0) Eosinophils (%) (Auto) 1.0 % (0.0-7.0) Basophils (%) (Auto) 0.9 % (0.0-2.0) Neutrophils # (Auto) 5.3 10 ^3/uL (1.6-8.6) Lymphocytes # (Auto) 1.0 10 ^3/uL (0.4-5.4) Monocytes # (Auto) 0.8 10 ^3/uL (0-1.3) Eosinophils # (Auto) 0.1 10 ^3/uL (0-0.8) Basophils # (Auto) 0.1 10 ^3/uL (0-0.2) Nucleated Red Blood Cells 0.1 % Total Bilirubin 0.8 mg/dL (0.2-1.0) Aspartate Amino Transferase (AST) 524 U/L (13-40) Alanine Aminotransferase (ALT) 387 U/L (7-40) Alkaline Phosphatase 104 U/L (46-116) Total Protein 6.4 g/dL (5.7-8.2) Albumin 4.4 g/dL (3.2-4.8) Prothrombin Time 13.3 sec (9.3-11.8) Prothrombin Time INR 1.29 (0.9-1.15) Activated Partial Thromboplast Time 32.6 SEC (24.5-34.5) Other Laboratory Tests 11/20/24 05:54 11/19/24 06:15 Brief Hx & Hospital Course: 79-year-old female with a history of CVA without any deficits chronic anemia CKD secondary hyperparathyroidism had a mechanical fall sustained fracture to the right ankle and underwent ORIF by Dr Harrington on 11/17/2024. Received physical therapy history of AFib CVA anemia of chronic disease CKD and hyperparathyroidism. Patient is being discharged to custodial facility for rehab and the plan is acceptable with the patient's sonGrant and the patient Consults/Reason for consult Orthopedic Dr Harrington Operations or Procedures ORIF Condition at Discharge: Good Final Diagnosis/Problems List Right trimalleolar ankle fracture/dislocation status post ORIF by Dr. Harrington 11-17- Status post ORIF right ankle fracture AFib with RVR Eliquis 2.5 mg p.o. b.i.d. History of CVA without any deficits Anemia of chronic disease CKD Secondary hyperparathyroidism being followed by pin maker Discharge Disposition: Residential Facility Discharge Instruct/Medications Diet: Cardiac 2g Na,low cholest Activity: Light activity Activity comment: Weight-bearing as tolerated right lower extremity Follow Up/Referral: Follow up with the group home Medications: see list 35 (Time taken for discharge summary 35 minutes) Discharge Statement: "Patient was advised to return to the ER or call 911 if any headaches, dizziness, shortness of breath, chest pain, abdominal pain, bleeding, fevers, or worsening of medical condition. Patient was counseled about treatment plan, medications, possible side effects, patientverbalized understanding. All questions were answered to the best of my ability. This discharge took greater then 30 minutes in planning, reviewing documentation, counseling the patient, and discussing with other team members." ASSESSMENT ASSESSMENT Hospital Course Improved Assessment Right trimalleolar ankle fracture/dislocation status post ORIF by Dr. Harrington 11-17- Status post ORIF right ankle fracture AFib with RVR Eliquis 2.5 mg p.o. b.i.d. History of CVA without any deficits Anemia of chronic disease CKD Secondary hyperparathyroidism being followed by pin maker Date of Service: Nov 20, 2024 Billing Provider: YANCY ARENAS MD Common Visit Codes: [id number] INP/OBS CARE(HIGH) YANCY ARENAS MD Nov 20, 2024 14:50
[2024-11-20 17:29] VITALS: BP 103/40; PULSE 88; RESP 18; TEMP 97.9; O2SAT 99
[2024-11-20 17:52] VITALS: BP 113/49; PULSE 45; RESP 18; TEMP 97.6; O2SAT 92
[2024-11-20 20:36] LABS: COVID19 ANTIGEN SOFIA FIA NEGATIVE (NEGATIVE)
== END 2024-11-20 20:12 | DRG 493 ==
LOC: ER 16:51 → OVERFLOW 11-16 04:30 → EAST 11-16 14:32
PROVIDERS: ADMIT Family Medicine; ATTEND Family Medicine
PROC: 0QSG04Z Reposition Right Tibia with Internal Fixation Device, Open Approach (ICD-10-PCS; 2024-11-16)
PROC: 0QSJ04Z Reposition Right Fibula with Internal Fixation Device, Open Approach (ICD-10-PCS; principal; 2024-11-16 10:23)
DX: S82.851A Displaced trimalleolar fracture of right lower leg, initial encounter for closed fracture (principal); I13.0 Hypertensive heart and chronic kidney disease with heart failure and stage 1 through stage 4 chronic kidney disease, or unspecified chronic kidney disease; I50.32 Chronic diastolic (congestive) heart failure; N17.9 Acute kidney failure, unspecified; Z68.41 Body mass index [BMI] 40.0-44.9, adult; E21.1 Secondary hyperparathyroidism, not elsewhere classified; D63.1 Anemia in chronic kidney disease; Z20.822 Contact with and (suspected) exposure to COVID-19; G40.909 Epilepsy, unspecified, not intractable, without status epilepticus; W18.39XA Other fall on same level, initial encounter; E66.9 Obesity, unspecified; K59.00 Constipation, unspecified; N18.30 Chronic kidney disease, stage 3 unspecified; E21.3 Hyperparathyroidism, unspecified; I48.91 Unspecified atrial fibrillation; S82.892A Other fracture of left lower leg, initial encounter for closed fracture; Z79.891 Long term (current) use of opiate analgesic; Z79.899 Other long term (current) drug therapy; Z79.01 Long term (current) use of anticoagulants; Z79.82 Long term (current) use of aspirin; Z90.710 Acquired absence of both cervix and uterus; Z87.442 Personal history of urinary calculi; Z86.73 Personal history of transient ischemic attack (TIA), and cerebral infarction without residual deficits; Z83.3 Family history of diabetes mellitus; Z82.49 Family history of ischemic heart disease and other diseases of the circulatory system; Z82.5 Family history of asthma and other chronic lower respiratory diseases; Y93.89 Activity, other specified; Y99.8 Other external cause status; Y92.098 Other place in other non-institutional residence as the place of occurrence of the external cause
CPT/HCPCS: 36415; 71045; 73600; 73610; 76000; 76775; 80048; 80053; 85025; 85610; 85730; 86850; 86900; 86901; 87426; 94640; 96374; 96375; 96376; 97116; 97163; 97530; G0378; J0131; J2250; J2405; J2704; J3490

== ENCOUNTER 2025-07-16 11:55 | Emergency (ER) | payer OTHER ==
[~2025-07-16] VITALS: Ht 149.9 cm; Wt 54.4 kg
[~2025-07-16 11:55] MED LIST changes: -ASPI-543 PO; -CLOP75TA28 PO; -DICY-89 PO; -DICY20TA PO; -DULO1CAP6 PO; -DULO60CA41 PO; -EMPA1TAB PO; -PERCOT PO; -SACU1TAB PO
--- NOTE | 2025-07-16 12:01 | ED.PDOC ---
History of Present Illness HPI Comments 80-year-old female who comes in with chief complaint of pain and swelling to the right ankle and foot. The patient denies any chest pain or shortness for breath. She currently lives at an assisted living area and she is having difficulty ambulating secondary to the pain and swelling. She did have surgery on the ankle in January of this year but she does not recall where she had the surgery. The patient denies any other complaints at this time. Time Seen by MD: 11:58 Primary Care Provider: Brenton Reviewed Notes: Nurses Notes, Medications, Allergies (No allergies to medications) Allergies: Coded Allergies: NO KNOWN ALLERGIES (Unverified , 05/12/21) Home Meds Active Scripts Furosemide (Furosemide) 40 Mg Tab, 40 MG PO DAILY, #30 TAB Prov:ASHVIN DOMINGUEZ MD 10/18/24 Albuterol Sulfate (Albuterol Sulfate Hfa) 108 Mcg/Act Aer, 1 PUFF INH Q4HPRN PRN, #1 AER Prov:ASHVIN DOMINGUEZ MD 10/18/24 Senna (Senokot) 8.6 Mg Tab, 1 TAB PO BID, #40 TAB Prov:ASHVIN DOMINGUEZ MD 02/15/24 Apixaban Base (ELIQUIS) 2.5 Mg Tab, 2.5 MG PO BID, #60 TAB Prov:MENDOZA HUNT MD 10/30/23 Reported Medications Gabapentin (Gabapentin) 300 Mg Cap, 600 MG PO DAILY for 30 Days, MG 02/13/24 Dorzolamide-Timolol (Dorzolamide Hcl/Timolol M) 1 Ml Marifer, DROP 12/13/23 Amiodarone Hcl (Amiodarone Hcl) 200 Mg Tab, 1 TAB PO DAILY 12/13/23 Brinzolamide-Brimonidine Tartr (SIMBRINZA) 1 Ml Jessica, 1 DROP RIGHTEYE BID Shake liquid 12/13/23 Latanoprost (Xalatan) 0.005 % Marifer, 1 DROP EACHEYE QPM 12/13/23 Gabapentin (Gabapentin) 300 Mg Cap, CAP PO BID Take 2 capsules (600 mg) by mouth in the morning, and take 4 capsules (1200 mg) my mouth in the evening 12/13/23 Trazodone Hcl (Trazodone Hcl) 50 Mg Tab, 1 TAB PO HS 12/13/23 Levetiracetam (Levetiracetam) 250 Mg Tab, 250 MG PO BID 05/14/21 Montelukast Sodium (MONTELUKAST SODIUM) 10 Mg Tab, 1 TAB PO DAILY 05/14/21 Levetiracetam (Keppra) 500 Mg Tab, 250 MG PO BID, TAB 05/14/21 Information Source: Patient, Emergency Med Personnel Mode of Arrival: EMS Severity: Moderate Timing: Days Duration: Since onset 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 Location: Right ankle pain as well as swelling and redness Past Medical History PAST MEDICAL HISTORY: AFIB, Anemia, CHF, CKF, CVA, Kidney Stones, Seizures Surgical History: Appendectomy, Hysterectomy, PTCA Surgical History (Other): Previous right ankle surgery FISHING BOAT MATE 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: No 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 History Family History Family History: No family hx of DM, Family hx of Cancer, Family hx of heart [place] Social History Smoker: Non-Smoker Alcohol: Occasionally Drugs: Denies Drug Use Lives In: Home Constitutional: denies: chills, diaphoresis, fatigue, fever, malaise, sweats, weakness, others EENTM: denies: blurred vision, double vision, ear bleeding, ear discharge, ear drainage, ear pain, ear ringing, eye pain, eye redness, hearing loss, mouth pain, mouth swelling, nasal discharge, nose bleeding, nose congestion, nose pain, photophobia, tearing, throat pain, throat swelling, voice changes, others Respiratory: denies: cough, hemoptysis, orthopnea, SOB at rest, shortness of breath, SOB with excertion, stridor, wheezing, others Cardiovascular: denies: chest pain, dizzy spells, diaphoresis, Dyspnea on exertion, edema, irregular heart beat, left arm pain, lightheadedness, palpitations, PND, syncope, others Gastrointestinal: denies: abdomen distended, abdominal pain, blood streaked bowels, constipated, diarrhea, dysphagia, difficulty swallowing, hematemesis, melena, nausea, poor appetite, poor fluid intake, rectal bleeding, rectal pain, vomiting, others Genitourinary: denies: abnormal vagina bleeding, burning, dyspareunia, dysuria, flank pain, frequency, hematuria, incontinence, pain, , vagina discharge, urgency, others Neurological: denies: dizziness, fainting, headache, left sided numbness, left sided weakness, numbness, paresthesia, pre-existing deficit, right sided numbness, right sided weakness, seizure, speech problems, tingling, tremors, weakness, others Musculoskeletal: reports: others (Right ankle pain and swelling); denies: back pain, gout, joint pain, joint swelling, muscle pain, muscle stiffness, neck pain Integumetry: denies: bruises, change in color, change in hair/nails, dryness, laceration, lesions, lumps, rash, wounds, others Allergic/Immunocompromised: denies: Difficulty Healing, Frequent Infections, Hives, Itching, others Hematologic/Lymphatic: denies: anemia, blood clots, easy bleeding, easy bruising, swollen glands, others Endocrine: denies: excessive hunger, excessive sweating, excessive thirst, excessive urination, flushing, intolerance to cold, intolerance to heat, unexplained weight gain, unexplained weight loss, others Psychiatric: denies: anxiety, bipolar disorder, depression, hopeless, panic disorder, schizophrenia, sleepless, suicidal, others Physical Exam General Appearance: Mild Distress HEENT: Normal ENT Inspection, Pharynx Normal, TMs Normal Neck: Full Range of Motion, Non-Tender, Normal, Normal Inspection Respiratory: Chest Non-Tender, Lungs Clear, No Accessory Muscle Use, No Respiratory Distress, Normal Breath Sounds Cardiovascular: No Edema, No JVD, No Murmur, No Gallop, Normal Peripheral Pulses, Regular Rate/Rhythm Breast Exam: Deferred Gastrointestinal: No Organomegaly, Non Tender, No Pulsatile Mass, Normal Bowel Sounds, Soft Genitalia: Deferred Pelvic: Deferred Rectal: Deferred Extremities: No calf tenderness, Normal capillary refill, No pedal edema Musculoskeletal : Location: Right Extremity Location: Ankle Apperance: Swelling, Limited ROM, Tenderness: Moderate Neurologic: Alert, chair lift operator II-XII nml as Tested, No Motor Deficits, Normal Affect, Normal Mood, No Sensory Deficits Cerebellar Function: Normal Reflexes: Normal Skin: Dry, Normal Color, Warm Lymphatic: No Adenopathy Was a procedure done? Was a procedure done?: No Differential Dx Considerations may include: Fracture, strain, gout X-Ray, Labs, Meds, VS Vital Signs Date Time Temp Pulse Resp B/P (MAP) Pulse Ox O2 Delivery O2 Flow Rate FiO2 07/16/25 14:19 98.2 68 18 113/53 (73) 97 98.2 07/16/25 12:05 98.5 62 16 130/66 96 98.5 Lab Test 07/16/25 13:23 07/16/25 12:57 Range/Units Urine Color Colorless Yellow Urine Clarity Clear Clear Urine pH 5.0 5.0-9.0 Urine Specific [place] 1.007 1.001-1.035 Urine Protein Negative Negative Urine Ketones Negative Negative Urine Blood Negative Negative /uL Urine Nitrite Negative Negative Urine Bilirubin Negative Negative Urine Urobilinogen Normal Negative mg/dL Urine Leukocyte Esterase Negative Negative /uL Urine RBC None seen 0 - 4 /hpf Urine Microscopic WBC 3 0-5 /HPF Urine Squamous Epithelial Cells Few <5 /hpf Urine Bacteria None seen None Seen /hpf Urine Glucose Normal Normal mg/dL White Blood Count 8.0 4.4-10.8 10^3/uL Red Blood Count 3.64 L 4.0-5.20 10^6/uL Hemoglobin 9.4 L 12.2-16.2 g/dL Hematocrit 29.4 L 36.0-46.0 % Mean Corpuscular Volume 80.9 80.0-100.0 fL Mean Corpuscular Hemoglobin 25.8 L 28.0-32.0 pg Mean Corpuscular Hemoglobin Concent 31.9 L 32.0-36.0 g/dL Red Cell Distribution Width 16.4 H 11.8-14.3 % Platelet Count 404 140-450 10^3/uL Mean Platelet Volume 6.5 L 6.9-10.8 fL Neutrophils (%) (Auto) 74.0 37.0-80.0 % Lymphocytes (%) (Auto) 15.2 10.0-50.0 % Monocytes (%) (Auto) 9.1 0.0-12.0 % Eosinophils (%) (Auto) 1.1 0.0-7.0 % Basophils (%) (Auto) 0.6 0.0-2.0 % Neutrophils # (Auto) 5.9 1.6-8.6 10 ^3/uL Lymphocytes # (Auto) 1.2 0.4-5.4 10 ^3/uL Monocytes # (Auto) 0.7 0-1.3 10 ^3/uL Eosinophils # (Auto) 0.1 0-0.8 10 ^3/uL Basophils # (Auto) 0 0-0.2 10 ^3/uL Nucleated Red Blood Cells 0.0 % Erythrocyte Sedimentation Rate 39 H 0-20 mm/hr Sodium Level 141 136-145 mmol/L Potassium Level 4.3 3.5-5.1 mmol/L Chloride Level 105 98-107 mmol/L Carbon Dioxide Level 26 20-31 mmol/L Anion Gap 10 5-15 Blood Urea Nitrogen 16 9-23 mg/dL Creatinine 1.04 H 0.550-1.02 mg/dL Glomerular Filtration Rate Calc 54 >90 mL/min BUN/Creatinine Ratio 15.4 10.0-20.0 Serum Glucose 89 74-106 mg/dL Uric Acid 5.7 3.1-7.8 mg/dL Calcium Level 9.0 8.7-10.4 mg/dL Images Reviewed?: Images reviewed and evaluated by me Time of 1ST Reevaluation: 12:04 Reevaluation 1ST: Unchanged Patient Education/Counseling: Diagnosis, Treatment, Prognosis Family Education/Counseling: No Family Present SEPSIS Sepsis Screen Physician Orders Heplock Iv (07/16/25 11:58) R Ankle 3 View (07/16/25 11:58) Vital Signs Date Time Temp Pulse Resp B/P (MAP) Pulse Ox O2 Delivery O2 Flow Rate FiO2 07/16/25 14:19 98.2 68 18 113/53 (73) 97 98.2 07/16/25 12:05 98.5 62 16 130/66 96 98.5 Laboratory Tests Test 07/16/25 12:57 White Blood Count 8.0 10^3/uL (4.4-10.8) Departure 1 Departure Time of Disposition: 14:29 Impression: Primary Impression: Cellulitis of right ankle Additional Impressions: Right ankle pain Qualified Codes: M25.571 - Pain in right ankle and joints of right foot Elevated erythrocyte sedimentation rate Disposition: ADMITTED INPATIENT Admit to: Med Surg Condition: Fair Critical Care Note Critical Care Time?: No Stability Stability form required: Yes Unstable for transfer: ED Physician Assesment (Clinical assesment) Heart Score Heart Score: Heart Score Response (Comments) Value History N/A 0 EKG N/A 0 Age N/A 0 Risk Factors N/A 0 Troponin N/A 0 Total 0 LV ACUNA MD Jul 16, 2025 12:01
--- NOTE | 2025-07-16 12:41 | DVH ---
CLINICAL INDICATION: pain TECHNIQUE: 3 radiographic views of the right ankle were obtained. Comparison: XR ANKLE RIGHT 3 VIEW on DOS: 02/28/25, XY R ANKLE 3 VIEW on DOS: 11/15/24, CR ANKLE LEFT 3 VIEW on DOS: 03/26/24 FINDINGS/IMPRESSION: Malleable compression plate is noted over the distal fibula with internal fixation cortical screws. Syndesmosis screw is noted traversing the fibula anchored to the tibia. Posterior translation of the talar dome is visualized relative to the distal tibia. Unusual appearing callus formation is noted in the distal tibia.
[2025-07-16 13:24] LABS: Nucleated Red Blood Cells % 0.0 %
[2025-07-16 13:27] LABS: Hematocrit 29.4 % (36.0-46.0); Hemoglobin 9.4 g/dL (12.2-16.2); Mean Corpuscular Hemoglobin 25.8 pg (28.0-32.0); Mean Corpuscular Volume 80.9 fL (80.0-100.0)
[2025-07-16 13:29] LABS: Chloride 105 mmol/L (98-107); Potassium 4.3 mmol/L (3.5-5.1); Sodium 141 mmol/L (136-145)
[2025-07-16 13:30] LABS: Anion Gap 10 (5-15); Calcium 9.0 mg/dL (8.7-10.4); Carbon Dioxide 26 mmol/L (20-31)
[2025-07-16 13:35] LABS: BUN/Creatinine Ratio 15.4 (10.0-20.0); Blood Urea Nitrogen 16 mg/dL (9-23); Glucose 89 mg/dL (74-106)
[2025-07-16 13:44] LABS: Urine Protein, UAD Negative (Negative)
[2025-07-16] MEDS: CLINDAMYCIN 600MG IV 50 ML IV ONE (15:23)
[2025-07-16] MEDS ORDERED: NALO4SPR2 (17:12)
[2025-07-16] MEDS ORDERED: HYDR-4902 PO (17:12)
[2025-07-16] MEDS ORDERED: CEFD300C2 PO (17:12)
--- NOTE | 2025-07-16 17:14 | DVHINCON2 ---
Date of service: Jul 16, 2025 Reason for Consultation Ankle pain/cellulitis History of Present Illness 80-year-old female who comes in with chief complaint of pain and swelling to the right ankle and foot. The patient denies any chest pain or shortness for breath. She currently lives at an assisted living area and she is having difficulty ambulating secondary to the pain and swelling. She did have surgery on the ankle in January of this year but she does not recall where she had the surgery. The patient denies any other complaints at this time. Past Medical History AFIB, Anemia, CHF, CKF, CVA, Kidney Stones, Seizures Past Surgical History Appendectomy, Hysterectomy, PTCA Family History: Asthma G8 MOTHER, , Cause: [place] (myocardial infarction) Diabetes mellitus Hypertension Prostate carcinoma G8 FATHER Allergies: Coded Allergies: NO KNOWN ALLERGIES (Unverified , 05/12/21) Home Meds Active Scripts Naloxone HCl (Narcan) 4 Mg/0.1 Ml Spr, 4 MG NA Q5MINP PRN, #1 SPRAY Prov:ASHVIN DOMINGUEZ MD 07/16/25 Hydrocodone-Acetaminophen (Hydrocodone Bitartrate/AC 5-325 mg) 1 Tab Tab, 1 TAB PO Q6HPRN PRN, #10 TAB Prov:ASHVIN DOMINGUEZ MD 07/16/25 Cefdinir (Cefdinir) 300 Mg Cap, 1 CAP PO BID, #14 CAP Prov:ASHVIN DOMINGUEZ MD 07/16/25 Furosemide (Furosemide) 40 Mg Tab, 40 MG PO DAILY, #30 TAB Prov:ASHVIN DOMINGUEZ MD 10/18/24 Albuterol Sulfate (Albuterol Sulfate Hfa) 108 Mcg/Act Aer, 1 PUFF INH Q4HPRN PRN, #1 AER Prov:ASHVIN DOMINGUEZ MD 10/18/24 Senna (Senokot) 8.6 Mg Tab, 1 TAB PO BID, #40 TAB Prov:ASVHIN DOMINGUEZ MD 02/15/24 Apixaban Base (ELIQUIS) 2.5 Mg Tab, 2.5 MG PO BID, #60 TAB Prov:MENDOZA HUNT MD 10/30/23 Reported Medications Gabapentin (Gabapentin) 300 Mg Cap, 600 MG PO DAILY for 30 Days, MG 02/13/24 Dorzolamide-Timolol (Dorzolamide Hcl/Timolol M) 1 Ml Marifer, DROP 12/13/23 Amiodarone Hcl (Amiodarone Hcl) 200 Mg Tab, 1 TAB PO DAILY 12/13/23 Brinzolamide-Brimonidine Tartr (SIMBRINZA) 1 Ml Jessica, 1 DROP RIGHTEYE BID Shake liquid 12/13/23 Latanoprost (Xalatan) 0.005 % Marifer, 1 DROP EACHEYE QPM 12/13/23 Gabapentin (Gabapentin) 300 Mg Cap, CAP PO BID Take 2 capsules (600 mg) by mouth in the morning, and take 4 capsules (1200 mg) my mouth in the evening 12/13/23 Trazodone Hcl (Trazodone Hcl) 50 Mg Tab, 1 TAB PO HS 12/13/23 Levetiracetam (Levetiracetam) 250 Mg Tab, 250 MG PO BID 05/14/21 Montelukast Sodium (MONTELUKAST SODIUM) 10 Mg Tab, 1 TAB PO DAILY 05/14/21 Levetiracetam (Keppra) 500 Mg Tab, 250 MG PO BID, TAB 05/14/21 Review of Systems No complaints of chest pain shortness for breath. No fevers chills or sweats. Other review of systems reviewed normal. Vital Signs Vital Signs Date Time Temp Pulse Resp B/P (MAP) Pulse Ox O2 Delivery O2 Flow Rate FiO2 07/16/25 14:19 98.2 68 18 113/53 (73) 97 98.2 Physical Exam Sitting in the lobby. Labs/Diagnostic Data Labs Test 07/16/25 13:23 07/16/25 12:57 Range/Units Urine Color Colorless Yellow Urine Clarity Clear Clear Urine pH 5.0 5.0-9.0 Urine Specific [place] 1.007 1.001-1.035 Urine Protein Negative Negative Urine Ketones Negative Negative Urine Blood Negative Negative /uL Urine Nitrite Negative Negative Urine Bilirubin Negative Negative Urine Urobilinogen Normal Negative mg/dL Urine Leukocyte Esterase Negative Negative /uL Urine RBC None seen 0 - 4 /hpf Urine Microscopic WBC 3 0-5 /HPF Urine Squamous Epithelial Cells Few <5 /hpf Urine Bacteria None seen None Seen /hpf Urine Glucose Normal Normal mg/dL White Blood Count 8.0 4.4-10.8 10^3/uL Red Blood Count 3.64 L 4.0-5.20 10^6/uL Hemoglobin 9.4 L 12.2-16.2 g/dL Hematocrit 29.4 L 36.0-46.0 % Mean Corpuscular Volume 80.9 80.0-100.0 fL Mean Corpuscular Hemoglobin 25.8 L 28.0-32.0 pg Mean Corpuscular Hemoglobin Concent 31.9 L 32.0-36.0 g/dL Red Cell Distribution Width 16.4 H 11.8-14.3 % Platelet Count 404 140-450 10^3/uL Mean Platelet Volume 6.5 L 6.9-10.8 fL Neutrophils (%) (Auto) 74.0 37.0-80.0 % Lymphocytes (%) (Auto) 15.2 10.0-50.0 % Monocytes (%) (Auto) 9.1 0.0-12.0 % Eosinophils (%) (Auto) 1.1 0.0-7.0 % Basophils (%) (Auto) 0.6 0.0-2.0 % Neutrophils # (Auto) 5.9 1.6-8.6 10 ^3/uL Lymphocytes # (Auto) 1.2 0.4-5.4 10 ^3/uL Monocytes # (Auto) 0.7 0-1.3 10 ^3/uL Eosinophils # (Auto) 0.1 0-0.8 10 ^3/uL Basophils # (Auto) 0 0-0.2 10 ^3/uL Nucleated Red Blood Cells 0.0 % Erythrocyte Sedimentation Rate 39 H 0-20 mm/hr Sodium Level 141 136-145 mmol/L Potassium Level 4.3 3.5-5.1 mmol/L Chloride Level 105 98-107 mmol/L Carbon Dioxide Level 26 20-31 mmol/L Anion Gap 10 5-15 Blood Urea Nitrogen 16 9-23 mg/dL Creatinine 1.04 H 0.550-1.02 mg/dL Glomerular Filtration Rate Calc 54 >90 mL/min BUN/Creatinine Ratio 15.4 10.0-20.0 Serum Glucose 89 74-106 mg/dL Uric Acid 5.7 3.1-7.8 mg/dL Calcium Level 9.0 8.7-10.4 mg/dL Assessment Right ankle pain with recent history of ankle fracture surgery in October 2024. Patient has mild erythema in the ankle. No open wound. Patient is essentially complains of pain with weight-bearing. Her labs reviewed do not show any evidence of SIRS or sepsis. Vital signs are stable and she is afebrile. Ankle cellulitis is minimal which can be treated with the antibiotics as an outpatient basis. Given her mean complains of pain I will provide oral narcotic as well as Narcan for pain control. She is given instructions to follow up tomorrow at [facility] urgent Care for further evaluation of her ankle pain/redness. Meantime she is advised to continue the antibiotics as prescribed. Otherwise patient does not meet inpatient criteria for admission. Discussed with the ER physician. Problems(with codes): (1) Cellulitis of right ankle (2) Right ankle pain Plan discussed with: Other ASHVIN DOMINGUEZ MD Jul 16, 2025 17:14
[2025-07-16 17:42] VITALS: BP 118/63; PULSE 70; RESP 16; TEMP 98; O2SAT 98
== END 2025-07-16 17:42 | disposition home or self-care (01) ==
LOC: EDUNIT# 11:55 → ER 11:55 → EDBD 11:55 → ER 17:42
DX: L03.115 Cellulitis of right lower limb (principal); R70.0 Elevated erythrocyte sedimentation rate; I50.9 Heart failure, unspecified; I48.91 Unspecified atrial fibrillation; D64.9 Anemia, unspecified; Z79.899 Other long term (current) drug therapy; Z86.73 Personal history of transient ischemic attack (TIA), and cerebral infarction without residual deficits; Z87.442 Personal history of urinary calculi; Z90.49 Acquired absence of other specified parts of digestive tract; Z90.710 Acquired absence of both cervix and uterus; Z98.890 Other specified postprocedural states
CPT/HCPCS: 36415; 73610; 80048; 81001; 84550; 85025; 85652; 96365; 99284; J3490